=== PATIENT | female | born 1935 | race Caucasian/White ===

== ENCOUNTER 2018-10-04 11:35 | Inpatient (IN) | payer OTHER ==
--- NOTE | 2018-10-04 12:34 | EKG ---
Test Date: 2018-10-04 Test Time: 12:07:49 Tube Mill Operator: MERLENE MEASUREMENT RESULTS: Intervals: Rate: 80 LA: QRSD: 82 QT: 368 QTc: 424 [place]: P: LA: QRS: 37 T: 63 INTERPRETIVE STATEMENTS: Atrial fibrillation with premature ventricular or aberrantly conducted complexes Abnormal ECG No previous ECG available for comparison Electronically Signed On 10-04-18 12:33:25 HAND OR MACHINE PASTER by Braeden Oneil
[2018-10-04 12:44] LABS: Absolute Lymphocytes (CBC) 1.4 K/uL (0.7-4.9); Absolute Monocytes 0.8 K/uL (0.1-1.3); Absolute Neutrophil 5.6 K/uL (1.8-8.0); Basophils % 0.9 % (0-1.3); Eosinophils % 0.7 % (0-4.4); Hematocrit 46.5 % (36.0-45.0); Lymphocytes % 17.6 % (15.3-44.8); MPV 9.4 fL (7.6-11.3); Monocytes % 9.9 % (3.3-12.3); RBC Red Blood Cell Count 5.07 M/uL (3.86-4.86)
[2018-10-04 12:48] LABS: Protime INR 1.08
--- NOTE | 2018-10-04 12:48 | RAD REPORT ---
EXAM DESCRIPTION: RAD - Chest Single View - 10/04/2018 12:42 pm CLINICAL HISTORY: weakness, new onset afib Chest pain. COMPARISON: Chest Single View dated 11/28/2016; CHEST PA AND LAT 2 VIEW dated 02/15/2012 FINDINGS: Portable technique limits examination quality. The lungs are grossly clear. The heart is upper limit of normal in size. No displaced fractures. IMPRESSION: No acute intrathoracic process suspected.
[2018-10-04 12:57] LABS: ALT/SGPT 25 U/L (12-78); AST/SGOT 24 U/L (15-37); Alkaline Phosphatase 117 U/L (45-117); BUN Blood Urea Nitrogen 14 mg/dL (7-18); Bicarbonate 28 mmol/L (21-32); Bilirubin Direct 0.2 mg/dL (0-0.2); Bilirubin Total 0.7 mg/dL (0.2-1.0); Glucose Level 99 mg/dL (74-106); Magnesium 2.1 mg/dL (1.8-2.4); NT PRO-BNP 1426 pg/mL (<450); Potassium 3.6 mmol/L (3.5-5.1); Protein, Total 8.2 g/dL (6.4-8.2); Sodium Level 140 mmol/L (136-145); Troponin (Emerg Dept Use Only) < 0.02 ng/mL (0.0-0.045)
[2018-10-04] MEDS ORDERED: ENOXAPARIN 100 MG/ML SYR SQ ONE (13:32)
[2018-10-04 13:34] LABS: Thyroid Stimulating Hormone 4.94 uIU/mL (0.360-3.740)
--- NOTE | 2018-10-04 14:11 | ER ---
Nurse's Notes [facility] Name: Mariely Bass Age: 82 yrs Sex: Female : 1935 Arrival Date: 10/04/2018 Time: 11:40 Bed 8 Private MD: Eduin Araiza E Diagnosis: Unspecified atrial fibrillation-new onset Presentation: 10/04 11:46 Presenting complaint: Child states: she started feeling tired yesterday, i fell last tw2 week and i hurt my left rib, "i feel puny" per pt. Transition of care: patient was not received from another setting of care. Onset of symptoms was October 04, 2018. Risk Assessment: Do you want to hurt yourself or someone else? Patient reports no desire to harm self or others. Initial Sepsis Screen: Does the patient meet any 2 criteria? No. Patient's initial sepsis screen is negative. Does the patient have a suspected source of infection? No. Patient's initial sepsis screen is negative. Care prior to arrival: None. 11:46 Method Of Arrival: Wheelchair tw2 11:46 Acuity: RUDDY 3 tw2 Triage Assessment: 11:48 General: Appears in no apparent distress. Behavior is calm, cooperative, appropriate tw2 for age. Pain: Denies pain. Historical: - Allergies: 11:48 PENICILLINS; tw2 - Home Meds: 11:48 levothyroxine oral [Active]; tw2 - PMHx: 11:48 breast cancer; Hypothyroidism; tw2 - PSHx: 11:48 Tubal ligation; tw2 - Immunization history:: Adult Immunizations. - Social history:: Smoking status: Patient/guardian denies using tobacco. - Ebola Screening: : Patient denies travel to an Ebola-affected area in the 21 days before illness onset. Screenin:11 Abuse screen: Denies threats or abuse. Denies injuries from another. Nutritional bp screening: No deficits noted. Tuberculosis screening: No symptoms or risk factors identified. Fall Risk None identified. Assessment: 11:50 General: Appears distressed, comfortable, obese, Behavior is cooperative, appropriate bp for age, listless. Pain: Denies pain. Neuro: Level of Consciousness is awake, alert, obeys commands, Oriented to person, place, time, situation, Appropriate for age. Cardiovascular: Rhythm is atrial fibrillation. Respiratory: Airway is patent Respiratory effort is even, unlabored, Respiratory pattern is regular, symmetrical. GI: No signs and/or symptoms were reported involving the gastrointestinal system. : No signs and/or symptoms were reported regarding the genitourinary system. EENT: No deficits noted. Derm: No deficits noted. Musculoskeletal: Circulation, motion, and sensation intact. Range of motion: intact in all extremities. 12:11 Reassessment: NEW ONSET AFIB NOTED ON EKG. bp 13:27 Reassessment: ALL CURRENT ORDERS COMPLETED, DISPO PENDING. bp 14:36 Reassessment: AFIB ON MONITOR, ADMIT IN PROCESS. bp 16:00 Reassessment: ADMIT ON HOLD FOR CT BRAIN AND RESULT. bp 17:00 Reassessment: ADMIT IN PROCESS, MRI PENDING. bp Vital Signs: 11:47 BP 180 / 87; Pulse 85; Resp 19; Temp 98.1(O); Pulse Ox 98% on R/A; Weight 81.65 kg (R); tw2 Height 5 ft. 4 in. (162.56 cm); Pain 0/10; 12:07 BP 191 / 99; Pulse 80; Resp 16; Pulse Ox 98% ; bp 12:30 BP 183 / 77; Pulse 82; Resp 15; Pulse Ox 99% ; bp 13:27 BP 181 / 85; Pulse 86; Resp 19; Pulse Ox 96% ; bp 14:30 BP 184 / 89; Pulse 86; Resp 11; Pulse Ox 97% ; bp 15:00 BP 179 / 80; Pulse 86; Resp 15; Pulse Ox 96% ; bp 16:00 BP 170 / 83; Pulse 92; Resp 19; Pulse Ox 98% ; bp 17:00 BP 185 / 85; Pulse 92; Resp 20; Pulse Ox 97% ; bp 11:47 Body Mass Index 30.90 (81.65 kg, 162.56 cm) tw2 ED Course: 11:40 Patient arrived in ED. mr 11:40 Eduin Araiza MD is Private Physician. mr 11:47 Triage completed. tw2 11:48 Arm band placed on. tw2 11:59 Blane Wylie, JULIAN is Primary Nurse. bp 12:00 Edwardo Devi NP is PHCP. pm1 12:00 Niall Blanchard MD is Attending Physician. pm1 12:11 Patient has correct armband on for positive identification. Placed in gown. Bed in low bp position. Call light in reach. Side rails up X2. Adult w/ patient. 12:25 EKG done, by technical support director. reviewed by Edwardo Devi NP. Initial lab(s) drawn, by , jb1 sent to lab. Inserted saline lock: 22 gauge in right antecubital area, using aseptic technique. Blood collected. 12:37 X-ray completed. Portable x-ray completed in exam room. Patient tolerated procedure jb2 well. 12:43 XRAY Chest (1 view) In Process Unspecified. EDMS 14:09 Codey Chisholm DO is Hospitalizing Provider. pm1 16:[address] 2 16:23 CT completed. Patient tolerated procedure well. Patient moved back from CT. ky 16:50 Straight cath inserted, using sterile technique, 14 Fr. Specimen obtained. jb1 16:51 Urine Culture Sent. jb1 17:21 No provider procedures requiring assistance completed. Patient admitted, IV remains in bp place. Administered Medications: 13:20 Drug: Lovenox 1 mg/kg Route: Sub-Q; Site: right lower abdomen; bp 14:40 Follow up: Response: No adverse reaction bp Outcome: 14:11 Decision to Hospitalize by Provider. pm1 17:20 Admitted to Med/surg accompanied by tech, family with patient, via stretcher, room 221, bp with chart, Report called to CRISTINE JORDAN 17:20 Condition: stable 17:20 Instructed on the need for admit. 17:39 Patient left the ED. bp Signatures: Dispatcher [employer] EDNJ Bg Brooks jb1 Emilee Cote, Noe jb2 Edwardo Devi, JUANIS SHAKER REPAIRER pm1 Zohra Olivarez, RN RN tw2 Daron Manley Victoria vm2 Blane Wylie, JULIAN RN bp Corrections: (The following items were deleted from the chart) 16:51 16:50 Straight cath inserted, using sterile technique, 16 Fr. Specimen obtained. jb1 jb1
--- NOTE | 2018-10-04 14:11 | EDPHYS ---
Physician Documentation [facility] Name: Mariely Bass Age: 82 yrs Sex: Female : 1935 Arrival Date: 10/04/2018 Time: 11:40 Bed 8 Private MD: Eduin Araiza E ED Physician Niall Blanchard HPI: 10/04 01:00 This 82 yrs old Female presents to ER via Wheelchair with complaints of High pm1 Blood Pressure, Weakness. 01:00 The patient presents to the emergency department with weakness of the entire body, pm1 generalized weakness. Onset: The symptoms/episode began/occurred 1 week(s) ago. Context: Generalized weakness with exertion, walking. Associated signs and symptoms: Pertinent negatives: dizziness, fever, headache, shortness of breath, nausea, vomiting, chest pain. Severity of symptoms: in the emergency department the symptoms are worse. The patient has not experienced similar symptoms in the past. The patient has not recently seen a physician, the patient's primary care provider is Dr. Araiza. Patient had a fall 1 week ago with onset of generalized weakness that resulted in bruising to left rib cage area. No headache, head injury, LOC, or neck pain. Historical: - Allergies: 11:48 PENICILLINS; tw2 - Home Meds: 11:48 levothyroxine oral [Active]; tw2 - PMHx: 11:48 breast cancer; Hypothyroidism; tw2 - PSHx: 11:48 Tubal ligation; tw2 - Immunization history:: Adult Immunizations. - Social history:: Smoking status: Patient/guardian denies using tobacco. - Ebola Screening: : Patient denies travel to an Ebola-affected area in the 21 days before illness onset. ROS: 01:00 Constitutional: Negative for fever, chills, and weight loss, Eyes: Negative for injury, pm1 pain, redness, and discharge, ENT: Negative for injury, pain, and discharge, Neck: Negative for injury, pain, and swelling, Cardiovascular: Negative for chest pain, palpitations, and edema, Respiratory: Negative for shortness of breath, cough, wheezing, and pleuritic chest pain, Abdomen/GI: Negative for abdominal pain, nausea, vomiting, diarrhea, and constipation, Back: Negative for injury and pain, : Negative for injury, bleeding, discharge, and swelling, MS/Extremity: Negative for injury and deformity, Skin: Negative for injury, rash, and discoloration. 01:00 Neuro: Positive for weakness, Negative for dizziness, headache, numbness, tingling. Exam: 01:00 Constitutional: This is a well developed, well nourished patient who is awake, alert, pm1 and in no acute distress. Head/Face: Normocephalic, atraumatic. Eyes: Pupils equal round and reactive to light, extra-ocular motions intact. Lids and lashes normal. Conjunctiva and sclera are non-icteric and not injected. Cornea within normal limits. Periorbital areas with no swelling, redness, or edema. ENT: Nares patent. No nasal discharge, no septal abnormalities noted. Tympanic membranes are normal and external auditory canals are clear. Oropharynx with no redness, swelling, or masses, exudates, or evidence of obstruction, uvula midline. Mucous membranes moist. Neck: Trachea midline, no thyromegaly or masses palpated, and no cervical lymphadenopathy. Supple, full range of motion without nuchal rigidity, or vertebral point tenderness. No Meningismus. Chest/axilla: Normal chest wall appearance and motion. Nontender with no deformity. No lesions are appreciated. 01:00 Respiratory: Lungs have equal breath sounds bilaterally, clear to auscultation and percussion. No rales, rhonchi or wheezes noted. No increased work of breathing, no retractions or nasal flaring. Abdomen/GI: Soft, non-tender, with normal bowel sounds. No distension or tympany. No guarding or rebound. No evidence of tenderness throughout. Back: No spinal tenderness. No costovertebral tenderness. Full range of motion. Skin: Warm, dry with normal turgor. Normal color with no rashes, no lesions, and no evidence of cellulitis. MS/ Extremity: Pulses equal, no cyanosis. Neurovascular intact. Full, normal range of motion. 01:00 Cardiovascular: Rate: normal, Rhythm: irregular, Pulses: no pulse deficits are appreciated, Heart sounds: normal, Edema: is not appreciated. 01:00 Atrial fibrillation 01:00 Neuro: Orientation: is normal, Motor: is normal, moves all fours. Vital Signs: 11:47 BP 180 / 87; Pulse 85; Resp 19; Temp 98.1(O); Pulse Ox 98% on R/A; Weight 81.65 kg (R); tw2 Height 5 ft. 4 in. (162.56 cm); Pain 0/10; 12:07 BP 191 / 99; Pulse 80; Resp 16; Pulse Ox 98% ; bp 12:30 BP 183 / 77; Pulse 82; Resp 15; Pulse Ox 99% ; bp 13:27 BP 181 / 85; Pulse 86; Resp 19; Pulse Ox 96% ; bp 14:30 BP 184 / 89; Pulse 86; Resp 11; Pulse Ox 97% ; bp 15:00 BP 179 / 80; Pulse 86; Resp 15; Pulse Ox 96% ; bp 16:00 BP 170 / 83; Pulse 92; Resp 19; Pulse Ox 98% ; bp 17:00 BP 185 / 85; Pulse 92; Resp 20; Pulse Ox 97% ; bp 11:47 Body Mass Index 30.90 (81.65 kg, 162.56 cm) tw2 MDM: 12:05 Patient medically screened. pm1 13:37 Data reviewed: vital signs. Data interpreted: Pulse oximetry: on room air is 96 %. pm1 Interpretation: normal. Counseling: I had a detailed discussion with the patient and/or guardian regarding: the historical points, exam findings, and any diagnostic results supporting the discharge/admit diagnosis, lab results, radiology results. 14:09 Physician consultation: Codey Chisholm DO was called at 14:11, was contacted at 14:11, pm1 regarding admission, patient's condition, and will see patient in ED, shortly. 17:08 ED course: CT report discussed with Dr. Chisholm. MRI ordered. May move the patient to pm1 the floor for admission since no intracranial bleed present. 10/04 12:20 Order name: Basic Metabolic Panel; Complete Time: 13:04 pm1 10/04 12:20 Order name: CBC with Diff; Complete Time: 12:50 pm1 10/04 12:20 Order name: LFT's; Complete Time: 13:04 pm1 10/04 12:20 Order name: Magnesium; Complete Time: 13:04 pm1 10/04 12:20 Order name: NT PRO-BNP; Complete Time: 13:04 pm1 10/04 12:20 Order name: PT-INR; Complete Time: 13:24 pm1 10/04 12:20 Order name: Troponin (emerg Dept Use Only); Complete Time: 13:04 pm1 10/04 12:20 Order name: XRAY Chest (1 view); Complete Time: 12:50 pm1 10/04 12:40 Order name: TSH; Complete Time: 13:56 pm1 10/04 13:36 Order name: T4 Free; Complete Time: 13:56 EDMS 10/04 16:09 Order name: CT Head Brain wo Cont jr8 10/04 16:45 Order name: Urine Culture pm1 10/04 16:46 Order name: Urine Dipstick--Ancillary (enter results) em1 10/04 16:48 Order name: CT; Complete Time: 16:57 EDMS 10/04 12:20 Order name: EKG; Complete Time: 12:20 pm1 10/04 12:20 Order name: Cardiac monitoring; Complete Time: 12:26 pm1 10/04 12:20 Order name: EKG - Nurse/Tech; Complete Time: 12:26 pm1 10/04 12:20 Order name: IV Saline Lock; Complete Time: 12:26 pm1 10/04 12:20 Order name: Labs collected and sent; Complete Time: 12:26 pm1 10/04 12:20 Order name: O2 Per Protocol; Complete Time: 12:26 pm1 10/04 12:20 Order name: O2 Sat Monitoring; Complete Time: 12:26 pm1 10/04 12:20 Order name: Urine Dipstick-Ancillary (obtain specimen); Complete Time: 16:44 pm1 10/04 16:37 Order name: Straight Cath - Urine; Complete Time: 16:37 bp 10/04 17:04 Order name: MRI Stroke Protocol pm1 Administered Medications: 13:20 Drug: Lovenox 1 mg/kg Route: Sub-Q; Site: right lower abdomen; bp 14:40 Follow up: Response: No adverse reaction bp Disposition: 10/05 07:59 Co-signature as Attending Physician, Niall Blanchard MD I agree with the assessment and kdr plan of care. Disposition: 10/04/18 14:11 Hospitalization ordered by Codey Chisholm for Observation. Preliminary diagnosis is Unspecified atrial fibrillation - new onset. - Bed requested for Telemetry/MedSurg (observation). - Status is Observation. bp - Condition is Stable. - Problem is new. - Symptoms have improved. UTI on Admission? No Signatures: Dispatcher [employer] EDMS Niall Blanchard MD MD kdr Martinez, Eric em1 Edwardo Devi, SHEET HEATER SHEET HEATER pm1 Zohra Olivarez RN RN tw2 Blane Wylie RN RN bp Corrections: (The following items were deleted from the chart) 10/04 16:08 14:11 Hospitalization Ordered by Codey Chisholm DO for Observation. Preliminary em1 diagnosis is Unspecified atrial fibrillation - new onset. Bed requested for Telemetry/MedSurg (observation). Status is Observation. Condition is Stable. Problem is new. Symptoms have improved. UTI on Admission? No. pm1 17:39 16:08 10/04/2018 14:11 Hospitalization Ordered by Codey Chisholm DO for Observation. bp Preliminary diagnosis is Unspecified atrial fibrillation - new onset. Bed requested for Telemetry/MedSurg (observation). Status is Observation. Condition is Stable. Problem is new. Symptoms have improved. UTI on Admission? No. em1
--- NOTE | 2018-10-04 15:58 | P.HP ---
Certification for Inpatient Patient admitted to: Observation With expected LOS: <2 Midnights Patient will require the following post-hospital care: None Practitioner: I am a practitioner with admitting privileges, knowledge of patient current condition, hospital course, and medical plan of care. Services: Services provided to patient in accordance with Admission requirements found in Title 42 Section 412.3 of the Code of Federal Regulations Patient History Date of Service: 10/04/18 Primary Care Provider: Dr. Oden Reason for admission: Fatigue History of Present Illness: 82-year-old female presented to emergency room with fatigue. Patient also had a fall at home. This appeared to be mechanical. Patient came to the ER for further evaluation. Patient with underlying history of hypothyroidism. Patient denied any significant chest pain, palpitations or shortness of breath. In the ER patient was evaluated. Patient found to be in new onset atrial fibrillation but rate controlled. Hemoglobin 15.6, sodium 140, potassium 3.6. Chest x-ray unremarkable. Patient was admitted for further evaluation and treatment. When I saw the patient, she appeared stable. Daughter at bedside. Patient reports no prior history of palpitations. Patient stable at this time. Blood pressure slightly elevated. Family history of atrial fibrillation noted. Allergies Penicillins Allergy (Verified 02/15/12 17:01) Anaphylaxis No Known Allergies Allergy (Uncoded 11/28/16 15:31) Unknown Home medications list reviewed: Yes - Past Medical/Surgical History Diabetic: No -: Hypothyroidism -: History breast cancer -: Bilateral breast mastectomy Psychosocial/ Personal History: Patient is single. She lives by herself. She has 3 children. - Family History Mother -: Other (see notes) (Atrial fibrillation) Sister -: Other (see notes) (Atrial fibrillation) - Social History Smoking Status: Never smoker Alcohol use: No CD- Drugs: No Caffeine use: Yes Place of Residence: Home Review of Systems General: Weakness Eyes: Unremarkable ENT: Unremarkable Respiratory: Unremarkable Cardiovascular: Unremarkable Gastrointestinal: Unremarkable Genitourinary: Unremarkable Musculoskeletal: Unremarkable Integumentary: Unremarkable Neurological: Unremarkable Lymphatics: Unremarkable Physical Examination - Physical Exam General: Alert, In no apparent distress, Oriented x3, Cooperative HEENT: Atraumatic, Normocephalic, PERRLA, Mucous membr. moist/pink Neck: Supple, No Thyromegaly Respiratory: Clear to auscultation bilaterally, Normal air movement Cardiovascular: Abnormal pulses (Atrial fibrillation, rate controlled) Gastrointestinal: Normal bowel sounds, Soft and benign, Non-distended, No tenderness, No masses, No rebound, No guarding Musculoskeletal: No erythema, No tenderness, No warmth Integumentary: No erythema, No warmth, No cyanosis, Tenderness/swelling (Mild edema to the lower extremity) Neurological: Normal speech, Normal strength at 5/5 x4 extr, Normal tone, Normal affect - Studies Laboratory Data (last 24 hrs) 10/04/18 12:20: PT 12.7 H, INR 1.08 10/04/18 12:20: WBC 8.0, Hgb 15.6 H, Hct 46.5 H, Plt Count 213 10/04/18 12:20: Sodium 140, Potassium 3.6, BUN 14, Creatinine 0.93, Glucose 99, Magnesium 2.1, Total Bilirubin 0.7, AST 24, ALT 25, Alkaline Phosphatase 117 Assessment and Plan - Plan Impression: Fatigue secondary to new onset atrial fibrillation, rate controlled Hypertension Hypothyroidism Recent fall likely mechanical Plan: Patient will be admitted for further evaluation. Case discussed with cardiology. Cardiology to see patient and decide on anti rhythm medication or rate control medication. Will start Lovenox at 1 milligram/kilogram subcu twice daily. Patient will likely require long-term chronic anti coagulation therapy. Will address this further tomorrow. Will obtain echocardiogram. Will need to obtain home medication. Thyroid medication may need to be adjusted. Will physical therapy assess ambulation. Await further recommendations from cardiology. Fall precautions in place. Will continue to monitor and reassess. Discharge Plan: Home Plan to discharge in: 24 Hours - Advance Directives Does patient have a Living Will: No Does patient have a Durable POA for Healthcare: No - Code Status/Comfort Care Code Status Assessed: Yes (Patient full code.) Time Spent Managing Pts Care (In Minutes): 55
--- NOTE | 2018-10-04 16:47 | RAD REPORT ---
EXAM DESCRIPTION: CT - Head Brain Wo Cont - 10/04/2018 4:23 pm CLINICAL HISTORY: confusion COMPARISON: None TECHNIQUE: Computed axial tomography of the head was obtained. IV contrast was not requested. All CT scans are performed using dose optimization technique as appropriate and may include automated exposure control or mA/KV adjustment according to patient size. FINDINGS: An intracranial bleed is not seen . The ventricles are normal in caliber. No extra-axial fluid collection is noted. A low-density area is present within the right temporal lobe. Fluid within the sinuses/ mastoids is not seen. IMPRESSION: Vague low-density area within the right temporal lobe is nonspecific. Further evaluation with an enhanced MRI Brain recommended
--- NOTE | 2018-10-04 17:53 | CON ---
Reason For Consult: Atrial fibrillation. History Of Present Illness: Ms. Bass has been acting abnormally for several weeks. The family has been concerned. When I talked to her, she seems more confused and about 2 weeks ago, she fell, has a bruise on her left rib cage. It was hurting a few weeks ago, now it is causing minimal or no pain. She was not having pain. She does felt that something was not right with the way she felt, so she took her blood pressure, it was higher than usual and asked to be brought to the emergency room there . She was found to be in atrial fibrillation. This to a new diagnosis for her. We only have 1 EKG in our hospital. It is from today just a little afternoon and it shows atrial fib and PVCs. No othe r abnormalities. The patient does not have any history of heart trouble. She has a history of breas t cancer with bilateral mastectomies in the remote past. She is free of any disease. She takes a th yroid medication and apparently takes a blood pressure medicine. She is not able to tell us what med icine it is. Her daughter likewise was not sure of the exact medication regimen. She has had a dose of Lovenox already because of her atrial fibrillation. Allergies: SHE IS ALLERGIC TO PENICILLIN. Social History: She uses no tobacco, no alcohol, no illegal drugs. Physical Examination: General: On physical exam, the patient is awake. She is alert, but she is confused and she answers questions in a way that makes the daughter think she is not aware of things. She has had her breast cancer was in the 1980s, but she actually had the surgery in 2011 and radiation in 2011. VITAL SIGNS: Blood pressure 180/87, pulse 85, more recent blood pressure 181/85. She has atrial fib rillation on telemetry and on the 12-lead EKG. Lungs: Clear. Heart: Irregularly irregular. An echocardiogram today showed mild mitral regurgitation, mild tricuspid regurgitation, normal left v entricular ejection fraction. Normal LV size and function, but that is quite an old echocardiogram, that is from 2014. I think the patient should get a repeat echocardiogram. She should be fully anti coagulated, but only after we make sure she does not have a hemorrhagic stroke. I believe she has pr obably had several strokes and I would recommend a neurological consultation to see if we should perh aps wait on anticoagulation for some time. We do not want to revert her rhythm to normal right now. I think that would be very high risk for increasing her risk of stroke. Anticoagulation for several weeks would be recommended before we try to restore sinus rhythm in her. Thank you very much for your kind referral of Ms. Bass. I will follow her with you. GRIS/AYDIN Voice ID: [id number] Report ID: [id number]
[2018-10-04 17:55] VITALS: BMI 30.9
[2018-10-04] MEDS ORDERED: ONDANSETRON 4 MG/2 ML VIAL IV PRN (17:58)
[2018-10-04] MEDS ORDERED: ACETAMINOPHEN 500 MG TAB PO PRN (17:58)
[2018-10-04 18:45] LABS: CKMB Creatine Kinase MB 1.9 ng/mL (0.3-3.6); Troponin I 0.02 ng/mL (0.0-0.045)
[2018-10-04 19:22] LABS: Urine Blood NEGATIVE (NEG); Urine Glucose NEGATIVE (NEG); Urine Protein 1+ (NEG); Urine Specific Gravity 1.015 (1.005-1.030)
--- NOTE | 2018-10-04 20:06 | RAD REPORT ---
EXAM DESCRIPTION: MRI - MRA Head Wo Cont - 10/04/2018 7:43 pm CLINICAL HISTORY: Left-sided weakness/confusion COMPARISON: None. TECHNIQUE: Magnetic resonance angiogram was performed. 3D MIPS reconstruction performed FINDINGS: The right middle cerebral artery is narrowed 12 millimeters from its origin with the right internal carotid artery. The more peripheral branches are also narrowed. The anterior cerebral, left middle cerebral, posterior cerebral, distal internal carotid and basilar arteries do not demonstrate a significant stenosis. An aneurysm is not displayed. IMPRESSION: Narrowing of right middle cerebral artery
--- NOTE | 2018-10-04 20:08 | RAD REPORT ---
EXAM DESCRIPTION: MRI - MRA Neck W/Wo Cont - 10/04/2018 7:43 pm CLINICAL HISTORY: Left-sided weakness COMPARISON: None. TECHNIQUE: Magnetic resonance angiogram of the neck was performed. 18 cc MultiHance was administered intravenously. 3D MIPS reconstruction performed FINDINGS: Mild plaque is present within the common and internal carotid arteries. Moderate plaque is present within the proximal right external carotid artery. An aneurysm is not seen The vertebral arteries are codominant without visualization of an abnormality. IMPRESSION: Mild stenosis of the common and internal carotid arteries Moderate stenosis proximal right external carotid artery NASCET criteria used. Mild 0-49% stenosis Moderate 50-69% stenosis Severe 70-99% stenosis
--- NOTE | 2018-10-04 20:16 | RAD REPORT ---
EXAM DESCRIPTION: MRI - Brain W/Wo Cont - 10/04/2018 7:43 pm CLINICAL HISTORY: Confusion and left-sided weakness COMPARISON: October 04, [address] TECHNIQUE: Axial, sagittal, and coronal magnetic images of the brain were obtained. 18 cc MultiHance administered intravenously FINDINGS: Diffusion-weighted/ADC mapping demonstrate small areas of abnormal signal signal within th e right temporal lobe. Additional abnormal signal is seen within the right basal ganglia and right ca udate. All of these represent acute infarcts. The ventricles are normal in caliber. No abnormal enhancement within the brain is seen. An extra-axial fluid collection is not noted. Fluid within the sinuses/mastoids is not seen IMPRESSION: Acute infarcts involving the right basal ganglia, right caudate and right temporal lobe perhaps from emboli from the heart Fany goldman charge nurse was notified at 805 PM on October 04, 2018
--- NOTE | 2018-10-04 20:18 | RAD REPORT ---
EXAM DESCRIPTION: USCarotid Artery Bilateral10/04/2018 8:08 pm CLINICAL HISTORY: Left-sided weakness/CVA COMPARISON: None FINDINGS: The velocity of the right internal carotid artery equals 111 cm/sec. The right ICA/CCA rat io 1.3 The velocity of the left internal carotid artery equals 154 cm/sec. The left ICA/CCA ratio 1.4 Mild plaque is present within the common and internal carotid arteries. Moderate plaque is present wi thin the right external carotid artery The vertebral arteries demonstrate antegrade flow IMPRESSION: Mild stenosis common and internal carotid arteries Moderate stenosis right external carotid artery NASCET criteria used. Mild 0-49% stenosis Moderate 50-69% stenosis Severe 70-99% stenosis
[2018-10-04] MEDS ORDERED: HYDRALAZINE HCL 20 MG/ML VIAL IV PRN (20:24)
[2018-10-04] MEDS: ENOXAPARIN 80 MG/0.8 ML SQ SCH (20:40)
[2018-10-04] MEDS: ATORVASTATIN 40 MG TAB PO SCH (20:40)
[2018-10-04] MEDS: METOPROLOL TAR 25 MG TAB PO SCH (20:41)
[2018-10-05 03:24] LABS: Absolute Lymphocytes (CBC) 1.5 K/uL (0.7-4.9); Absolute Monocytes 0.9 K/uL (0.1-1.3); Absolute Neutrophil 5.7 K/uL (1.8-8.0); Basophils % 1.2 % (0-1.3); Eosinophils % 1.2 % (0-4.4); Hematocrit 43.9 % (36.0-45.0); Lymphocytes % 18.1 % (15.3-44.8); MPV 9.4 fL (7.6-11.3); Monocytes % 11.1 % (3.3-12.3); RBC Red Blood Cell Count 4.78 M/uL (3.86-4.86)
[2018-10-05 03:32] LABS: Magnesium 2.1 mg/dL (1.8-2.4); Potassium 3.6 mmol/L (3.5-5.1)
[2018-10-05 03:34] LABS: CKMB Creatine Kinase MB 1.5 ng/mL (0.3-3.6); Troponin I 0.02 ng/mL (0.0-0.045)
[2018-10-05] MEDS: METOPROLOL TAR 25 MG TAB PO SCH ×2 (05:14→18:49)
[2018-10-05] MEDS ORDERED: POTASSIUM CL SA 10 MEQ TAB PO ONE (06:26)
[2018-10-05] MEDS: ENOXAPARIN 80 MG/0.8 ML SQ SCH ×2 (09:05→21:13)
--- NOTE | 2018-10-05 12:04 | ECHO ---
HEIGHT: 5 ft 4 in WEIGHT: 180 lb 0 oz DATE OF STUDY: 10/05/[address]: Codey Chisholm DO 2-DIMENSIONAL: YES M.MODE: YES DOPPLER: YES COLOR FLOW: YES TDS: NO PORTABLE: NO DEFINITY: NO BUBBLE STUDY: NO DIAGNOSIS: NEW ONSET ATRIAL FIBRILLATION CARDIAC HISTORY: CATHERIZATION: NO SURGERY: NO PROSTHETIC VALVE: NO PACEMAKER: NO MEASUREMENTS (cm) DIASTOLIC (NORMALS) SYSTOLIC (NORMALS) IVSd 1.0 (0.6-1.2) LA Diam 3.1 (1.9-4.0) LVEF 66% LVIDd 3.3 (3.5-5.7) LVIDs 2.1 (2.0-3.5) %FS 36% LVPWd 1.0 (0.6-1.2) Ao Diam 3.0 (2.0-3.7) 2 DIMENSIONAL ASSESSMENT: RIGHT ATRIUM: NORMAL LEFT ATRIUM: NORMAL RIGHT VENTRICLE: NORMAL LEFT VENTRICLE: NORMAL TRICUSPID VALVE: NORMAL MITRAL VALVE: NORMAL PULMONIC VALVE: NORMAL AORTIC VALVE: SCLEROSIS PERICARDIAL EFFUSION: NONR AORTIC ROOT: NORMAL LEFT VENTRICULAR WALL MOTION: NORMAL DOPPLER/COLOR FLOW: TRACE TRICUSPID AND MITRAL REGURGITATION. COMMENTS: TRACE TRICUSPID AND MITRAL REGURGITATION. AORTIC SCLEROSIS. NORMAL LEFT VENTRICULAR SIZE AND FUNCTION. NORMAL LEFT ATRIAL SIZE. TECHNOLOGIST: Mat WILLOUGHBY
--- NOTE | 2018-10-05 13:05 | P.PN ---
Subjective Date of Service: 10/05/18 Primary Care Provider: Dr. Oden Chief Complaint: Fatigue Subjective: Doing well (Still with some decrease mentation. But alert oriented and appropriate.) Physical Examination - Vital Signs Temperature: 97.4 F Blood Pressure: 165/74 Pulse: 57 Respirations: 16 Pulse Ox (%): 95 - Physical Exam General: Alert, In no apparent distress, Oriented x3, Cooperative HEENT: Atraumatic Neck: Supple Respiratory: Clear to auscultation bilaterally, Normal air movement Cardiovascular: Irregular heart rate/rhythm (Atrial fibrillation, rate controlled) Gastrointestinal: Normal bowel sounds, Non-distended, No tenderness, No masses, No rebound, No guarding Musculoskeletal: No erythema, No tenderness, No warmth Integumentary: No erythema, No warmth, No cyanosis Neurological: Normal speech, Normal strength at 5/5 x4 extr, Normal tone, Normal affect - Studies Laboratory Data (last 24 hrs) 10/05/18 03:06: Sodium 143, Potassium 3.6, BUN 16, Creatinine 0.81, Glucose 104 , Magnesium 2.1, Triglycerides 95, Cholesterol 213 H, HDL Cholesterol 65 H, Cholesterol/HDL Ratio 3.28 10/05/18 03:06: WBC 8.3, Hgb 14.8, Hct 43.9, Plt Count 195 10/05/18 03:06: Troponin I 0.02 10/04/18 18:16: Troponin I 0.02 10/04/18 12:20: PT 12.7 H, INR 1.08 Medications List Reviewed: Yes Assessment & Plan Discharge Plan: Other (Inpatient rehab) Plan to discharge in: Greater than 2 days Physician Review Additional Text: Impression: New onset atrial fibrillation complicated with 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 Patient continues on Lovenox at 1 milligram/kilogram subcu twice daily. This will be transition to oral chronic anti coagulation therapy at discharge. Will continue with metoprolol for rate control. Patient with new acute stroke likely embolic. Will discuss with Neurology. Will have physical therapy, occupational therapy, speech therapy assess patient. Patient will be a good candidate for inpatient rehab. Await further recommendation. Patient lives by herself and would be at high risk for fall. Patient with recent fall. Will discuss with social security specialist. Will put in a consult for inpatient rehab. Hypertension: Continue with rate control medication-metoprolol. Will monitor and adjust appropriately. Hyperlipidemia: Continue with Lipitor. Hypothyroidism: Restart home medication. Recent fall: Physical therapy to assess. Anticipate discharge to inpatient rehab due to recent fall. Time Spent Managing Pts Care (In Minutes): 55
--- NOTE | 2018-10-05 13:05 | EKG ---
Test Date: 2018-10-05 Test Time: 08:30:09 Enamel Burner: MEDINA MEASUREMENT RESULTS: Intervals: Rate: 61 AK: QRSD: 70 QT: 450 QTc: 453 [place]: P: AK: QRS: 80 T: 48 INTERPRETIVE STATEMENTS: Atrial fibrillation Abnormal ECG Compared to ECG 10/04/2018 12:07:49 Ventricular premature complex(es) no longer present Electronically Signed On 10-05-18 13:03:51 RELIGIOUS STUDIES PROFESSOR by Abraham Cortés
--- NOTE | 2018-10-05 13:58 | RAD REPORT ---
EXAM DESCRIPTION: RAD - Barium Swallow Modified - 10/05/2018 1:52 pm CLINICAL HISTORY: Dysphagia COMPARISON: None. TECHNIQUE: The patient was given liquid, semi-solid and solid forms of barium. Lateral view fluorosc opic imaging was performed in conjunction with speech pathology service. FINDINGS: Cineloop acquisitions: 12 Fluoro time: 2 minutes 1 second Laryngeal penetration cleared wtih two consecutive swallows of thin. Mild to moderate esophageal sta sis and retropulsion with regular solids and barium tablet with regular thin. IMPRESSION: Modified barium swallow as detailed above and on speech pathology report.
--- NOTE | 2018-10-05 14:15 | PN ---
Date of Progress Note: 10/05/2018 Ms. Bass is 82, was admitted by Dr. Chisholm for atrial fibrillation, was seen by Dr. Oneil. She cutler s had new onset atrial fibrillation. There was some worry about a hemorrhagic stroke, however, an MR I and MRA as well as carotid Doppler showed no hemorrhagic stroke. There was some mild stenosis in b oth carotid arteries. There was some middle cerebral artery narrowing. I think we still should go a head and anticoagulate her. Continue her present regimen. I think she can go home and we can probab ly see her in the office in the next couple of weeks and do a direct current cardioversion. We shoul d also consider doing an outpatient Lexiscan. From my standpoint, she can go home whenever it is oka y with Dr. Chisholm. HORACE/AYDIN Voice ID: [id number] Report ID: [id number]
[2018-10-05] MEDS: ASPIRIN EC 81 MG TAB PO SCH (14:27)
[2018-10-05] MEDS: MULTIVITAMINS,THERAPEUT 1 TAB PO SCH (14:27)
[2018-10-05] MEDS ORDERED: LACTULOSE 20 GM/30 ML UCUP PO PRN ×2 (18:58→21:56)
[2018-10-05] MEDS ORDERED: METOPROLOL TAR 25 MG TAB PO SCH (19:24)
[2018-10-05] MEDS: ATORVASTATIN 40 MG TAB PO SCH (21:13)
[2018-10-05] MEDS ORDERED: DOCUSATE NA 100 MG CAP PO SCH (22:00)
[2018-10-06 04:41] LABS: Absolute Lymphocytes (CBC) 1.6 K/uL (0.7-4.9); Absolute Monocytes 0.8 K/uL (0.1-1.3); Absolute Neutrophil 6.4 K/uL (1.8-8.0); Basophils % 1.3 % (0-1.3); Eosinophils % 1.6 % (0-4.4); Hematocrit 46.4 % (36.0-45.0); Lymphocytes % 18.1 % (15.3-44.8); MPV 9.3 fL (7.6-11.3); Monocytes % 8.4 % (3.3-12.3); RBC Red Blood Cell Count 5.02 M/uL (3.86-4.86)
[2018-10-06 04:56] LABS: Magnesium 2.2 mg/dL (1.8-2.4); Potassium 3.7 mmol/L (3.5-5.1)
[2018-10-06] MEDS ORDERED: LEVOTHYROXINE SOD 0.025 MG TAB PO SCH (06:00)
[2018-10-06] MEDS: METOPROLOL TAR 25 MG TAB PO SCH ×2 (06:37→17:15)
[2018-10-06] MEDS: ASPIRIN EC 81 MG TAB PO SCH (08:29)
[2018-10-06] MEDS: MULTIVITAMINS,THERAPEUT 1 TAB PO SCH (08:30)
[2018-10-06] MEDS: ENOXAPARIN 80 MG/0.8 ML SQ SCH (08:31)
[2018-10-06] MEDS ORDERED: DOCUSATE NA 100 MG CAP PO SCH (09:00)
--- NOTE | 2018-10-06 11:22 | P.PN ---
Subjective Date of Service: 10/06/18 Primary Care Provider: Dr. Oden Chief Complaint: Fatigue Subjective: Other (Patient doing well but with some fatigue this morning.) Physical Examination - Vital Signs Temperature: 97.6 F Blood Pressure: 160/80 Pulse: 70 Respirations: 18 Pulse Ox (%): 96 - Physical Exam General: Alert, In no apparent distress, Oriented x3, Cooperative HEENT: Atraumatic Neck: Supple Respiratory: Clear to auscultation bilaterally, Normal air movement Cardiovascular: Irregular heart rate/rhythm (Atrial fibrillation, rate controlled) Gastrointestinal: Normal bowel sounds, Soft and benign, Non-distended Neurological: Normal speech, Normal strength at 5/5 x4 extr, Normal tone, Normal affect - Studies Microbiology Data (last 24 hrs): 10/04/18 16:45 Catheterized Urine [place] Count - Final <10,000 CFU/ML. 10/04/18 16:45 Catheterized Urine - Final Medications List Reviewed: Yes Assessment & Plan Discharge Plan: Other (Inpatient rehab) Plan to discharge in: 24 Hours Physician Review Additional Text: Impression: New onset atrial fibrillation complicated with acute CVA involving the right basal ganglia, right caudate and right temporal lobe with noted narrowing to the right middle cerebral artery Hypertension Hyperlipidemia Hypothyroidism Recent fall Plan: New onset atrial fibrillation complicated with acute CVA involving the right basal ganglia, right caudate and right temporal lobe with noted narrowing to the right middle cerebral artery: Patient doing well. Patient worked with physical therapy. Therapy recommends inpatient rehab to help with her fine motor skills as she is still at risk for falls. Patient continues on Lovenox at 1 milligram/kilogram subcu twice daily. This will be transition to oral chronic anti coagulation therapy at discharge. Will continue with metoprolol for rate control. Patient with new acute stroke likely embolic. Case discussed with Neurology. Will continue with physical therapy, occupational therapy, speech therapy. Anticipate inpatient rehab transfer once approved. Hypertension: Continue with rate control medication-metoprolol. Will monitor and adjust appropriately. Hyperlipidemia: Continue with Lipitor. Hypothyroidism: Continue home medication Recent fall: Physical/Occupational therapy to continue to work with patient. Await inpatient rehab approval. Time Spent Managing Pts Care (In Minutes): 55
[2018-10-06 15:14] VITALS: O2SAT 95
[2018-10-06] MEDS ORDERED: POTASSIUM CL SA 10 MEQ TAB PO ONE (17:00)
--- NOTE | 2018-10-06 17:28 | P.DS ---
Admission Date: 10/05/18 Discharge Date: 10/06/18 Primary Care Provider: Dr. Oden Disposition: TRANSFER TO INPATIENT REHAB Discharge Condition: GOOD Reason for Admission: Fatigue Consultations: Neurology-Dr. Terry Cardiology-Dr. Cortés/Dr. Oneil Procedures: MRI Brain: FINDINGS: Diffusion-weighted/ADC mapping demonstrate small areas of abnormal signal signal within the right temporal lobe. Additional abnormal signal is seen within the right basal ganglia and right caudate. All of these represent acute infarcts. The ventricles are normal in caliber. No abnormal enhancement within the brain is seen. An extra-axial fluid collection is not noted. Fluid within the sinuses/mastoids is not seen IMPRESSION: Acute infarcts involving the right basal ganglia, right caudate and right temporal lobe perhaps from emboli from the heart MRA Brain: COMPARISON: None. TECHNIQUE: Magnetic resonance angiogram was performed. 3D MIPS reconstruction performed FINDINGS: The right middle cerebral artery is narrowed 12 millimeters from its origin with the right internal carotid artery. The more peripheral branches are also narrowed. The anterior cerebral, left middle cerebral, posterior cerebral, distal internal carotid and basilar arteries do not demonstrate a significant stenosis. An aneurysm is not displayed. IMPRESSION: Narrowing of right middle cerebral artery MRA Neck: FINDINGS: Mild plaque is present within the common and internal carotid arteries. Moderate plaque is present within the proximal right external carotid artery. An aneurysm is not seen The vertebral arteries are codominant without visualization of an abnormality. IMPRESSION: Mild stenosis of the common and internal carotid arteries Moderate stenosis proximal right external carotid artery Carotid doppler: COMPARISON: None FINDINGS: The velocity of the right internal carotid artery equals 111 cm/sec. The right ICA/CCA ratio 1.3 The velocity of the left internal carotid artery equals 154 cm/sec. The left ICA /CCA ratio 1.4 Mild plaque is present within the common and internal carotid arteries. Moderate plaque is present within the right external carotid artery The vertebral arteries demonstrate antegrade flow IMPRESSION: Mild stenosis common and internal carotid arteries Moderate stenosis right external carotid artery ECHO: EF 66% LEFT VENTRICULAR WALL MOTION: NORMAL DOPPLER/COLOR FLOW: TRACE TRICUSPID AND MITRAL REGURGITATION. COMMENTS: TRACE TRICUSPID AND MITRAL REGURGITATION. AORTIC SCLEROSIS. NORMAL LEFT VENTRICULAR SIZE AND FUNCTION. NORMAL LEFT ATRIAL SIZE. Medical Problem List: New onset atrial fibrillation complicated with acute CVA involving the right basal ganglia, right caudate and right temporal lobe with noted narrowing to the right middle cerebral artery Hypertension Hyperlipidemia Hypothyroidism Recent fall Brief History of Present Illness: 82-year-old female presented to emergency room with fatigue. Patient also had a fall at home. This appeared to be mechanical. Patient came to the ER for further evaluation. Patient with underlying history of hypothyroidism. Patient denied any significant chest pain, palpitations or shortness of breath. In the ER patient was evaluated. Patient found to be in new onset atrial fibrillation but rate controlled. Hemoglobin 15.6, sodium 140, potassium 3.6. Chest x-ray unremarkable. Patient was admitted for further evaluation and treatment. When I saw the patient, she appeared stable. Daughter at bedside. Patient reports no prior history of palpitations. Patient stable at this time. Blood pressure slightly elevated. Family history of atrial fibrillation noted. Hospital Course: Patient presented with new onset atrial fibrillation complicated with acute CVA involving the right basal ganglia left, right caudate and right temporal lobe with noted narrowing to the right middle cerebral artery. Patient had reported some fatigue and fall recently. Patient evaluated by Cardiology and Neurology. Patient was started on rate control medication-metoprolol. She was also started on anti coagulation therapy. Patient was evaluated by a physical, occupational and speech therapy. Recommendation for inpatient rehab was accepted. Patient will be transferred to inpatient rehab. At discharge she will continue with Eliquis 2.5 mg 1 pill twice daily, Lipitor 40 mg daily, and metoprolol 25 mg 1 pill twice daily. Recommendation is for the patient to follow up with cardiology after rehab. Patient will need cardiac stress test in the near future. Patient will continue with therapy at inpatient rehab. Patient with underlying hypertension, hyperlipidemia, hypothyroidism. Patient will continue with above recommendations. Patient continue with her medication of levothyroxine 25 mcg daily. Patient will also continue with folic acid daily. Further adjustment in medication can be done by neurology at inpatient rehab. Vital Signs/Physical Exam: Temp Pulse Resp BP Pulse Ox 97.7 F 76 16 133/67 95 10/06/18 12:00 10/06/18 12:00 10/06/18 12:00 10/06/18 12:10/06/18 12:00 General: Alert, In no apparent distress, Oriented x3, Cooperative HEENT: Atraumatic Neck: Supple Respiratory: Clear to auscultation bilaterally, Normal air movement Cardiovascular: Irregular heart rate/rhythm (AFib rate controlled) Gastrointestinal: Normal bowel sounds, No tenderness, No masses, No rebound, No guarding Musculoskeletal: No erythema, No tenderness, No warmth Integumentary: No erythema, No warmth, No cyanosis Neurological: Normal speech, Normal strength at 5/5 x4 extr, Normal tone, Normal affect Laboratory Data at Discharge: WBC 9.1 K/uL (4.3-10.9) 10/06/18 04:21 Hgb 15.3 g/dL (12.0-15.0) H 10/06/18 04:21 Hct 46.4 % (36.0-45.0) H 10/06/18 04:21 Plt Count 194 K/uL (152-406) 10/06/18 04:21 PT 12.7 SECONDS (9.5-12.5) H 10/04/18 12:20 INR 1.08 10/04/18 12:20 Sodium 143 mmol/L (136-145) 10/06/18 04:21 Potassium 3.7 mmol/L (3.5-5.1) 10/06/18 04:21 BUN 20 mg/dL (7-18) H 10/06/18 04:21 Creatinine 0.93 mg/dL (0.55-1.3) 10/06/18 04:21 Glucose 92 mg/dL (74-106) 10/06/18 04:21 Magnesium 2.2 mg/dL (1.8-2.4) 10/06/18 04:21 Total Bilirubin 0.7 mg/dL (0.2-1.0) 10/04/18 12:20 AST 24 U/L (15-37) 10/04/18 12:20 ALT 25 U/L (12-78) 10/04/18 12:20 Alkaline Phosphatase 117 U/L (45-117) 10/04/18 12:20 Troponin I 0.02 ng/mL (0.0-0.045) 10/05/18 03:06 Triglycerides 95 mg/dL (<150) 10/05/18 03:06 Cholesterol 213 mg/dL (<200) H 10/05/18 03:06 HDL Cholesterol 65 mg/dL (40-60) H 10/05/18 03:06 Cholesterol/HDL Ratio 3.28 10/05/18 03:06 Home Medications: Levothyroxine Sodium 25 mg PO [id number] 10/04/18 Apixaban [Eliquis *] 2.5 mg PO BID #60 tablet 10/06/18 Atorvastatin Calcium [Lipitor] 40 mg PO BEDTIME #30 tab 10/06/18 Docusate [Colace Cap*] 100 mg PO DAILY #30 cap 10/06/18 Folic Acid 1 mg PO DAILY #30 tablet 10/06/18 Metoprolol Tartrate [Lopressor*] 25 mg PO BID 6AM 6PM #60 tab 10/06/18 New Medications: Apixaban [Eliquis *] 2.5 mg PO BID #60 tablet Atorvastatin Calcium [Lipitor] 40 mg PO BEDTIME #30 tab Docusate [Colace Cap*] 100 mg PO DAILY #30 cap Folic Acid 1 mg PO DAILY #30 tablet Metoprolol Tartrate [Lopressor*] 25 mg PO BID 6AM 6PM #60 tab Patient Discharge Instructions: 1. Patient to be transfered to inpatient rehab. 2. Patient presented with new onset atrial fibrillation complicated with acute CVA involving the right basal ganglia left, right caudate and right temporal lobe with noted narrowing to the right middle cerebral artery. Patient had reported some fatigue and fall recently. Patient evaluated by Cardiology and Neurology. Patient was started on rate control medication- metoprolol. She was also started on anti coagulation therapy. Patient was evaluated by a physical, occupational and speech therapy. Recommendation for inpatient rehab was accepted. Patient will be transferred to inpatient rehab. At discharge she will continue with Eliquis 2.5 mg 1 pill twice daily, Lipitor 40 mg daily, and metoprolol 25 mg 1 pill twice daily. Recommendation is for the patient to follow up with cardiology after rehab. Patient will need cardiac stress test in the near future. Patient will continue with therapy at inpatient rehab. 3. Patient with underlying hypertension, hyperlipidemia, hypothyroidism. Patient will continue with above recommendations. Patient continue with her medication of levothyroxine 25 mcg daily. Patient will also continue with folic acid daily. Further adjustment in medication can be done by neurology at inpatient rehab. Diet: AHA Activity: Fall precautions Time spent managing pt's care (in minutes): 55
[2018-10-06 18:02] LABS: Urine Appearance CLOUDY; Urine Bilirubin NEGATIVE (NEG); Urine Blood TRACE (NEG); Urine Color YELLOW; Urine Glucose NEGATIVE (NEG); Urine Protein NEGATIVE (NEG)
[2018-10-06 18:14] LABS: Urine Microscopic Reflex ORDER UMIC
[2018-10-06 18:18] LABS: Urine Bacteria >50 /HPF (<20); Urine Culture Reflex Order REFLEXED; Urine RBC <5 /HPF (NONE SEEN)
[2018-10-06] MEDS ORDERED: APIXABAN 2.5 MG TABLET PO SCH (21:00)
[2018-10-06 21:04] VITALS: BP 171/75; TEMP 98.2
--- NOTE | 2018-10-07 02:44 | CON ---
History Of Present Illness: An 82-year-old right-handed patient, who is admitted to [facility] on October 04, 2018 with fatigue. She also fell when she got out of bed, detected some le ft-sided weakness, but was not quite clear on the degree of that. She was brought back to the hospit al, and found to be in atrial fibrillation. She had a head CT scan done. The study identified no he morrhage. However, there was a vague low-density area identified in the right temporal lobe that was nonspecific. Subsequent brain MRI stroke protocol identified acute infarcts involving the right bas al ganglia, right caudate, and right temporal lobes, more likely from a cardioembolic source, most li vini the atrial fibrillation. She was put on treatment dosage of Lovenox mg/kg, and she had the rest of her stroke workup including an echocardiogram showing ejection fraction 66% with trace tricuspid and mitral regurgitation, aortic sclerosis, but no stenosis mentioned, and normal left ventricular si ze and function, and normal left atrial size. A carotid artery ultrasound showed moderate stenosis i n the common and internal carotid arteries, and moderate stenosis in the right external carotid arter y. She had a modified barium swallow study, which showed laryngeal penetration, which cleared with 2 consecutive swallows of thin liquid. There was [id number] esophageal stasis on retropulsion w ith regular solids, barium tablets, and thin liquid. However, she was able to clear those with repea maggy attempts. With ambulation with the physical therapist, she did tolerate her gait, which improved in yuridia, stride length improved, and steadiness. However, she still required contact guard norma miranda when she ambulated with no assistive device for about 500 feet, but she again had issues with h er balance and coordination. She was determined to be a good candidate for inpatient rehabilitation given the acuteness of her stroke, and need to improve, so that she can be independent at home. Past Medical History: As indicated, including hypothyroidism, history of breast cancer. Past Surgical History: Bilateral mastectomy. Allergies: PENICILLIN. Family History: There is atrial fibrillation in mother and sister. Social History: No alcohol, tobacco use, but she does use caffeinated beverages. Review of Systems: As indicated, she notes the weakness, incoordination, tendency to fall to the left, some mild difficu lty with her articulation, and mild swallowing difficulties. Physical Examination: Vital Signs: Blood pressure 178/76, pulse 75, respiratory rate 16, temperature 97.9, oxygen saturati on 96%. The patient is resting comfortably in bed. Her son is at bedside. She is in no acute distr ess. She is normocephalic, atraumatic. Sclerae anicteric. Oropharynx is moist and pink. Neck: Supple. Chest: Clear. Heart: Regular. Extremities: Show no significant cyanosis, clubbing, or edema. Neurological: She is alert and oriented to situation, place, and person. She has mild difficulty wi th labial, lingual, and guttural sounds. Otherwise, her cranial nerve examination showed no clear de ficits except potential subtle decrease of the left nasolabial fold. Motor Examination: She has a s ubtle weakness noted in the left upper and lower extremity around 5-/5. Otherwise, on the right side , she is 5/5 in upper and lower extremities. Sensory Exam: Intact in the upper and lower extremitie s except for slight decrease on the left compared to right. Her reflexes are symmetric. Her gait sh owed a mild tendency to drift off to the left side. Laboratory Studies: White blood cell count 9.1, hemoglobin 15.3, hematocrit 46.4. INR 1.08. Chemis tries; sodium 143, potassium 3.7, chloride 109, carbon dioxide 20, BUN 20, creatinine 0.93. Her HDL cholesterol is 65. Her total cholesterol is 213, TSH 4.94. Assessment: Ms. Bass is an 82-year-old patient with new onset atrial fibrillation and stroke, like ly cardioembolic in source, multiple on the right side including the caudate temporal lobe and basal ganglia. She has some incoordination, some gait instability, tendency to fall to the left, and will benefit from acute inpatient rehabilitation. She should have full anticoagulation, and also aggressi ve management of cholesterol. She has slightly elevated total cholesterol of 213, LDL cholesterol 12 9, HDL cholesterol is 65. She was told of the importance of changing diet, addressing hydration, and her other risk factors for stroke. Once she is complete with inpatient rehabilitation, follow up in Dr. Terry's clinic 1 month later. FLAKITA/AYDIN Voice ID: [id number] Report ID: [id number]
== END 2018-10-06 21:25 | DRG 308 ==
LOC: ER 11:35 → ERHOLD 15:05 → 2ND 17:21 → OBSVTOIN 10-05 10:29
PROVIDERS: ADMIT Family Medicine; ATTEND Family Medicine
DX: I48.91 Unspecified atrial fibrillation (principal); I63.9 Cerebral infarction, unspecified; E03.9 Hypothyroidism, unspecified; Z91.81 History of falling; Z88.0 Allergy status to penicillin; Z85.3 Personal history of malignant neoplasm of breast; Z90.13 Acquired absence of bilateral breasts and nipples; I10 Essential (primary) hypertension; I65.23 Occlusion and stenosis of bilateral carotid arteries; E78.5 Hyperlipidemia, unspecified; R27.8 Other lack of coordination; R26.0 Ataxic gait
CPT/HCPCS: 36415; 51702; 70450; 70544; 70549; 70553; 71045; 74230; 80048; 80061; 80076; 81003; 81015; 82550; 82553; 83735; 83880; 84439; 84443; 84484; 85025; 85610; 87077; 87086; 87088; 87186; 92611; 93005; 93306; 93880; 96372; 97112; 97116; 97163; 97165; 99285; A9577; G0378; J1650

== ENCOUNTER 2018-10-06 12:48 | Inpatient (IN) | payer OTHER ==
--- NOTE | 2018-10-06 17:02 | R.PREADM ---
SCREENING DATE AND TIME 10/06/2018 15:45 (PATTERN CHAIN MAKER SUPERVISOR) ANTICIPATED REHAB ADMISSION DATE 10/08/2018 REFERRING FACILITY [facility] REFERRAL DATE AND TIME 10/06/2018 15:45 (PATTERN CHAIN MAKER SUPERVISOR) REFERRAL ROOM# 221 ACUTE ADMIT DATE 10/05/2018 Previous Rehabilitation(s): No. ACUTE PHYSICAL INTEGRATION PRACTITIONER/DC ROTARY DRILLER HELPER Elba Mejias REFERRING PHYSICIAN Codey Chisholm REHAB FACILITY [facility] CLINICAL LIAISON Ankush Crabtree PHYSICIAN REVIEWER Dr. Jose Terry M.D. MR# [id number] NAME MARIELY HUI ADDRESS [address] [facility] PHONE [facility] [id number] DATE OF 1935 AGE 82 SSN# [id number] GENDER female MARITAL STATUS RACE white ADMIT FROM 02 - [facility] PRE-HOSPITAL LIVING SETTING 01 - Home (private home/apt. board/care, assisted living, senior living, transitional living) HOME TYPE AND DETAILS Type of home: single family house # of levels in the residence: 1 # of steps within the residence: 0 # of steps to enter the residence: 1 PRE-HOSPITAL LIVING WITH Alone FAMILY SUPPORT Yes PRIMARY FAMILY CONTACT NAME Salome Hui PRIMARY FAMILY CONTACT PHONE PRIMARY FAMILY CONTACT RELATIONSHIP Daughter PHONE PRIMARY FAMILY CONTACT ON ADM.? no IS PRIMARY FAMILY CONTACT AUTH. REP.? no 1ST EMERGENCY CONTACT Salome Hui 1ST CONTACT PHONE 1ST CONTACT RELATIONSHIP Daughter PHONE 1ST CONTACT ON ADM. no IS 1ST CONTACT AUTH. REP.? no PHONE 2ND CONTACT ON ADM.? no PATIENT EMPLOYMENT STATUS Retired (for age) PATIENT EMPLOYER No Employer PAYOR INFORMATION: 1ST PAYOR NAME MEDICARE 1ST PAYOR PHONE [phone] 1ST PAYOR INJURY/ILLNESS DUE TO ACCIDENT? No ANOTHER GREEN PARTY RESPONSIBLE? No PRIMARY REHAB/ACUTE DIAGNOSIS: Right Basal Ganglia Acute Infarct ONSET DATE 10/05/2018 REHAB IMPAIRMENT CATEGORY (ALFREDO): 01 Stroke (STR) MEETS 60% rule AFFECTED EXTREMITIES: LLE, and LUE PRIMARY DIAGNOSIS-RELATED SURGERIES: N/A COMORBID REHAB/ACUTE DIAGNOSES: - N/A Hypothyroidism Atrial Fibrillation Breast Cancer INTERVENTIONS: - Atrial Fibrillation Anticoagulation Medications VS RISK FOR COMPLICATIONS: - Atrial Fibrillation CVA Heart failure Limb embolus SUMMARY OF ACUTE HOSPITALIZATION: Pt. is a 82 yo Right-handed white female. On 10/05/2018 Pt. presented to [facility] with sudden onset of left-side weakne ss. On 10/05/2018 she was admitted to [facility] with diagnosis Right Basal Ganglia Acute Infarct. Her impairment category is Stroke 01 - Left Body (Right Brain) (01.1). Pre-morbidly, Pt. was independent/mod-I in Self-Care, Sphincter Control, Transfers Control, Locomotio n, Communication, and Social Cognition; and she had good Sphincter Control. Currently, she has deficits of Locomotion, Communication, Social Cognition, Endurance, Balance, Safet y Awareness, Transfers Control, and Self-Care. Pt. is now referred to [facility] for acute in-patient rehabilitation in order to maximize patient's functional independence in activities of daily living, strength, ROM, and mobi lity. Patient has realistic goal of being discharged at assistance level 6-Dharmesh to reside at Home with Fam roberto/Relatives. Mariely Hui is an 82 year old female that lives in a single clarissa home with 1 step to enter. Patient is independent with ADL who does laundry, cooking and still driving. On 10/05/2018, she fell at home and was admitted to [facility] and treated. She is now medically stable but in need of 24-hour nursing, doctor supervision and oversite while receiving acti ve and ongoing intensive PT, OT expected to participate in 3hours of therapy a day/15 hours per week and receive care with an intensive interdisciplinary approach. PAST MEDICAL HISTORY Atrial Fibrillation Breast Cancer Hypothyroidism PAST SURGICAL HISTORY: Bilateral Breast Mastectomy MEDICATION ALLERGIES: Penicillin ENVIRONMENTAL ALLERGIES: None Known - Substance Allergies None Known - Other Allergies None Known CODE STATUS: Full code WEIGHT/HEIGHT/BMI: WEIGHT 180 lbs HEIGHT 5' 4" BMI 30.9 DIET: - Diet Type Regular - Diet - Solid Texture Regular - Diet - Liquid Texture Regular - Tube Feed N/A REVIEW OF SYSTEMS: - Gen Alert and awake Lying in bed No apparent distress Oriented to: person, time, and place - Vital Signs Temperature: 97.7 F SBP/DBP: 133/67 Pulse: 76 Resp: 16 Vital signs stable, afebrile - CVS RRR VITAL SIGNS Temperature: 97.7 F SBP/DBP: 133/67 Pulse: 76 Resp: 16 Vital signs stable, afebrile CURRENT SPHINCTER CONTROL: Pre-hospital bladder status: continent # of bladder accidents in the last 7 days prior to screenin Pre-hospital bowel status: continent # of bowel accidents in the last 7 days prior to screenin Last Bowel Movement Date: DETAILED CURRENT FUNCTIONAL STATUS: - Bladder accident frequency: Ind - No accidents in the past 7 days - Bowel accident frequency: Ind - No accidents in the past 7 days - Walking score based on distance walked: 3(>=150ft) - Wheelchair score based on distance traveled: 0(N/A) FUNCTIONAL STATUS: - Self-Care A. Eating Ind Ind B. Grooming Ind Ind C. Bathing Ind sup D. Dressing - Upper Ind Terrance E. Dressing - Lower Ind modA F. Toileting Ind modA - Sphincter Control G: Bladder control Ind Ind H: Bowel control Ind Ind - Transfers Control I. Bed/Chair/Wheelchair Ind Dharmesh J. Toilet Ind Terrance K. Tub/Shower Ind ADNO - Locomotion L. Walk/Wheelchair (C) Ind CGA L. Walk/Wheelchair (W) Ind CGA M. Stairs Ind ADNO - Communication N. Comprehension (B) Ind sup O. Expression (B) Ind sup - Social Cognition P. Social Interaction Ind sup Q. Problem Solving Ind sup R. Memory Ind sup - Endurance Fair - Balance Fair - Safety Awareness Fair CURRENT FUNC. DEFICITS: Locomotion, Communication, Social Cognition, Endurance, Balance, Safety Awareness, Transfers Control, and Self-Care THERAPY NOTES FROM ACUTE CARE: Attached. SPECIAL NEEDS: - Safety Concerns Skin breakdown precautions needed due to skin breakdown risk PATIENT NEEDS ACTIVE AND ONGOING THERAPEUTIC INTERVENTION OF MULTIPLE THERAPY DISCIPLINES, INCLUDING: - Occupational Therapy Evaluate and Treat. Visual Perceptual Training. Cognitive Retraining. - Speech Therapy Cognitive Training. Memory Strategies. Speech Intelligibility Training. Expressive Language Skills. R eceptive Language Skills. - Physical Therapy Evaluate and Treat. PATIENT NEEDS CLOSE MEDICAL SUPERVISION BY A REHABILITATION PHYSICIAN FOR: Bowel and Bladder Management Coordination of Treatment Team Medical and Co-Morbidity Management DVT Management Pain Management PATIENT REQUIRES 24X7 REHAB NURSING FOR MEDICAL AND FUNCTIONAL MGT. OF THE FOLLOWING DEFICITS: ADL's Ambulation Bowel and Bladder Management Cognition Communication Disease Management Medication Management Patient/Family Education Providing Safe Environment Transfers PATIENT REQUIRES INTENSIVE, COORDINATED INTERDISCIPLINARY APPROACH TO REHAB: Arranging Home Equipment/Services Discharge Planning Family Intervention/Training Title I Director/Case Management PATIENT REHAB POTENTIAL: Expected level of measurable improvement will be of a practical value to patient's functional capacit y or adaptations to impairments Has a viable Discharge Plan Medically appropriate; condition is sufficiently stable to participate in intensive rehab program Patient is able and expected to receive 3 hours of individualized therapy daily on at least 5 of ever y 7 days Patient's prognosis for significant practical improvement within a reasonable period of time appears Good DISCHARGE PLAN: - Estimated Length of Stay (days) 17. - Consensus on plan Discharge plan has been discussed with primary caregiver. Patient/Family is in agreement with the julianne n. Primary caregiver is in agreement with the plan. - Patient/Family Goals Return home with assistance. - Planned Living Setting Upon Discharge Home, to live with Family/Relatives. RECOMMENDED CARE LEVEL: IRF RECOMMENDATION DETAILS: Recommended Admission to Comprehensive Rehabilitation Program to Increase Functional [place] SCREENER'S COMPLETENESS CONFIRMATION: - Screening Confirmation The patient data collection on this preadmission screening form is finished PHYSICIANS REVIEW AND ADMISSION DETERMINATION Admit - Based on my review of the Pre-Admission Screening results, in my medical judgment and experie nce, I concur with the findings and recommend admission to [facility], as this patient requires an IRF level of care. SIGNATURE PANEL: Clinical Liaison - [electronically] signed by Ankush Crabtree on 10/06/2018 at 16:36 (PATTERN CHAIN MAKER SUPERVISOR) Physician Reviewer - [electronically] signed by Dr. Jose Terry M.D. on 10/06/2018 at 17:01 (PATTERN CHAIN MAKER SUPERVISOR )
[2018-10-06] MEDS ORDERED: DOCUSATE NA 100 MG CAP PO PRN (22:39)
[2018-10-06] MEDS ORDERED: LACTULOSE 20 GM/30 ML UCUP PO PRN (22:44)
[2018-10-06] MEDS ORDERED: ACETAMINOPHEN 500 MG TAB PO PRN (22:45)
[2018-10-07 00:31] LABS: Urine Appearance CLOUDY; Urine Bilirubin NEGATIVE (NEG); Urine Blood 3+ (NEG); Urine Color YELLOW; Urine Glucose NEGATIVE (NEG); Urine Protein NEGATIVE (NEG)
[2018-10-07 01:36] LABS: Urine Bacteria >50 /HPF (<20); Urine Culture Reflex Order NOT NEEDED; Urine RBC <5 /HPF (NONE SEEN)
[2018-10-07] MEDS: METOPROLOL TAR 25 MG TAB PO SCH ×2 (05:20→17:35)
[2018-10-07 06:55] LABS: Absolute Lymphocytes (CBC) 1.4 K/uL (0.7-4.9); Absolute Monocytes 0.9 K/uL (0.1-1.3); Absolute Neutrophil 8.1 K/uL (1.8-8.0); Basophils % 0.9 % (0-1.3); Eosinophils % 0.8 % (0-4.4); Hematocrit 45.3 % (36.0-45.0); Lymphocytes % 13.1 % (15.3-44.8); MPV 9.4 fL (7.6-11.3); Monocytes % 8.2 % (3.3-12.3); RBC Red Blood Cell Count 4.92 M/uL (3.86-4.86)
[2018-10-07 07:06] LABS: Albumin 3.2 g/dL (3.4-5.0); Potassium 3.9 mmol/L (3.5-5.1); Prealbumin 13.9 mg/dL (20-40)
[2018-10-07] MEDS ORDERED: PNEUMOCOCCAL VACCINE 0.5 ML IMVAC ONE (08:00)
[2018-10-07] MEDS: ASPIRIN EC 81 MG TAB PO SCH (08:27)
[2018-10-07] MEDS: LEVOTHYROXINE SOD 0.025 MG TAB PO SCH (08:27)
[2018-10-07] MEDS: FOLIC ACID 1 MG TABLET PO SCH (08:27)
[2018-10-07] MEDS: MULTIVITAMINS,THERAPEUT 1 TAB PO SCH (08:27)
[2018-10-07] MEDS: cloNIDine HCl 0.1 MG TAB PO SCH ×2 (08:27→20:07)
[2018-10-07] MEDS: APIXABAN 2.5 MG TABLET PO SCH ×2 (08:28→20:07)
--- NOTE | 2018-10-07 09:36 | FAST ---
ENCOUNTER DATE AND TIME: 10/07/2018 08:00 (COMPLAINT OPERATOR) NAME NEL HUI DATE OF : 1935 DATE OF ADMISSION: 10/06/2018 21:26 (COMPLAINT OPERATOR) PHONE: AGE: 82 SSN# [id number] GENDER: Female ENCOUNTER PHYSICIAN: Dr. Jose Terry M.D. ADMISSION DIAGNOSIS: - Stroke 01 - Left Body (Right Brain) (01.1) Right Basal Ganglia Acute Infarct. EATING: Activity did not occur on this shift EATING - SCORE: 0-UNK GROOMING: Activity did not occur on this shift GROOMING - SCORE: 0-UNK BATHING: Activity did not occur on this shift BATHING - SCORE: 0-UNK DRESSING - UPPER BODY: Activity did not occur on this shift Patient is not dressing in public clothing ARTICLES SCORE Total number of steps: 0 DRESSING - UPPER BODY - SCORE: 0-UNK DRESSING - LOWER BODY: Activity did not occur on this shift Patient is not dressing in public clothing ARTICLES SCORE Total number of steps: 0 DRESSING - LOWER BODY - SCORE: 0-UNK TOILETING: Activity did not occur on this shift TOILETING - SCORE: 0-UNK BLADDER MANAGEMENT: Activity did not occur on this shift BLADDER MANAGEMENT - SCORE: 7-IND BOWEL MANAGEMENT: Activity did not occur on this shift BOWEL MANAGEMENT - SCORE: 7-IND TRANSFERS: BED, CHAIR, WHEELCHAIR: TRANSFERS: BED, CHAIR, WHEELCHAIR - STEP 1: Does the patient require assistance of a person or device, or need extra time with bed, chair, or whe elchair transfers? Yes. TRANSFERS: BED, CHAIR, WHEELCHAIR - STEP 2: Does the patient require the assistance of a helper? No. Patient only requires an assistive device fo r bed, chair, wheelchair transfers such as a sliding board, grab bar, or brace, OR s/he takes more th an reasonable time, OR there is a safety concern when s/he performs the transfers TRANSFERS: BED, CHAIR, WHEELCHAIR - SCORE: 6-JADE TRANSFERS: TOILET: TRANSFERS: TOILET - STEP 1: Does the patient require the assistance of a person or device, or need extra time with toilet transfe rs? Yes. TRANSFERS: TOILET - STEP 2: Does the patient require the assistance of a helper? No. Patient only requires an assistive device liu ch as a grab bar or special seat, OR s/he takes more than reasonable time to perform toilet transfers , OR there is a safety concern when s/he performs toilet transfers. TRANSFERS: TOILET - SCORE: 6-JADE TRANSFERS: SHOWER: Activity did not occur on this shift TRANSFERS: SHOWER - SCORE: 0-UNK TRANSFERS: TUB: Activity did not occur on this shift TRANSFERS: TUB - SCORE: 0-UNK LOCOMOTION: WALK: LOCOMOTION: WALK - STEP 1: Does the patient need help from a person or device, or need extra time to walk 150 feet? Yes. LOCOMOTION: WALK - STEP 2: How much assistance does the patient require to walk a minimum of 150 feet? Only incidental help such as contact guarding or steadying LOCOMOTION: WALK - SCORE: 4-MIN LOCOMOTION: WHEELCHAIR: Activity did not occur on this shift LOCOMOTION: WHEELCHAIR - SCORE: 0-UNK LOCOMOTION: STAIRS: LOCOMOTION: STAIRS - STEP 1: Does the patient need help to go up and down 12 to 14 stairs? Yes. LOCOMOTION: STAIRS - STEP 2: How much assistance does the patient need from the helper to go a minimum of 12 to 14 stairs? Only in cidental help such as contact guarding or steadying LOCOMOTION: STAIRS - SCORE: 4-MIN COMPREHENSION: COMPREHENSION - SCORE: 0-UNK EXPRESSION EXPRESSION - SCORE: 0-UNK SOCIAL INTERACTION: SOCIAL INTERACTION - SCORE: 0-UNK PROBLEM SOLVING: PROBLEM SOLVING - SCORE: 0-UNK MEMORY: MEMORY - SCORE: 0-UNK SIGNATURE PANEL: The following modified sections: Transfers: Bed, Chair, Wheelchair - Score, Transfers: Toilet - Score , Locomotion: Walk - Score, Locomotion: Wheelchair - Score, Locomotion: Stairs - Score were [[email or web address] [email or web address]] signed by Santos Tam on Sat Oct 07 2018 09:35:45 GMT-0600 (Central Standard Time)
--- NOTE | 2018-10-07 11:20 | FAST ---
SHIFT START DATE/TIME: 10/07/2018 07:00 (SOLAR SALES REPRESENTATIVE AND ASSESSOR) SHIFT END DATE/TIME: 10/07/2018 19:00 (SOLAR SALES REPRESENTATIVE AND ASSESSOR) NAME NEL HUI DATE OF : 1935 DATE OF ADMISSION: 10/06/2018 21:26 (SOLAR SALES REPRESENTATIVE AND ASSESSOR) PHONE: AGE: 82 SSN# [id number] GENDER: Female ENCOUNTER PHYSICIAN: Dr. Jose Terry M.D. ADMISSION DIAGNOSIS: - Stroke 01 - Left Body (Right Brain) (01.1) Right Basal Ganglia Acute Infarct. EATING: EATING - STEP 1: Does the patient require the assistance of a person or device, or need extra time when eating? Yes. EATING - STEP 2: Does the patient require the assistance of a helper? No, patient only requires an assistive device, O R s/he takes more than reasonable time to eat, OR there is a safety concern, OR s/he requires modifie d food consistency EATING - SCORE: 6-JADE GROOMING: Comb/brush hair Oral care Patient applied make-up Wash, rinse, and dry face Wash, rinse, and dry hands GROOMING - STEP 1: Does the patient require the assistance of a person or device, or need extra time when grooming? Yes. GROOMING - STEP 2: Does the patient require the assistance of a helper? No. The patient only requires an assistive devic e, OR takes more than reasonable time to groom, OR there is a concern for safety as the patient groom s GROOMING - SCORE: 6-JADE BATHING: Activity did not occur on this shift BATHING - SCORE: 0-UNK DRESSING - UPPER BODY: Bra (three steps) Sweater (four steps) T-shirt/pullover shirt (four steps) ARTICLES SCORE Total number of steps: 11 DRESSING - UPPER BODY - STEP 1: Does the patient require help from a person or device, or need extra time when dressing above the jose st? Yes. DRESSING - UPPER BODY - STEP 2: Does the patient require the assistance of a helper? Yes. DRESSING - UPPER BODY - STEP 3: Does the helper touch the patient while dressing? No. DRESSING - UPPER BODY - SCORE: 5-SUP DRESSING - LOWER BODY: ARTICLES SCORE Total number of steps: 12 DRESSING - LOWER BODY - STEP 1: Does the patient require help from a person or device, or need extra time when dressing below the jose st? Yes. DRESSING - LOWER BODY - STEP 2: Does the patient require the assistance of a helper? Yes. DRESSING - LOWER BODY - STEP 3: Does the helper touch the patient while dressing? No. DRESSING - LOWER BODY - SCORE: 5-SUP TOILETING: TOILETING - STEP 1: Does the patient require the assistance of a person or device, or need extra time with toileting? Yes . TOILETING - STEP 2: Does the patient require the assistance of a helper? Yes. TOILETING - STEP 3: How much assistance does the patient require from the helper? Only supervision TOILETING - SCORE: 5-SUP BLADDER MANAGEMENT: BLADDER MANAGEMENT - STEP 1: Does the patient control the bladder completely and intentionally without equipment or devices or med ications, and is always continent? No. BLADDER MANAGEMENT - STEP 2: Does the patient require the assistance of a helper? No, patient requires and independently uses an a ssistive device, such as a urinal, bedpan, bedside commode, catheter, absorbent pad, or collecting de vice BLADDER MANAGEMENT - SCORE: 6-JADE BOWEL MANAGEMENT: Activity did not occur on this shift BOWEL MANAGEMENT - SCORE: 7-IND TRANSFERS: BED, CHAIR, WHEELCHAIR: TRANSFERS: BED, CHAIR, WHEELCHAIR - STEP 1: Does the patient require assistance of a person or device, or need extra time with bed, chair, or whe elchair transfers? Yes. TRANSFERS: BED, CHAIR, WHEELCHAIR - STEP 2: Does the patient require the assistance of a helper? Yes. TRANSFERS: BED, CHAIR, WHEELCHAIR - STEP 3: How much assistance does the patient require from the helper? Steadying/guiding assistance TRANSFERS: BED, CHAIR, WHEELCHAIR - SCORE: 4-MIN TRANSFERS: TOILET: TRANSFERS: TOILET - STEP 1: Does the patient require the assistance of a person or device, or need extra time with toilet transfe rs? Yes. TRANSFERS: TOILET - STEP 2: Does the patient require the assistance of a helper? Yes. TRANSFERS: TOILET - STEP 3: How much assistance does the patient require from the helper? Patient performs half or more of the tr ansferring tasks TRANSFERS: TOILET - STEP 4: Does the patient need only incidental help such as contact guard or steadying during toilet transfer? Yes. TRANSFERS: TOILET - SCORE: 4-MIN TRANSFERS: SHOWER: Activity did not occur on this shift TRANSFERS: SHOWER - SCORE: 0-UNK TRANSFERS: TUB: Activity did not occur on this shift TRANSFERS: TUB - SCORE: 0-UNK LOCOMOTION: WALK: Activity did not occur on this shift LOCOMOTION: WALK - SCORE: 0-UNK LOCOMOTION: WHEELCHAIR: Activity did not occur on this shift LOCOMOTION: WHEELCHAIR - SCORE: 0-UNK COMPREHENSION: COMPREHENSION: TYPE: Both COMPREHENSION - STEP 1: Does the patient require help from a person or device, or need extra time to understand complex and a bstract ideas (such as current events, finances, discharge planning, medical issues, relationships, e tc)? Yes. COMPREHENSION - STEP 2: Does the patient require help to understand questions or statements about basic needs or ideas (such as hunger, thirst, sleep, safety, daily schedule, room location, or discomfort) half or more of the t cassandra? No. COMPREHENSION - STEP 3: How often does the patient need help to understand directions and conversation about basic needs? Les s than 10% of the time COMPREHENSION - SCORE: 5-SUP EXPRESSION EXPRESSION: TYPE: Both EXPRESSION - STEP 1: Does the patient require help from a person or device, or need extra time expressing complex and abst ract ideas (such as current events, finances, discharge planning, medical issues, relationships, etc) ? Yes. EXPRESSION - STEP 2: Does the patient require help to express basic necessities or ideas (such as hunger, thirst, sleep, s afety, daily schedule, room location, or discomfort) half or more of the time? No. EXPRESSION - STEP 3: How often does the patient need help to express directions and conversation about basic needs? Less t mcelroy 10% of the time EXPRESSION - SCORE: 5-SUP SOCIAL INTERACTION: SOCIAL INTERACTION - STEP 1: Does the patient require a helper to interact with others in social and therapeutic situations? Yes. SOCIAL INTERACTION - STEP 2: Does the patient interact appropriately half or more of the time? Yes. SOCIAL INTERACTION - STEP 3: How often does the patient need help to interact appropriately? Less than 10% of the time SOCIAL INTERACTION - SCORE: 5-SUP PROBLEM SOLVING: PROBLEM SOLVING - STEP 1: Does the patient need help from a person or device, or need extra time to solve complex problems such as managing a checking account or confronting interpersonal problems? Yes. PROBLEM SOLVING - STEP 2: Does the patient solve basic routine problems half or more of the time? Yes. PROBLEM SOLVING - STEP 3: How often does the patient need help to solve basic routine problems? Less than 10% of the time PROBLEM SOLVING - SCORE: 5-SUP MEMORY: MEMORY - STEP 1: Does the patient need help from a person or device, or need extra time to remember frequently encount ered people, daily routines, and executing requests? Yes. MEMORY - STEP 2: How often does the patient need help to remember frequently encountered people, daily routines, and e xecuting requests? Less than 10% of the time MEMORY - SCORE: 5-SUP SIGNATURE PANEL: The following modified sections: Eating - Score, Grooming - Score, Bathing - Score, Dressing - Upper Body - Score, Dressing - Lower Body - Score, Toileting - Score, Bladder Management - Score, Bowel Man agement - Score, Transfers: Bed, Chair, Wheelchair - Score, Transfers: Toilet - Score, Transfers: Mary wer - Score, Transfers: Tub - Score, Locomotion: Walk - Score, Locomotion: Wheelchair - Score, Compre hension - Score, Expression - Score, Social Interaction - Score, Problem Solving - Score, Memory - Sc ore were [electronically] signed by Shaheen Wills on Sat Oct 07 2018 11:19:25 GMT-0600 (Central Standard Time)
--- NOTE | 2018-10-07 17:23 | FAST ---
ENCOUNTER DATE AND TIME: 10/07/2018 08:00 (ADULT DAYCARE COORDINATOR) NAME NEL HUI DATE OF : 1935 DATE OF ADMISSION: 10/06/2018 21:26 (ADULT DAYCARE COORDINATOR) PHONE: AGE: 82 SSN# [id number] GENDER: Female ENCOUNTER PHYSICIAN: Dr. Jose Terry M.D. ADMISSION DIAGNOSIS: - Stroke 01 - Left Body (Right Brain) (01.1) Right Basal Ganglia Acute Infarct. EATING: Activity did not occur on this shift EATING - SCORE: 0-UNK GROOMING: Comb/brush hair Wash, rinse, and dry face Wash, rinse, and dry hands GROOMING - STEP 1: Does the patient require the assistance of a person or device, or need extra time when grooming? Yes. GROOMING - STEP 2: Does the patient require the assistance of a helper? Yes. GROOMING - STEP 3: How much assistance does the patient require from the helper? Only prior equipment preparation/set up from the helper GROOMING - SCORE: 5-SUP BATHING: Abdomen Buttocks Chest Left arm Left lower leg and foot Left upper leg Perineal area Right arm Right lower leg and foot Right upper leg BATHING - STEP 1: Does the patient require the assistance of a person or device, or need extra time when bathing? Yes. BATHING - STEP 2: Does the patient require the assistance of a helper? Yes. BATHING - STEP 3: How much assistance does the patient require from the helper? Only incidental help such as placement of a wash cloth in his/her hand a few times as s/he bathes OR help to bathe just one or two areas of the body BATHING - SCORE: 4-MIN DRESSING - UPPER BODY: Sweater (four steps) T-shirt/pullover shirt (four steps) ARTICLES SCORE Total number of steps: 8 DRESSING - UPPER BODY - STEP 1: Does the patient require help from a person or device, or need extra time when dressing above the jose st? Yes. DRESSING - UPPER BODY - STEP 2: Does the patient require the assistance of a helper? Yes. DRESSING - UPPER BODY - STEP 3: Does the helper touch the patient while dressing? No. DRESSING - UPPER BODY - SCORE: 5-SUP DRESSING - LOWER BODY: Elastic waist pants (three steps) Sock - Left foot (one step) Sock - Right foot (one step) Tied or buckled shoe - Left foot (two steps) Tied or buckled shoe - Right foot (two steps) Underwear (three steps) ARTICLES SCORE Total number of steps: 12 DRESSING - LOWER BODY - STEP 1: Does the patient require help from a person or device, or need extra time when dressing below the jose st? Yes. DRESSING - LOWER BODY - STEP 2: Does the patient require the assistance of a helper? Yes. DRESSING - LOWER BODY - STEP 3: Does the helper touch the patient while dressing? Yes. DRESSING - LOWER BODY - STEP 4: How many of the total steps does the patient complete on his/her own? 10 DRESSING - LOWER BODY - SCORE: 4-MIN DRESSING - LOWER BODY - COMMENTS: CGA to pull cothing over hips TOILETING: Activity did not occur on this shift TOILETING - SCORE: 0-UNK BLADDER MANAGEMENT: Activity did not occur on this shift BLADDER MANAGEMENT - SCORE: 7-IND BOWEL MANAGEMENT: Activity did not occur on this shift BOWEL MANAGEMENT - SCORE: 7-IND TRANSFERS: BED, CHAIR, WHEELCHAIR: Activity did not occur on this shift TRANSFERS: BED, CHAIR, WHEELCHAIR - SCORE: 0-UNK TRANSFERS: TOILET: TRANSFERS: TOILET - STEP 1: Does the patient require the assistance of a person or device, or need extra time with toilet transfe rs? Yes. TRANSFERS: TOILET - STEP 2: Does the patient require the assistance of a helper? Yes. TRANSFERS: TOILET - STEP 3: How much assistance does the patient require from the helper? Patient performs half or more of the tr ansferring tasks TRANSFERS: TOILET - STEP 4: Does the patient need only incidental help such as contact guard or steadying during toilet transfer? Yes. TRANSFERS: TOILET - SCORE: 4-MIN TRANSFERS: SHOWER: TRANSFERS: SHOWER - STEP 1: Does the patient require the assistance of a person or device, or need extra time with shower transfe rs? Yes. TRANSFERS: SHOWER - STEP 2: Does the patient require the assistance of a helper? Yes. TRANSFERS: SHOWER - STEP 3: How much assistance does the patient require from the helper? Only incidental help such as contact gu arding or steadying during shower transfers, or help to lift one leg into the shower TRANSFERS: SHOWER - SCORE: 4-MIN TRANSFERS: TUB: Activity did not occur on this shift TRANSFERS: TUB - SCORE: 0-UNK LOCOMOTION: WALK: Activity did not occur on this shift LOCOMOTION: WALK - SCORE: 0-UNK LOCOMOTION: WHEELCHAIR: Activity did not occur on this shift LOCOMOTION: WHEELCHAIR - SCORE: 0-UNK LOCOMOTION: STAIRS: Activity did not occur on this shift LOCOMOTION: STAIRS - SCORE: 0-UNK COMPREHENSION: COMPREHENSION: TYPE: Visual COMPREHENSION - STEP 1: Does the patient require help from a person or device, or need extra time to understand complex and a bstract ideas (such as current events, finances, discharge planning, medical issues, relationships, e tc)? No. COMPREHENSION - STEP 2: Does the patient need extra time, require an assistive device (such as glasses for visual comprehensi on or a hearing aid for auditory comprehension) or does s/he have mild difficulty understanding compl ex and abstract information? Yes. COMPREHENSION - SCORE: 6-JADE EXPRESSION EXPRESSION: TYPE: Vocal EXPRESSION - STEP 1: Does the patient require help from a person or device, or need extra time expressing complex and abst ract ideas (such as current events, finances, discharge planning, medical issues, relationships, etc) ? No. EXPRESSION - STEP 2: Does the patient need extra time, require an assistive device (such as augmentive communication syste m or a communication board), OR does s/he have mild difficulty expressing complex and abstract ideas (including mild dysarthria or mild word-find problems)? No. EXPRESSION - SCORE: 7-IND SOCIAL INTERACTION: SOCIAL INTERACTION - STEP 1: Does the patient require a helper to interact with others in social and therapeutic situations? No. SOCIAL INTERACTION - STEP 2: Does the patient need extra time in social situations, OR does s/he interact with staff, other patien ts, and family members ONLY in structured environments, OR does s/he require medication for social in teraction? No. SOCIAL INTERACTION - SCORE: 7-IND PROBLEM SOLVING: PROBLEM SOLVING - STEP 1: Does the patient need help from a person or device, or need extra time to solve complex problems such as managing a checking account or confronting interpersonal problems? No. PROBLEM SOLVING - STEP 2: Does the patient require extra time to make decisions or solve problems, OR does s/he have slight dif ficulty reading, initiating, or self-correcting in unfamiliar situations? Yes, patient needs extra ti me. PROBLEM SOLVING - SCORE: 6-JADE MEMORY: MEMORY - STEP 1: Does the patient need help from a person or device, or need extra time to remember frequently encount ered people, daily routines, and executing requests? Yes. MEMORY - STEP 2: How often does the patient need help to remember frequently encountered people, daily routines, and e xecuting requests? Less than 10% of the time MEMORY - SCORE: 5-SUP SIGNATURE PANEL: The following modified sections: Eating - Score, Grooming - Score, Bathing - Score, Dressing - Upper Body - Score, Dressing - Lower Body - Score, Dressing - Lower Body - Comments:, Toileting - Score, Tr ansfers: Bed, Chair, Wheelchair - Score, Transfers: Toilet - Score, Transfers: Shower - Score, Transf ers: Tub - Score, Comprehension - Score, Expression - Score, Social Interaction - Score, Problem Solv ing - Score, Memory - Score were [electronically] signed by Jaquelin Mata OT on Sat Oct 07 2018 17: 22:31 GMT-0600 (Central Standard Time)
[2018-10-07] MEDS: ATORVASTATIN 40 MG TAB PO SCH (20:07)
--- NOTE | 2018-10-08 01:06 | FAST ---
SHIFT START DATE/TIME: 10/07/2018 19:00 (CALENDER OPERATOR) SHIFT END DATE/TIME: 10/08/2018 08:00 (CDT) NAME NEL HUI DATE OF : 1935 DATE OF ADMISSION: 10/06/2018 21:26 (CALENDER OPERATOR) PHONE: AGE: 82 SSN# [id number] GENDER: Female ENCOUNTER PHYSICIAN: Dr. Jose Terry M.D. ADMISSION DIAGNOSIS: - Stroke 01 - Left Body (Right Brain) (01.1) Right Basal Ganglia Acute Infarct. EATING: Activity did not occur on this shift EATING - SCORE: 0-UNK GROOMING: Activity did not occur on this shift GROOMING - SCORE: 0-UNK BATHING: Activity did not occur on this shift BATHING - SCORE: 0-UNK DRESSING - UPPER BODY: Patient is not dressing in public clothing ARTICLES SCORE Total number of steps: 0 DRESSING - UPPER BODY - SCORE: 0-UNK DRESSING - LOWER BODY: Patient is not dressing in public clothing ARTICLES SCORE Total number of steps: 0 DRESSING - LOWER BODY - SCORE: 0-UNK TOILETING: TOILETING - STEP 1: Does the patient require the assistance of a person or device, or need extra time with toileting? Yes . TOILETING - STEP 2: Does the patient require the assistance of a helper? Yes. TOILETING - STEP 3: How much assistance does the patient require from the helper? Hands-on assistance from the helper TOILETING - STEP 4: Of the 3 tasks: 1) Adjusting clothing prior to use, 2) Cleansing of perineal area, 3) Adjusting clot andreas after use; How many tasks does the patient perform WITHOUT assistance of the helper? Three tasks with steadying assistance from the helper TOILETING - SCORE: 4-MIN BLADDER MANAGEMENT: BLADDER MANAGEMENT - STEP 1: Does the patient control the bladder completely and intentionally without equipment or devices or med ications, and is always continent? Yes. BLADDER MANAGEMENT - SCORE: 7-IND BOWEL MANAGEMENT: Activity did not occur on this shift BOWEL MANAGEMENT - SCORE: 7-IND TRANSFERS: BED, CHAIR, WHEELCHAIR: TRANSFERS: BED, CHAIR, WHEELCHAIR - STEP 1: Does the patient require assistance of a person or device, or need extra time with bed, chair, or whe elchair transfers? Yes. TRANSFERS: BED, CHAIR, WHEELCHAIR - STEP 2: Does the patient require the assistance of a helper? Yes. TRANSFERS: BED, CHAIR, WHEELCHAIR - STEP 3: How much assistance does the patient require from the helper? Steadying/guiding assistance TRANSFERS: BED, CHAIR, WHEELCHAIR - SCORE: 4-MIN TRANSFERS: TOILET: TRANSFERS: TOILET - STEP 1: Does the patient require the assistance of a person or device, or need extra time with toilet transfe rs? Yes. TRANSFERS: TOILET - STEP 2: Does the patient require the assistance of a helper? Yes. TRANSFERS: TOILET - STEP 3: How much assistance does the patient require from the helper? Patient performs half or more of the tr ansferring tasks TRANSFERS: TOILET - STEP 4: Does the patient need only incidental help such as contact guard or steadying during toilet transfer? Yes. TRANSFERS: TOILET - SCORE: 4-MIN TRANSFERS: SHOWER: Activity did not occur on this shift TRANSFERS: SHOWER - SCORE: 0-UNK TRANSFERS: TUB: Activity did not occur on this shift TRANSFERS: TUB - SCORE: 0-UNK LOCOMOTION: WALK: Activity did not occur on this shift LOCOMOTION: WALK - SCORE: 0-UNK LOCOMOTION: WHEELCHAIR: Activity did not occur on this shift LOCOMOTION: WHEELCHAIR - SCORE: 0-UNK COMPREHENSION: COMPREHENSION: TYPE: Both COMPREHENSION - STEP 1: Does the patient require help from a person or device, or need extra time to understand complex and a bstract ideas (such as current events, finances, discharge planning, medical issues, relationships, e tc)? No. COMPREHENSION - STEP 2: Does the patient need extra time, require an assistive device (such as glasses for visual comprehensi on or a hearing aid for auditory comprehension) or does s/he have mild difficulty understanding compl ex and abstract information? Yes. COMPREHENSION - SCORE: 6-JADE EXPRESSION EXPRESSION: TYPE: Both EXPRESSION - STEP 1: Does the patient require help from a person or device, or need extra time expressing complex and abst ract ideas (such as current events, finances, discharge planning, medical issues, relationships, etc) ? No. EXPRESSION - STEP 2: Does the patient need extra time, require an assistive device (such as augmentive communication syste m or a communication board), OR does s/he have mild difficulty expressing complex and abstract ideas (including mild dysarthria or mild word-find problems)? No. EXPRESSION - SCORE: 7-IND SOCIAL INTERACTION: SOCIAL INTERACTION - STEP 1: Does the patient require a helper to interact with others in social and therapeutic situations? No. SOCIAL INTERACTION - STEP 2: Does the patient need extra time in social situations, OR does s/he interact with staff, other patien ts, and family members ONLY in structured environments, OR does s/he require medication for social in teraction? No. SOCIAL INTERACTION - SCORE: 7-IND PROBLEM SOLVING: Patient requires bed/chair alarms due to attempts to get up unassisted when helper is needed. PROBLEM SOLVING - STEP 1: How often do the bed/chair alarms go off? Occasionally - the alarms go off about 25% or less PROBLEM SOLVING - SCORE: 4-MIN MEMORY: MEMORY - STEP 1: How often do the bed/chair alarms go off? Occasionally - the alarms go off about 25% of the time or l ess MEMORY - SCORE: 4-MIN SIGNATURE PANEL: The following modified sections: Eating - Score, Grooming - Score, Bathing - Score, Dressing - Upper Body - Score, Dressing - Lower Body - Score, Toileting - Score, Bladder Management - Score, Bowel Man agement - Score, Transfers: Bed, Chair, Wheelchair - Score, Transfers: Toilet - Score, Transfers: Mary wer - Score, Transfers: Tub - Score, Locomotion: Walk - Score, Locomotion: Wheelchair - Score, Compre hension - Score, Expression - Score, Social Interaction - Score, Problem Solving - Score, Memory - Sc ore were [electronically] signed by Yelena Sánchez CNA on TueOct 08 2018 01:05:07 T-0600 ([facility])
[2018-10-08] MEDS: METOPROLOL TAR 25 MG TAB PO SCH ×2 (05:08→16:53)
[2018-10-08] MEDS: LEVOTHYROXINE SOD 0.025 MG TAB PO SCH (07:03)
[2018-10-08] MEDS: FOLIC ACID 1 MG TABLET PO SCH (08:20)
[2018-10-08] MEDS: cloNIDine HCl 0.1 MG TAB PO SCH ×2 (08:20→20:18)
[2018-10-08] MEDS: MULTIVITAMINS,THERAPEUT 1 TAB PO SCH (08:20)
[2018-10-08] MEDS: APIXABAN 2.5 MG TABLET PO SCH ×2 (08:20→20:18)
[2018-10-08] MEDS: ASPIRIN EC 81 MG TAB PO SCH (08:20)
--- NOTE | 2018-10-08 12:41 | FAST ---
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 Jose Terry M.D. ADMISSION DIAGNOSIS: - Stroke 01 - Left Body (Right Brain) (01.1) Right Basal Ganglia Acute Infarct. EATING: EATING - STEP 1: Does the patient require the assistance of a person or device, or need extra time when eating? Yes. EATING - STEP 2: Does the patient require the assistance of a helper? No, patient only requires an assistive device, O R s/he takes more than reasonable time to eat, OR there is a safety concern, OR s/he requires modifie d food consistency EATING - SCORE: 6-JADE GROOMING: Comb/brush hair Oral care Patient applied make-up GROOMING - STEP 1: Does the patient require the assistance of a person or device, or need extra time when grooming? Yes. GROOMING - STEP 2: Does the patient require the assistance of a helper? Yes. GROOMING - STEP 3: How much assistance does the patient require from the helper? Cuing, coaxing, instructions, or encour agement for completion of grooming GROOMING - SCORE: 5-SUP BATHING: Activity did not occur on this shift BATHING - SCORE: 0-UNK DRESSING - UPPER BODY: Bra (three steps) Button down/zippered sweater (four steps) T-shirt/pullover shirt (four steps) ARTICLES SCORE Total number of steps: 11 DRESSING - UPPER BODY - STEP 1: Does the patient require help from a person or device, or need extra time when dressing above the jose st? Yes. DRESSING - UPPER BODY - STEP 2: Does the patient require the assistance of a helper? Yes. DRESSING - UPPER BODY - STEP 3: Does the helper touch the patient while dressing? No. DRESSING - UPPER BODY - SCORE: 5-SUP DRESSING - LOWER BODY: ARTICLES SCORE Total number of steps: 9 DRESSING - LOWER BODY - STEP 1: Does the patient require help from a person or device, or need extra time when dressing below the jose st? Yes. DRESSING - LOWER BODY - STEP 2: Does the patient require the assistance of a helper? Yes. DRESSING - LOWER BODY - STEP 3: Does the helper touch the patient while dressing? No. DRESSING - LOWER BODY - SCORE: 5-SUP TOILETING: TOILETING - STEP 1: Does the patient require the assistance of a person or device, or need extra time with toileting? Yes . TOILETING - STEP 2: Does the patient require the assistance of a helper? Yes. TOILETING - STEP 3: How much assistance does the patient require from the helper? Only supervision TOILETING - SCORE: 5-SUP BLADDER MANAGEMENT: BLADDER MANAGEMENT - STEP 1: Does the patient control the bladder completely and intentionally without equipment or devices or med ications, and is always continent? No. BLADDER MANAGEMENT - STEP 2: Does the patient require the assistance of a helper? No, patient requires and independently uses an a ssistive device, such as a urinal, bedpan, bedside commode, catheter, absorbent pad, or collecting de vice BLADDER MANAGEMENT - SCORE: 6-JADE BOWEL MANAGEMENT: Activity did not occur on this shift BOWEL MANAGEMENT - SCORE: 7-IND TRANSFERS: BED, CHAIR, WHEELCHAIR: TRANSFERS: BED, CHAIR, WHEELCHAIR - STEP 1: Does the patient require assistance of a person or device, or need extra time with bed, chair, or whe elchair transfers? Yes. TRANSFERS: BED, CHAIR, WHEELCHAIR - STEP 2: Does the patient require the assistance of a helper? Yes. TRANSFERS: BED, CHAIR, WHEELCHAIR - STEP 3: How much assistance does the patient require from the helper? Only supervision TRANSFERS: BED, CHAIR, WHEELCHAIR - SCORE: 5-SUP TRANSFERS: TOILET: TRANSFERS: TOILET - STEP 1: Does the patient require the assistance of a person or device, or need extra time with toilet transfe rs? Yes. TRANSFERS: TOILET - STEP 2: Does the patient require the assistance of a helper? Yes. TRANSFERS: TOILET - STEP 3: How much assistance does the patient require from the helper? Patient performs half or more of the tr ansferring tasks TRANSFERS: TOILET - STEP 4: Does the patient need only incidental help such as contact guard or steadying during toilet transfer? Yes. TRANSFERS: TOILET - SCORE: 4-MIN TRANSFERS: SHOWER: Activity did not occur on this shift TRANSFERS: SHOWER - SCORE: 0-UNK TRANSFERS: TUB: Activity did not occur on this shift TRANSFERS: TUB - SCORE: 0-UNK LOCOMOTION: WALK: Activity did not occur on this shift LOCOMOTION: WALK - SCORE: 0-UNK LOCOMOTION: WHEELCHAIR: Activity did not occur on this shift LOCOMOTION: WHEELCHAIR - SCORE: 0-UNK COMPREHENSION: COMPREHENSION: TYPE: Both COMPREHENSION - STEP 1: Does the patient require help from a person or device, or need extra time to understand complex and a bstract ideas (such as current events, finances, discharge planning, medical issues, relationships, e tc)? Yes. COMPREHENSION - STEP 2: Does the patient require help to understand questions or statements about basic needs or ideas (such as hunger, thirst, sleep, safety, daily schedule, room location, or discomfort) half or more of the t cassandra? No. COMPREHENSION - STEP 3: How often does the patient need help to understand directions and conversation about basic needs? 10% - 24% of the time COMPREHENSION - SCORE: 4-MIN EXPRESSION EXPRESSION: TYPE: Both EXPRESSION - STEP 1: Does the patient require help from a person or device, or need extra time expressing complex and abst ract ideas (such as current events, finances, discharge planning, medical issues, relationships, etc) ? Yes. EXPRESSION - STEP 2: Does the patient require help to express basic necessities or ideas (such as hunger, thirst, sleep, s afety, daily schedule, room location, or discomfort) half or more of the time? No. EXPRESSION - STEP 3: How often does the patient need help to express directions and conversation about basic needs? 10-24% of the time EXPRESSION - SCORE: 4-MIN SOCIAL INTERACTION: SOCIAL INTERACTION - STEP 1: Does the patient require a helper to interact with others in social and therapeutic situations? Yes. SOCIAL INTERACTION - STEP 2: Does the patient interact appropriately half or more of the time? Yes. SOCIAL INTERACTION - STEP 3: How often does the patient need help to interact appropriately? Less than 10% of the time SOCIAL INTERACTION - SCORE: 5-SUP PROBLEM SOLVING: PROBLEM SOLVING - STEP 1: Does the patient need help from a person or device, or need extra time to solve complex problems such as managing a checking account or confronting interpersonal problems? Yes. PROBLEM SOLVING - STEP 2: Does the patient solve basic routine problems half or more of the time? Yes. PROBLEM SOLVING - STEP 3: How often does the patient need help to solve basic routine problems? 10%-24% of the time PROBLEM SOLVING - SCORE: 4-MIN MEMORY: MEMORY - STEP 1: Does the patient need help from a person or device, or need extra time to remember frequently encount ered people, daily routines, and executing requests? Yes. MEMORY - STEP 2: How often does the patient need help to remember frequently encountered people, daily routines, and e xecuting requests? 10% - 24% of the time MEMORY - SCORE: 4-MIN SIGNATURE PANEL: The following modified sections: Eating - Score, Grooming - Score, Bathing - Score, Dressing - Upper Body - Score, Dressing - Lower Body - Score, Toileting - Score, Bladder Management - Score, Bowel Man agement - Score, Transfers: Bed, Chair, Wheelchair - Score, Transfers: Toilet - Score, Transfers: Mary wer - Score, Transfers: Tub - Score, Locomotion: Walk - Score, Locomotion: Wheelchair - Score, Compre hension - Score, Expression - Score, Social Interaction - Score, Problem Solving - Score, Memory - Sc ore were [electronically] signed by Shaheen Wills on TueOct 08 2018 12:41:04 GMT-0500 (Central Daylight Time)
[2018-10-08] MEDS ORDERED: PNEUMOCOCCAL VACCINE 0.5 ML IMVAC ONE (15:00)
[2018-10-08] MEDS: ATORVASTATIN 40 MG TAB PO SCH (20:18)
[2018-10-09] MEDS: METOPROLOL TAR 25 MG TAB PO SCH ×2 (05:05→17:01)
[2018-10-09] MEDS: LEVOTHYROXINE SOD 0.025 MG TAB PO SCH (07:02)
[2018-10-09] MEDS: MULTIVITAMINS,THERAPEUT 1 TAB PO SCH (08:23)
[2018-10-09] MEDS: ASPIRIN EC 81 MG TAB PO SCH (08:23)
[2018-10-09] MEDS: FOLIC ACID 1 MG TABLET PO SCH (08:23)
[2018-10-09] MEDS: cloNIDine HCl 0.1 MG TAB PO SCH ×2 (08:23→20:10)
[2018-10-09] MEDS: APIXABAN 2.5 MG TABLET PO SCH (08:23)
--- NOTE | 2018-10-09 13:20 | R.HP ---
FACILITY: [facility] ENCOUNTER DATE AND TIME: 10/09/2018 13:10 (CDT) MR#: [id number] NAME MARIELY HUI ADDRESS: [address] [place] [address]: [place] [address]IP [id number] PHONE: DATE OF : 1935 AGE: 82 SSN# [id number] GENDER: Female DEXTERITY Right-handed MARITAL STATUS RACE White PRE-HOSPITAL LIVING SETTING 01 - Home (private home/apt. board/care, assisted living, senior care, transitional living) PRE-HOSPITAL LIVING WITH Alone ENCOUNTER PHYSICIAN: Dr. Jose Terry M.D. 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 is a 82 yo Right-handed white female. On 10/05/2018 Pt. presented to [facility] with sudden onset of left-side weakne ss. On 10/05/2018 she was admitted to [facility] with diagnosis Right Basal Ganglia Acute Infarct. Her impairment category is Stroke 01 - Left Body (Right Brain) (01.1). Pre-morbidly, Pt. was independent/mod-I in Self-Care, Sphincter Control, Transfers Control, Locomotio n, Communication, and Social Cognition; and she had good Sphincter Control. Currently, she has deficits of Locomotion, Communication, Social Cognition, Endurance, Balance, Safet y Awareness, Transfers Control, and Self-Care. Pt. is now referred to [facility] for acute in-patient rehabilitation in order to maximize patient's functional independence in activities of daily living, strength, ROM, and mobi lity. Patient has realistic goal of being discharged at assistance level 6-Dharmesh to reside at Home with Fam roberto/Relatives. Mariely Hui is an 82 year old female that lives in a single clar[place] home with 1 step to enter. Patient is independent with ADL who does laundry, cooking and still driving. On 10/05/2018, she fell at home and was admitted to [facility] and treated. She is now medically stable but in need of 24-hour nursing, doctor supervision and oversite while receiving acti ve and ongoing intensive PT, OT expected to participate in 3hours of therapy a day/15 hours per week and receive care with an intensive interdisciplinary approach. MEDICATION ALLERGIES: Penicillin ENVIRONMENTAL ALLERGIES: None Known - Substance Allergies None Known - Other Allergies None Known PAST MEDICAL HISTORY: Atrial Fibrillation Breast Cancer Hypothyroidism PAST SURGICAL HISTORY: Bilateral Breast Mastectomy FAMILY HISTORY: Family history is not contributory. SOCIAL HISTORY: - Home Living Alone REVIEW OF SYSTEMS: - Gen No Chills Fatigue No Fever - Eyes No Double Vision No itchiness - ENMT No Difficulty Swallowing - CVS No Chest Discomfort No Chest Pain Fatigue No Weight Gain - Resp No Cough No Shortness of Breath - GI Continent No Abdominal Pain No Constipation No Diarrhea - Continent No Kidney Pain No Painful Urination No Urinary Urgency - MSK No Joint Pain Muscle Cramps Stiffness - Skin No Itching No Rash No Suspicious Lesions - Neuro Coordination Difficulty No Difficulty with Concentration No Memory Loss No Seizures Weakness - Psych No Anxiety No Depression No HIV Exposure No Persistent Infections No Seasonal Allergies - Endo No Cold/Heat Intolerance No Excessive Hunger No Excessive Thirst No Excessive Urination PHYSICAL EXAM - Gen Alert and awake Lying in bed No apparent distress Oriented to: person, time, and place - Skin No breakdown No abnormalities - Eyes No abnormalities - ENMT No abnormalities - Neck No abnormalities - CVS RRR - Chest Clear - Resp Clear to auscultation - Abd +bowel sounds - GI Soft Deferred - No abnormalities - Ext No significant edema - MSK 4+/5 weakness in left and right lower extremity - Neuro 4/5 strength left upper and lower extremities. - Psych No abnormalities VITAL SIGNS Temperature: 97.7 F SBP/DBP: 133/67 Pulse: 76 Resp: 16 NURSING: - Shower allowing shower - Bladder care per protocol - Skin care per protocol PRECAUTIONS: - Weight Bearing Precaution WBAT left LE ACTIVITIES OOB only with supervision FUNCTIONAL STATUS: - Self-Care A. Eating Ind Ind B. Grooming Ind Ind C. Bathing Ind sup D. Dressing - Upper Ind Terrance E. Dressing - Lower Ind modA F. Toileting Ind modA - Sphincter Control G: Bladder control Ind Ind H: Bowel control Ind Ind - Transfers Control I. Bed/Chair/Wheelchair Ind Dharmesh J. Toilet Ind Terrance K. Tub/Shower Ind ADNO - Locomotion L. Walk/Wheelchair (C) Ind CGA L. Walk/Wheelchair (W) Ind CGA M. Stairs Ind ADNO - Communication N. Comprehension (B) Ind sup O. Expression (B) Ind sup - Social Cognition P. Social Interaction Ind sup Q. Problem Solving Ind sup R. Memory Ind sup - Endurance Fair - Balance Fair - Safety Awareness Fair CURRENT FUNC. DEFICITS: Locomotion, Communication, Social Cognition, Endurance, Balance, Safety Awareness, Transfers Control, and Self-Care ASSESSMENT: Pt. is a 82 yo Right-handed white female.On 10/05/2018 Pt. presented to [facility] with sudden onset of left-side weakness.On 10/05/2018 she was admitted to [facility] with diagnosis Right Basal Ganglia Acute Infarct.Her impairment category is Stroke 01 - Le ft Body (Right Brain) (01.1).Pre-morbidly, Pt. was independent/mod-I in Self-Care, Sphincter Control, Transfers Control, Locomotion, Communication, and Social Cognition; and she had good Sphincter Contr ol.Currently, she has deficits of Locomotion, Communication, Social Cognition, Endurance, Balance, Sa fety Awareness, Transfers Control, and Self-Care.Pt. is now referred to [facility] for acute in-patient rehabilitation in order to maximize patient's functional independence in ac tivities of daily living, strength, ROM, and mobility.- Rehab Goal Patient has realistic goal of being discharged at assistance level 6-Dharmesh to reside at Home with Fam roberto/Relatives. Mariely Hui is an 82 year old female that lives in a single [place] home with 1 step to enter. Patient is independent with ADL who does laundry, cooking and still driving. On 10/05/2018, she fell at home and was admitted to [facility] and treated. She is now medically stable but in need of 24-hour nursing, doctor supervision and oversite while receiving acti ve and ongoing intensive PT, OT expected to participate in 3hours of therapy a day/15 hours per week and receive care with an intensive interdisciplinary approach.REHAB PLAN: for Dementia, TBI, Stroke, or others - Physical Therapy Gait dysfunction - to improve, our physical therapists will perform initial evaluation of pt's status upon admission and devise an individualized program for Gait Training, and Wheel Chair mobility Inability to transfer - to improve, our physical therapists will perform initial evaluation of pt's s tatus upon admission and devise an individualized program for Bed mobility Need for home safety evaluation - to improve, our physical therapists will perform initial evaluation of pt's status upon admission and devise an individualized program for Home Evaluation Need in caregiver upon discharge - to improve, our physical therapists will perform initial evaluatio n of pt's status upon admission and devise an individualized program for Caregiver Training New precaution - to improve, our physical therapists will perform initial evaluation of pt's status u brittany admission and devise an individualized program for Patient precaution education Edema - to improve, our physical therapists will perform initial evaluation of pt's status upon admi ssion and devise an individualized program for Elevation Training, and Lymphedema Therapy Poor balance - to improve, our physical therapists will perform initial evaluation of pt's status upo n admission and devise an individualized program for Balance Training Poor endurance - to improve, our physical therapists will perform initial evaluation of pt's status u brittany admission and devise an individualized program for Endurance Training Weakness - to improve, our physical therapists will perform initial evaluation of pt's status upon ad mission and devise an individualized program for Aquatic Therapy, Neuromuscular Reeducation, and Stre ngthening Achieving independence - to improve, our physical therapists will perform initial evaluation of pt's status upon admission and devise an individualized program for Community Reintegration Activities - Occupational Therapy ADL deficits - to improve, our occupation therapists will perform initial evaluation of pt's status u brittany admission and devise an individualized program for Bathing, Bed mobility, Community Reintegration , Cooking, Dressing, Eating, Fine Motor Skills, Grooming, Homemaking, Kitchen Mobility, Laundry, Su ent Education, Safety Awareness, Splinting - Positioning, Transfers(Toilet, Tub, Shower), and Wheel C hair Management Cognitive deficits - to improve, our occupation therapists will perform initial evaluation of pt's st atus upon admission and devise an individualized program for Cognition - orientation Need for health care liaison - to improve, our occupation therapists will perform initial evaluation of pt's s tatus upon admission and devise an individualized program for Caregiver Training Weakness - to improve, our occupation therapists will perform initial evaluation of pt's status upon admission and devise an individualized program for Aquatic Therapy, Balance, Endurance, UE ROM, and U E strengthening MEDICAL PLAN: - Diet Type Start Regular - Diet - Liquid Texture Start Regular - Tube Feed Start N/A - Bladder care per protocol - Weight Bearing Precaution WBAT left LE - Skin care per protocol - Diet - Solid Texture Regular - Shower shower DISCHARGE PLAN: - Estimated Length of Stay (days) 17. - Consensus on plan Discharge plan has been discussed with primary caregiver. Patient/Family is in agreement with the julianne n. Primary caregiver is in agreement with the plan. - Patient/Family Goals Return home with assistance. - Planned Living Setting Upon Discharge Home, to live with Family/Relatives. SIGNATURE PANEL: (CDT)
--- NOTE | 2018-10-09 13:22 | PAPE ---
PATIENT: [facility] MR# [id number] REFERRING DOCTOR jim Chisholm EVALUATION DATE AND TIME 10/09/2018 13:20 (CDT) NAME NEL HUI DATE OF 1935 AGE 82 PHONE SSN# [id number] GENDER female EVALUATING PHYSICIAN Dr. Jose Terry M.D. ADMISSION DIAGNOSIS: Right Basal Ganglia Acute Infarct ONSET DATE 10/05/2018 SECONDARY/COMORBID DIAGNOSES TIERED: - N/A Hypothyroidism Atrial Fibrillation Breast Cancer POST-ADMISSION FUNCTIONAL/MEDICAL STATUS: - Bladder Same accident frequency: Ind - No accidents in the past 7 days - Bowel Same accident frequency: Ind - No accidents in the past 7 days - Walking Same score based on distance walked: 3(>=150ft) - Wheelchair Same score based on distance traveled: 0(N/A) STATUS CHANGE EVALUATION: No change in Functional or Medical Status is identified compared with Pre-Admission screening. PATIENT NEEDS CLOSE MEDICAL SUPERVISION BY A REHABILITATION PHYSICIAN FOR: Bowel and Bladder Management Coordination of Treatment Team Medical and Co-Morbidity Management DVT Management Pain Management PATIENT REQUIRES 24X7 REHAB NURSING FOR MEDICAL AND FUNCTIONAL MGT. OF THE FOLLOWING DEFICITS: ADL's Ambulation Bowel and Bladder Management Cognition Communication Disease Management Medication Management Patient/Family Education Providing Safe Environment Transfers PATIENT REQUIRES INTENSIVE, COORDINATED INTERDISCIPLINARY APPROACH TO REHAB: Arranging Home Equipment/Services Discharge Planning Family Intervention/Training Clinical Education Academic Coordinator/Case Management LIST OF IDENTIFIED AND POTENTIAL PROBLEMS: Alteration in leisure activities Bladder, Incontinence Bowel, Incontinence Infection, Actual or Potential Mobility Impaired Pain, Alteration in Comfort Self Care Deficit Skin Integrity, Actual or Potential Urinary Tract Infection (UTI), Actual or Potential RISK FOR COMPLICATIONS - Atrial Fibrillation CVA. Heart failure. Limb embolus. INTERVENTIONS - Atrial Fibrillation Anticoagulation. Medications. VS. PATIENT COULD BE AT RISK FOR COMPLICATIONS FROM ADVERSE MEDICAL CONDITIONS DUE TO HIS/HER COMORBIDITI ES AND THE RIGORS OF THE INTENSIVE REHABILLITATION PROGRAM. METHODS OR INTERVENTIONS TO AVOID COMPLIC ATIONS INCLUDE: - Deep Vein Thrombosis (DVT) Prophylaxis therapy for prevention . Sequential Compression Device (SCD). TE D Hose. - Bleeding Stroke patients assessed for lethargy or change in status. - Infection Clinical staff to assess and manage the signs and symptoms of infection including fever, redness, war mth, etc. - Urinary Tract Infection - Aspiration Clinical staff will assess and manage coughing, drooling, congestion. - Falls Patient will be evaluated for Fall Precautions and will be placed on Fall Precautions as indicated pe r protocol. - Skin Breakdown Nursing will assess skin daily using assessment tool and will place on Skin Breakdown Precautions as indicated per protocol. - Pain Clinical staff may employ non-medication methods such as massage, distraction, decrease stimulus, etc . as needed. Clinical staff will assess patient's pain level every shift per protocol to assess and e nsure pain management effectiveness. Medications will be given and the pain level re-assessed. PRELIMINARY PLAN OF CARE: - Physical Therapy Patient needs Physical Therapy for a daily minimum of 1.5 hours at least 5 out of 7 days, to improve: Mobility, Strengthening, Transfers, Stretching, ROM, Endurance, Ability to manage stairs, Gait, and Balance. - Speech Therapy Patient needs Speech Therapy for a daily minimum of 0.5 hours at least 5 out of 7 days, to improve: S wallowing, Cognition, Language Skills, and Compensatory Strategies. - Rehabilitation Nursing Patient requires 24x7 Rehabilitation Nursing for: Pain Issues, Identifying and preventing risk factor s, Monitoring and reporting current medical conditions, Assisting with ambulation and transfer, Carie ting with all ADL-s, Teaching patients about disease process and medications, Family teaching, Provid ing safe environment, Bowel and Bladder Issues, Skin Integrity, and Medication Management. Patient needs Clinical Education Academic Coordinator and/or Case Management for: Discharge Planning, Arranging Home Equipmen t or Services, and Family Interventions. - Dietary and Nutrition Services Patient needs Dietary and Nutrition Services for: Adequate Nutrition, Nutritional Supplements, and Nu tritional Education. - Occupational Therapy Patient needs Occupational Therapy for a daily minimum of 1.5 hours at least 5 out of 7 days, to impr ove Activities of Daily Living, including: Eating, Grooming, Bathing, Dressing, Toileting, Toilet Tra nsfers, Community Reintegration, Higher functional activities, Adaptive Equipment, Splinting, Househo ld Tasks, and Other activities as determined. POTENTIAL FUNCTIONAL GOALS FOR PATIENT TO ACHIEVE BY DISCHARGE: - Safety Precaution Patient will remain free from falls or injury at time of discharge. - Bed Mobility Patient will perform bed mobility at 4-Terrance level of assistance. - Transfers Patient will complete transfers from bed to chair at 4-Terrance level of assistance. - Mobility Patient will ambulate 150 ft with 4-Terrance level of assistance with RW. PATIENT REHAB POTENTIAL Expected level of measurable improvement will be of a practical value to patient's functional capacit y or adaptations to impairments Has a viable Discharge Plan Medically appropriate; condition is sufficiently stable to participate in intensive rehab program Patient is able and expected to receive 3 hours of individualized therapy daily on at least 5 of ever y 7 days Patient's prognosis for significant practical improvement within a reasonable period of time appears Good DISCHARGE PLAN: - Estimated Length of Stay (days) 17. - Consensus on plan Discharge plan has been discussed with primary caregiver. Patient/Family is in agreement with the julianne n. Primary caregiver is in agreement with the plan. - Patient/Family Goals Return home with assistance. - Planned Living Setting Upon Discharge Home, to live with Family/Relatives. CONCLUSION ON REHABILITATION NECESSITY: I have evaluated patient's pre-admission functional status and, comparing it to the patient's post-ad mission functional status now, I conclude that the pre-admission assessment was accurate. Patient's c ondition on admission supports the medical necessity of admission to IRF. It is safe to proceed with patient's therapy program. SIGNATURE PANEL: (CDT)
[2018-10-09] MEDS ORDERED: MELATONIN 3 MG TABLET PO PRN (13:54)
--- NOTE | 2018-10-09 14:23 | FAST ---
ENCOUNTER DATE AND TIME: 10/09/2018 08:00 (CDT) NAME NEL HUI DATE OF : 1935 DATE OF ADMISSION: 10/06/2018 21:26 ([facility] [employer]) PHONE: AGE: 82 SSN# [id number] GENDER: Female ENCOUNTER PHYSICIAN: Dr. Jose Terry M.D. ADMISSION DIAGNOSIS: - Stroke 01 - Left Body (Right Brain) (01.1) Right Basal Ganglia Acute Infarct. EATING: Activity did not occur on this shift EATING - SCORE: 0-UNK GROOMING: Activity did not occur on this shift GROOMING - SCORE: 0-UNK BATHING: Activity did not occur on this shift BATHING - SCORE: 0-UNK DRESSING - UPPER BODY: Activity did not occur on this shift Patient is not dressing in public clothing ARTICLES SCORE Total number of steps: 0 DRESSING - UPPER BODY - SCORE: 0-UNK DRESSING - LOWER BODY: Activity did not occur on this shift Patient is not dressing in public clothing ARTICLES SCORE Total number of steps: 0 DRESSING - LOWER BODY - SCORE: 0-UNK TOILETING: Activity did not occur on this shift TOILETING - SCORE: 0-UNK BLADDER MANAGEMENT: Activity did not occur on this shift BLADDER MANAGEMENT - SCORE: 7-IND BOWEL MANAGEMENT: Activity did not occur on this shift BOWEL MANAGEMENT - SCORE: 7-IND TRANSFERS: BED, CHAIR, WHEELCHAIR: TRANSFERS: BED, CHAIR, WHEELCHAIR - STEP 1: Does the patient require assistance of a person or device, or need extra time with bed, chair, or whe elchair transfers? Yes. TRANSFERS: BED, CHAIR, WHEELCHAIR - STEP 2: Does the patient require the assistance of a helper? No. Patient only requires an assistive device fo r bed, chair, wheelchair transfers such as a sliding board, grab bar, or brace, OR s/he takes more th an reasonable time, OR there is a safety concern when s/he performs the transfers TRANSFERS: BED, CHAIR, WHEELCHAIR - SCORE: 6-JADE TRANSFERS: TOILET: TRANSFERS: TOILET - STEP 1: Does the patient require the assistance of a person or device, or need extra time with toilet transfe rs? Yes. TRANSFERS: TOILET - STEP 2: Does the patient require the assistance of a helper? No. Patient only requires an assistive device liu ch as a grab bar or special seat, OR s/he takes more than reasonable time to perform toilet transfers , OR there is a safety concern when s/he performs toilet transfers. TRANSFERS: TOILET - SCORE: 6-JADE TRANSFERS: SHOWER: Activity did not occur on this shift TRANSFERS: SHOWER - SCORE: 0-UNK TRANSFERS: TUB: Activity did not occur on this shift TRANSFERS: TUB - SCORE: 0-UNK LOCOMOTION: WALK: LOCOMOTION: WALK - STEP 1: Does the patient need help from a person or device, or need extra time to walk 150 feet? Yes. LOCOMOTION: WALK - STEP 2: How much assistance does the patient require to walk a minimum of 150 feet? Only supervision, cuing, or coaxing LOCOMOTION: WALK - SCORE: 5-SUP LOCOMOTION: WHEELCHAIR: Activity did not occur on this shift LOCOMOTION: WHEELCHAIR - SCORE: 0-UNK LOCOMOTION: STAIRS: Activity did not occur on this shift LOCOMOTION: STAIRS - SCORE: 0-UNK COMPREHENSION: COMPREHENSION - SCORE: 0-UNK EXPRESSION EXPRESSION - SCORE: 0-UNK SOCIAL INTERACTION: SOCIAL INTERACTION - SCORE: 0-UNK PROBLEM SOLVING: PROBLEM SOLVING - SCORE: 0-UNK MEMORY: MEMORY - SCORE: 0-UNK SIGNATURE PANEL: The following modified sections: Transfers: Bed, Chair, Wheelchair - Score, Transfers: Toilet - Score , Locomotion: Walk - Score, Locomotion: Wheelchair - Score, Locomotion: Stairs - Score were [garo [email or web address]] signed by Winsome Marin PTA on TueOct 09 2018 14:23:04 [facility]-0500 (Central Daylight Time)
--- NOTE | 2018-10-09 14:25 | FAST ---
SHIFT START DATE/TIME: 10/09/2018 07:00 (CDT) SHIFT END DATE/TIME: 10/09/2018 19:00 (CDT) NAME NEL HUI DATE OF : 1935 DATE OF ADMISSION: 10/06/2018 21:26 ([facility]) PHONE: AGE: 82 SSN# [id number] GENDER: Female ENCOUNTER PHYSICIAN: Dr. Jose Terry M.D. ADMISSION DIAGNOSIS: - Stroke 01 - Left Body (Right Brain) (01.1) Right Basal Ganglia Acute Infarct. EATING: EATING - STEP 1: Does the patient require the assistance of a person or device, or need extra time when eating? Yes. EATING - STEP 2: Does the patient require the assistance of a helper? No, patient only requires an assistive device, O R s/he takes more than reasonable time to eat, OR there is a safety concern, OR s/he requires modifie d food consistency EATING - SCORE: 6-JADE GROOMING: Comb/brush hair Oral care Wash, rinse, and dry face Wash, rinse, and dry hands GROOMING - STEP 1: Does the patient require the assistance of a person or device, or need extra time when grooming? Yes. GROOMING - STEP 2: Does the patient require the assistance of a helper? Yes. GROOMING - STEP 3: How much assistance does the patient require from the helper? Cuing, coaxing, instructions, or encour agement for completion of grooming GROOMING - SCORE: 5-SUP BATHING: Activity did not occur on this shift BATHING - SCORE: 0-UNK DRESSING - UPPER BODY: Bra (three steps) Button down shirt or blouse - NOT tucked in (four steps) T-shirt/pullover shirt (four steps) ARTICLES SCORE Total number of steps: 11 DRESSING - UPPER BODY - STEP 1: Does the patient require help from a person or device, or need extra time when dressing above the jose st? Yes. DRESSING - UPPER BODY - STEP 2: Does the patient require the assistance of a helper? Yes. DRESSING - UPPER BODY - STEP 3: Does the helper touch the patient while dressing? No. DRESSING - UPPER BODY - SCORE: 5-SUP DRESSING - LOWER BODY: Slip-on shoe - Left foot (one step) Slip-on shoe - Right foot (one step) Zippered pants (four steps) ARTICLES SCORE Total number of steps: 6 DRESSING - LOWER BODY - STEP 1: Does the patient require help from a person or device, or need extra time when dressing below the jose st? Yes. DRESSING - LOWER BODY - STEP 2: Does the patient require the assistance of a helper? Yes. DRESSING - LOWER BODY - STEP 3: Does the helper touch the patient while dressing? No. DRESSING - LOWER BODY - SCORE: 5-SUP TOILETING: TOILETING - STEP 1: Does the patient require the assistance of a person or device, or need extra time with toileting? Yes . TOILETING - STEP 2: Does the patient require the assistance of a helper? Yes. TOILETING - STEP 3: How much assistance does the patient require from the helper? Only supervision TOILETING - SCORE: 5-SUP BLADDER MANAGEMENT: BLADDER MANAGEMENT - STEP 1: Does the patient control the bladder completely and intentionally without equipment or devices or med ications, and is always continent? No. BLADDER MANAGEMENT - STEP 2: Does the patient require the assistance of a helper? No, patient only requires extra time BLADDER MANAGEMENT - SCORE: 6-JADE BLADDER MANAGEMENT - FREQUENCY OF ACCIDENTS: BLADDER MANAGEMENT(FA) - STEP 1: How many accidents has the patient had during the current shift? 0 BOWEL MANAGEMENT: BOWEL MANAGEMENT - STEP 1: Does the patient control bowels completely and intentionally without equipment devices or medications AND is always continent? No. BOWEL MANAGEMENT - STEP 2: Does the patient require the assistance of a helper? No, patient requires medication for control such as stool softeners, suppositories, laxatives, enemas, or OTC medications BOWEL MANAGEMENT - SCORE: 6-JADE BOWEL MANAGEMENT - FREQUENCY OF ACCIDENTS: BOWEL MANAGEMENT(FA) - STEP 1: How many accidents has the patient had during the current shift? 0 TRANSFERS: BED, CHAIR, WHEELCHAIR: TRANSFERS: BED, CHAIR, WHEELCHAIR - STEP 1: Does the patient require assistance of a person or device, or need extra time with bed, chair, or whe elchair transfers? Yes. TRANSFERS: BED, CHAIR, WHEELCHAIR - STEP 2: Does the patient require the assistance of a helper? Yes. TRANSFERS: BED, CHAIR, WHEELCHAIR - STEP 3: How much assistance does the patient require from the helper? Only supervision TRANSFERS: BED, CHAIR, WHEELCHAIR - SCORE: 5-SUP TRANSFERS: TOILET: TRANSFERS: TOILET - STEP 1: Does the patient require the assistance of a person or device, or need extra time with toilet transfe rs? Yes. TRANSFERS: TOILET - STEP 2: Does the patient require the assistance of a helper? Yes. TRANSFERS: TOILET - STEP 3: How much assistance does the patient require from the helper? Patient performs half or more of the tr ansferring tasks TRANSFERS: TOILET - STEP 4: Does the patient need only incidental help such as contact guard or steadying during toilet transfer? Yes. TRANSFERS: TOILET - SCORE: 4-MIN TRANSFERS: SHOWER: Activity did not occur on this shift TRANSFERS: SHOWER - SCORE: 0-UNK TRANSFERS: TUB: Activity did not occur on this shift TRANSFERS: TUB - SCORE: 0-UNK LOCOMOTION: WALK: Activity did not occur on this shift LOCOMOTION: WALK - SCORE: 0-UNK LOCOMOTION: WHEELCHAIR: Activity did not occur on this shift LOCOMOTION: WHEELCHAIR - SCORE: 0-UNK COMPREHENSION: COMPREHENSION: TYPE: Both COMPREHENSION - STEP 1: Does the patient require help from a person or device, or need extra time to understand complex and a bstract ideas (such as current events, finances, discharge planning, medical issues, relationships, e tc)? Yes. COMPREHENSION - STEP 2: Does the patient require help to understand questions or statements about basic needs or ideas (such as hunger, thirst, sleep, safety, daily schedule, room location, or discomfort) half or more of the t cassandra? No. COMPREHENSION - STEP 3: How often does the patient need help to understand directions and conversation about basic needs? 10% - 24% of the time COMPREHENSION - SCORE: 4-MIN EXPRESSION EXPRESSION: TYPE: Both EXPRESSION - STEP 1: Does the patient require help from a person or device, or need extra time expressing complex and abst ract ideas (such as current events, finances, discharge planning, medical issues, relationships, etc) ? Yes. EXPRESSION - STEP 2: Does the patient require help to express basic necessities or ideas (such as hunger, thirst, sleep, s afety, daily schedule, room location, or discomfort) half or more of the time? No. EXPRESSION - STEP 3: How often does the patient need help to express directions and conversation about basic needs? 10-24% of the time EXPRESSION - SCORE: 4-MIN SOCIAL INTERACTION: SOCIAL INTERACTION - STEP 1: Does the patient require a helper to interact with others in social and therapeutic situations? No. SOCIAL INTERACTION - STEP 2: Does the patient need extra time in social situations, OR does s/he interact with staff, other patien ts, and family members ONLY in structured environments, OR does s/he require medication for social in teraction? Yes, patient needs extra time SOCIAL INTERACTION - SCORE: 6-JADE PROBLEM SOLVING: PROBLEM SOLVING - STEP 1: Does the patient need help from a person or device, or need extra time to solve complex problems such as managing a checking account or confronting interpersonal problems? Yes. PROBLEM SOLVING - STEP 2: Does the patient solve basic routine problems half or more of the time? Yes. PROBLEM SOLVING - STEP 3: How often does the patient need help to solve basic routine problems? 10%-24% of the time PROBLEM SOLVING - SCORE: 4-MIN MEMORY: MEMORY - STEP 1: Does the patient need help from a person or device, or need extra time to remember frequently encount ered people, daily routines, and executing requests? Yes. MEMORY - STEP 2: How often does the patient need help to remember frequently encountered people, daily routines, and e xecuting requests? 10% - 24% of the time MEMORY - SCORE: 4-MIN SIGNATURE PANEL: The following modified sections: Eating - Score, Grooming - Score, Bathing - Score, Dressing - Upper Body - Score, Dressing - Lower Body - Score, Toileting - Score, Bladder Management - Score, Bowel Man agement - Score, Transfers: Bed, Chair, Wheelchair - Score, Transfers: Toilet - Score, Transfers: Mary wer - Score, Transfers: Tub - Score, Locomotion: Walk - Score, Locomotion: Wheelchair - Score, Compre hension - Score, Expression - Score, Social Interaction - Score, Problem Solving - Score, Memory - Sc ore were [electronically] signed by Tisha Smith C.N.A. on TueOct 09 2018 14:24:52 T-0500 (Cent[place] Daylight Time)
[2018-10-09] MEDS: CRANBERRY FRUIT EXTRACT 200 MG CAP PO SCH (20:09)
[2018-10-09] MEDS: CIPROFLOXACIN HCL 500 MG TAB PO SCH (20:10)
[2018-10-09] MEDS: ATORVASTATIN 40 MG TAB PO SCH (20:10)
[2018-10-09] MEDS: APIXABAN 5 MG TABLET PO SCH (20:10)
--- NOTE | 2018-10-10 02:19 | FAST ---
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 Jose Terry M.D. ADMISSION DIAGNOSIS: - Stroke 01 - Left Body (Right Brain) (01.1) Right Basal Ganglia Acute Infarct. EATING: Activity did not occur on this shift EATING - SCORE: 0-UNK GROOMING: Activity did not occur on this shift GROOMING - SCORE: 0-UNK BATHING: Activity did not occur on this shift BATHING - SCORE: 0-UNK DRESSING - UPPER BODY: Patient is not dressing in public clothing ARTICLES SCORE Total number of steps: 0 DRESSING - UPPER BODY - SCORE: 0-UNK DRESSING - LOWER BODY: Patient is not dressing in public clothing ARTICLES SCORE Total number of steps: 0 DRESSING - LOWER BODY - SCORE: 0-UNK TOILETING: TOILETING - STEP 1: Does the patient require the assistance of a person or device, or need extra time with toileting? Yes . TOILETING - STEP 2: Does the patient require the assistance of a helper? Yes. TOILETING - STEP 3: How much assistance does the patient require from the helper? Only supervision TOILETING - SCORE: 5-SUP BLADDER MANAGEMENT: BLADDER MANAGEMENT - STEP 1: Does the patient control the bladder completely and intentionally without equipment or devices or med ications, and is always continent? No. BLADDER MANAGEMENT - STEP 2: Does the patient require the assistance of a helper? Yes. BLADDER MANAGEMENT - STEP 3: How much assistance does the patient require from the helper? Only supervision, stand-by, cuing, or c oaxing BLADDER MANAGEMENT - SCORE: 5-SUP BOWEL MANAGEMENT: Activity did not occur on this shift BOWEL MANAGEMENT - SCORE: 7-IND TRANSFERS: BED, CHAIR, WHEELCHAIR: TRANSFERS: BED, CHAIR, WHEELCHAIR - STEP 1: Does the patient require assistance of a person or device, or need extra time with bed, chair, or whe elchair transfers? Yes. TRANSFERS: BED, CHAIR, WHEELCHAIR - STEP 2: Does the patient require the assistance of a helper? Yes. TRANSFERS: BED, CHAIR, WHEELCHAIR - STEP 3: How much assistance does the patient require from the helper? Steadying/guiding assistance TRANSFERS: BED, CHAIR, WHEELCHAIR - SCORE: 4-MIN TRANSFERS: TOILET: TRANSFERS: TOILET - STEP 1: Does the patient require the assistance of a person or device, or need extra time with toilet transfe rs? Yes. TRANSFERS: TOILET - STEP 2: Does the patient require the assistance of a helper? Yes. TRANSFERS: TOILET - STEP 3: How much assistance does the patient require from the helper? Only supervision, cuing, coaxing, OR he lp to set out transfer equipment or to lock brakes and/or lift foot rests TRANSFERS: TOILET - SCORE: 5-SUP TRANSFERS: SHOWER: Activity did not occur on this shift TRANSFERS: SHOWER - SCORE: 0-UNK TRANSFERS: TUB: Activity did not occur on this shift TRANSFERS: TUB - SCORE: 0-UNK LOCOMOTION: WALK: Activity did not occur on this shift LOCOMOTION: WALK - SCORE: 0-UNK LOCOMOTION: WHEELCHAIR: Activity did not occur on this shift LOCOMOTION: WHEELCHAIR - SCORE: 0-UNK COMPREHENSION: COMPREHENSION: TYPE: Both COMPREHENSION - STEP 1: Does the patient require help from a person or device, or need extra time to understand complex and a bstract ideas (such as current events, finances, discharge planning, medical issues, relationships, e tc)? Yes. COMPREHENSION - STEP 2: Does the patient require help to understand questions or statements about basic needs or ideas (such as hunger, thirst, sleep, safety, daily schedule, room location, or discomfort) half or more of the t cassandra? No. COMPREHENSION - STEP 3: How often does the patient need help to understand directions and conversation about basic needs? Les s than 10% of the time COMPREHENSION - SCORE: 5-SUP EXPRESSION EXPRESSION: TYPE: Both EXPRESSION - STEP 1: Does the patient require help from a person or device, or need extra time expressing complex and abst ract ideas (such as current events, finances, discharge planning, medical issues, relationships, etc) ? No. EXPRESSION - STEP 2: Does the patient need extra time, require an assistive device (such as augmentive communication syste m or a communication board), OR does s/he have mild difficulty expressing complex and abstract ideas (including mild dysarthria or mild word-find problems)? Yes. EXPRESSION - SCORE: 6-JADE SOCIAL INTERACTION: SOCIAL INTERACTION - STEP 1: Does the patient require a helper to interact with others in social and therapeutic situations? No. SOCIAL INTERACTION - STEP 2: Does the patient need extra time in social situations, OR does s/he interact with staff, other patien ts, and family members ONLY in structured environments, OR does s/he require medication for social in teraction? Yes, patient needs extra time SOCIAL INTERACTION - SCORE: 6-JADE PROBLEM SOLVING: PROBLEM SOLVING - STEP 1: Does the patient need help from a person or device, or need extra time to solve complex problems such as managing a checking account or confronting interpersonal problems? Yes. PROBLEM SOLVING - STEP 2: Does the patient solve basic routine problems half or more of the time? Yes. PROBLEM SOLVING - STEP 3: How often does the patient need help to solve basic routine problems? Less than 10% of the time PROBLEM SOLVING - SCORE: 5-SUP MEMORY: MEMORY - STEP 1: Does the patient need help from a person or device, or need extra time to remember frequently encount ered people, daily routines, and executing requests? Yes. MEMORY - STEP 2: How often does the patient need help to remember frequently encountered people, daily routines, and e xecuting requests? Less than 10% of the time MEMORY - SCORE: 5-SUP
[2018-10-10] MEDS: METOPROLOL TAR 25 MG TAB PO SCH ×2 (05:21→17:10)
[2018-10-10] MEDS: LEVOTHYROXINE SOD 0.025 MG TAB PO SCH (06:35)
[2018-10-10] MEDS ORDERED: CYANOCOBALAMIN 1,000 MCG TAB PO SCH (08:00)
[2018-10-10] MEDS: CRANBERRY FRUIT EXTRACT 200 MG CAP PO SCH ×2 (08:29→19:43)
[2018-10-10] MEDS: APIXABAN 5 MG TABLET PO SCH ×2 (08:29→19:44)
[2018-10-10] MEDS: ASPIRIN EC 81 MG TAB PO SCH (08:29)
[2018-10-10] MEDS: MULTIVITAMINS,THERAPEUT 1 TAB PO SCH (08:29)
[2018-10-10] MEDS: cloNIDine HCl 0.1 MG TAB PO SCH ×2 (08:29→19:44)
[2018-10-10] MEDS: FOLIC ACID 1 MG TABLET PO SCH (08:29)
[2018-10-10] MEDS: CIPROFLOXACIN HCL 500 MG TAB PO SCH (08:29)
[2018-10-10] MEDS: DULOXETINE 20 MG CAP PO SCH (08:29)
--- NOTE | 2018-10-10 14:07 | FAST ---
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 Jose Terry M.D. ADMISSION DIAGNOSIS: - Stroke 01 - Left Body (Right Brain) (01.1) Right Basal Ganglia Acute Infarct. EATING: EATING - STEP 1: Does the patient require the assistance of a person or device, or need extra time when eating? Yes. EATING - STEP 2: Does the patient require the assistance of a helper? No, patient only requires an assistive device, O R s/he takes more than reasonable time to eat, OR there is a safety concern, OR s/he requires modifie d food consistency EATING - SCORE: 6-JADE GROOMING: Comb/brush hair Wash, rinse, and dry face Wash, rinse, and dry hands GROOMING - STEP 1: Does the patient require the assistance of a person or device, or need extra time when grooming? Yes. GROOMING - STEP 2: Does the patient require the assistance of a helper? Yes. GROOMING - STEP 3: How much assistance does the patient require from the helper? Cuing, coaxing, instructions, or encour agement for completion of grooming GROOMING - SCORE: 5-SUP BATHING: Activity did not occur on this shift BATHING - SCORE: 0-UNK DRESSING - UPPER BODY: Bra (three steps) T-shirt/pullover shirt (four steps) ARTICLES SCORE Total number of steps: 7 DRESSING - UPPER BODY - STEP 1: Does the patient require help from a person or device, or need extra time when dressing above the jose st? Yes. DRESSING - UPPER BODY - STEP 2: Does the patient require the assistance of a helper? Yes. DRESSING - UPPER BODY - STEP 3: Does the helper touch the patient while dressing? No. DRESSING - UPPER BODY - SCORE: 5-SUP DRESSING - LOWER BODY: Elastic waist pants (three steps) Slip-on shoe - Left foot (one step) Slip-on shoe - Right foot (one step) ARTICLES SCORE Total number of steps: 5 DRESSING - LOWER BODY - STEP 1: Does the patient require help from a person or device, or need extra time when dressing below the jose st? Yes. DRESSING - LOWER BODY - STEP 2: Does the patient require the assistance of a helper? Yes. DRESSING - LOWER BODY - STEP 3: Does the helper touch the patient while dressing? No. DRESSING - LOWER BODY - SCORE: 5-SUP TOILETING: TOILETING - STEP 1: Does the patient require the assistance of a person or device, or need extra time with toileting? Yes . TOILETING - STEP 2: Does the patient require the assistance of a helper? Yes. TOILETING - STEP 3: How much assistance does the patient require from the helper? Only supervision TOILETING - SCORE: 5-SUP BLADDER MANAGEMENT: BLADDER MANAGEMENT - STEP 1: Does the patient control the bladder completely and intentionally without equipment or devices or med ications, and is always continent? No. BLADDER MANAGEMENT - STEP 2: Does the patient require the assistance of a helper? No, patient only requires extra time BLADDER MANAGEMENT - SCORE: 6-JADE BLADDER MANAGEMENT - FREQUENCY OF ACCIDENTS: BLADDER MANAGEMENT(FA) - STEP 1: How many accidents has the patient had during the current shift? 0 BOWEL MANAGEMENT: BOWEL MANAGEMENT - STEP 1: Does the patient control bowels completely and intentionally without equipment devices or medications AND is always continent? No. BOWEL MANAGEMENT - STEP 2: Does the patient require the assistance of a helper? No, patient requires extra time BOWEL MANAGEMENT - SCORE: 6-JADE BOWEL MANAGEMENT - FREQUENCY OF ACCIDENTS: BOWEL MANAGEMENT(FA) - STEP 1: How many accidents has the patient had during the current shift? 0 TRANSFERS: BED, CHAIR, WHEELCHAIR: TRANSFERS: BED, CHAIR, WHEELCHAIR - STEP 1: Does the patient require assistance of a person or device, or need extra time with bed, chair, or whe elchair transfers? Yes. TRANSFERS: BED, CHAIR, WHEELCHAIR - STEP 2: Does the patient require the assistance of a helper? No. Patient only requires an assistive device fo r bed, chair, wheelchair transfers such as a sliding board, grab bar, or brace, OR s/he takes more th an reasonable time, OR there is a safety concern when s/he performs the transfers TRANSFERS: BED, CHAIR, WHEELCHAIR - SCORE: 6-JADE TRANSFERS: TOILET: TRANSFERS: TOILET - STEP 1: Does the patient require the assistance of a person or device, or need extra time with toilet transfe rs? Yes. TRANSFERS: TOILET - STEP 2: Does the patient require the assistance of a helper? No. Patient only requires an assistive device liu ch as a grab bar or special seat, OR s/he takes more than reasonable time to perform toilet transfers , OR there is a safety concern when s/he performs toilet transfers. TRANSFERS: TOILET - SCORE: 6-JADE TRANSFERS: SHOWER: Activity did not occur on this shift TRANSFERS: SHOWER - SCORE: 0-UNK TRANSFERS: TUB: Activity did not occur on this shift TRANSFERS: TUB - SCORE: 0-UNK LOCOMOTION: WALK: Activity did not occur on this shift LOCOMOTION: WALK - SCORE: 0-UNK LOCOMOTION: WHEELCHAIR: Activity did not occur on this shift LOCOMOTION: WHEELCHAIR - SCORE: 0-UNK COMPREHENSION: COMPREHENSION: TYPE: Both COMPREHENSION - STEP 1: Does the patient require help from a person or device, or need extra time to understand complex and a bstract ideas (such as current events, finances, discharge planning, medical issues, relationships, e tc)? Yes. COMPREHENSION - STEP 2: Does the patient require help to understand questions or statements about basic needs or ideas (such as hunger, thirst, sleep, safety, daily schedule, room location, or discomfort) half or more of the t cassandra? No. COMPREHENSION - STEP 3: How often does the patient need help to understand directions and conversation about basic needs? Les s than 10% of the time COMPREHENSION - SCORE: 5-SUP EXPRESSION EXPRESSION: TYPE: Both EXPRESSION - STEP 1: Does the patient require help from a person or device, or need extra time expressing complex and abst ract ideas (such as current events, finances, discharge planning, medical issues, relationships, etc) ? Yes. EXPRESSION - STEP 2: Does the patient require help to express basic necessities or ideas (such as hunger, thirst, sleep, s afety, daily schedule, room location, or discomfort) half or more of the time? No. EXPRESSION - STEP 3: How often does the patient need help to express directions and conversation about basic needs? 10-24% of the time EXPRESSION - SCORE: 4-MIN SOCIAL INTERACTION: SOCIAL INTERACTION - STEP 1: Does the patient require a helper to interact with others in social and therapeutic situations? Yes. SOCIAL INTERACTION - STEP 2: Does the patient interact appropriately half or more of the time? Yes. SOCIAL INTERACTION - STEP 3: How often does the patient need help to interact appropriately? Less than 10% of the time SOCIAL INTERACTION - SCORE: 5-SUP PROBLEM SOLVING: PROBLEM SOLVING - STEP 1: Does the patient need help from a person or device, or need extra time to solve complex problems such as managing a checking account or confronting interpersonal problems? Yes. PROBLEM SOLVING - STEP 2: Does the patient solve basic routine problems half or more of the time? Yes. PROBLEM SOLVING - STEP 3: How often does the patient need help to solve basic routine problems? 10%-24% of the time PROBLEM SOLVING - SCORE: 4-MIN MEMORY: MEMORY - STEP 1: Does the patient need help from a person or device, or need extra time to remember frequently encount ered people, daily routines, and executing requests? Yes. MEMORY - STEP 2: How often does the patient need help to remember frequently encountered people, daily routines, and e xecuting requests? 10% - 24% of the time MEMORY - SCORE: 4-MIN SIGNATURE PANEL: The following modified sections: Eating - Score, Grooming - Score, Bathing - Score, Dressing - Upper Body - Score, Dressing - Lower Body - Score, Toileting - Score, Bladder Management - Score, Bowel Man agement - Score, Transfers: Bed, Chair, Wheelchair - Score, Transfers: Toilet - Score, Transfers: Mary wer - Score, Transfers: Tub - Score, Locomotion: Walk - Score, Locomotion: Wheelchair - Score, Compre hension - Score, Expression - Score, Social Interaction - Score, Problem Solving - Score, Memory - Sc ore were [electronically] signed by Tisha Smith C.N.A. on TueOct 10 2018 14:05:32 GMT-0500 ([place] Day[place])
--- NOTE | 2018-10-10 14:53 | FAST ---
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 Jose Terry M.D. ADMISSION DIAGNOSIS: - Stroke 01 - Left Body (Right Brain) (01.1) Right Basal Ganglia Acute Infarct. EATING: Activity did not occur on this shift EATING - SCORE: 0-UNK GROOMING: Activity did not occur on this shift GROOMING - SCORE: 0-UNK BATHING: Activity did not occur on this shift BATHING - SCORE: 0-UNK DRESSING - UPPER BODY: Activity did not occur on this shift Patient is not dressing in public clothing ARTICLES SCORE Total number of steps: 0 DRESSING - UPPER BODY - SCORE: 0-UNK DRESSING - LOWER BODY: Activity did not occur on this shift Patient is not dressing in public clothing ARTICLES SCORE Total number of steps: 0 DRESSING - LOWER BODY - SCORE: 0-UNK TOILETING: Activity did not occur on this shift TOILETING - SCORE: 0-UNK BLADDER MANAGEMENT: Activity did not occur on this shift BLADDER MANAGEMENT - SCORE: 7-IND BOWEL MANAGEMENT: Activity did not occur on this shift BOWEL MANAGEMENT - SCORE: 7-IND TRANSFERS: BED, CHAIR, WHEELCHAIR: TRANSFERS: BED, CHAIR, WHEELCHAIR - STEP 1: Does the patient require assistance of a person or device, or need extra time with bed, chair, or whe elchair transfers? Yes. TRANSFERS: BED, CHAIR, WHEELCHAIR - STEP 2: Does the patient require the assistance of a helper? No. Patient only requires an assistive device fo r bed, chair, wheelchair transfers such as a sliding board, grab bar, or brace, OR s/he takes more th an reasonable time, OR there is a safety concern when s/he performs the transfers TRANSFERS: BED, CHAIR, WHEELCHAIR - SCORE: 6-JADE TRANSFERS: TOILET: TRANSFERS: TOILET - STEP 1: Does the patient require the assistance of a person or device, or need extra time with toilet transfe rs? Yes. TRANSFERS: TOILET - STEP 2: Does the patient require the assistance of a helper? No. Patient only requires an assistive device liu ch as a grab bar or special seat, OR s/he takes more than reasonable time to perform toilet transfers , OR there is a safety concern when s/he performs toilet transfers. TRANSFERS: TOILET - SCORE: 6-JADE TRANSFERS: SHOWER: Activity did not occur on this shift TRANSFERS: SHOWER - SCORE: 0-UNK TRANSFERS: TUB: Activity did not occur on this shift TRANSFERS: TUB - SCORE: 0-UNK LOCOMOTION: WALK: LOCOMOTION: WALK - STEP 1: Does the patient need help from a person or device, or need extra time to walk 150 feet? Yes. LOCOMOTION: WALK - STEP 2: How much assistance does the patient require to walk a minimum of 150 feet? Only supervision, cuing, or coaxing LOCOMOTION: WALK - SCORE: 5-SUP LOCOMOTION: WHEELCHAIR: Activity did not occur on this shift LOCOMOTION: WHEELCHAIR - SCORE: 0-UNK LOCOMOTION: STAIRS: LOCOMOTION: STAIRS - STEP 1: Does the patient need help to go up and down 12 to 14 stairs? Yes. LOCOMOTION: STAIRS - STEP 2: How much assistance does the patient need from the helper to go a minimum of 12 to 14 stairs? Only in cidental help such as contact guarding or steadying LOCOMOTION: STAIRS - SCORE: 4-MIN COMPREHENSION: COMPREHENSION - SCORE: 0-UNK EXPRESSION EXPRESSION - SCORE: 0-UNK SOCIAL INTERACTION: SOCIAL INTERACTION - SCORE: 0-UNK PROBLEM SOLVING: PROBLEM SOLVING - SCORE: 0-UNK MEMORY: MEMORY - SCORE: 0-UNK SIGNATURE PANEL: The following modified sections: Transfers: Bed, Chair, Wheelchair - Score, Transfers: Toilet - Score , Locomotion: Walk - Score, Locomotion: Wheelchair - Score, Locomotion: Stairs - Score were [garo anaya] signed by Winsome Marin PTA on TueOct 10 2018 14:52:44 GMT-0500 (Central Daylight Time)
[2018-10-10] MEDS: NITROFURAN MACRO 100 MG CAP PO SCH (17:10)
[2018-10-10] MEDS: ATORVASTATIN 40 MG TAB PO SCH (20:13)
--- NOTE | 2018-10-11 01:19 | FAST ---
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 Jose Terry M.D. ADMISSION DIAGNOSIS: - Stroke 01 - Left Body (Right Brain) (01.1) Right Basal Ganglia Acute Infarct. EATING: Activity did not occur on this shift EATING - SCORE: 0-UNK GROOMING: Activity did not occur on this shift GROOMING - SCORE: 0-UNK BATHING: Activity did not occur on this shift BATHING - SCORE: 0-UNK DRESSING - UPPER BODY: Patient is not dressing in public clothing ARTICLES SCORE Total number of steps: 0 DRESSING - UPPER BODY - SCORE: 0-UNK DRESSING - LOWER BODY: Patient is not dressing in public clothing ARTICLES SCORE Total number of steps: 0 DRESSING - LOWER BODY - SCORE: 0-UNK TOILETING: TOILETING - STEP 1: Does the patient require the assistance of a person or device, or need extra time with toileting? Yes . TOILETING - STEP 2: Does the patient require the assistance of a helper? Yes. TOILETING - STEP 3: How much assistance does the patient require from the helper? Only supervision TOILETING - SCORE: 5-SUP BLADDER MANAGEMENT: BLADDER MANAGEMENT - STEP 1: Does the patient control the bladder completely and intentionally without equipment or devices or med ications, and is always continent? Yes. BLADDER MANAGEMENT - SCORE: 7-IND BOWEL MANAGEMENT: Activity did not occur on this shift BOWEL MANAGEMENT - SCORE: 7-IND TRANSFERS: BED, CHAIR, WHEELCHAIR: TRANSFERS: BED, CHAIR, WHEELCHAIR - STEP 1: Does the patient require assistance of a person or device, or need extra time with bed, chair, or whe elchair transfers? Yes. TRANSFERS: BED, CHAIR, WHEELCHAIR - STEP 2: Does the patient require the assistance of a helper? Yes. TRANSFERS: BED, CHAIR, WHEELCHAIR - STEP 3: How much assistance does the patient require from the helper? Only supervision TRANSFERS: BED, CHAIR, WHEELCHAIR - SCORE: 5-SUP TRANSFERS: TOILET: TRANSFERS: TOILET - STEP 1: Does the patient require the assistance of a person or device, or need extra time with toilet transfe rs? Yes. TRANSFERS: TOILET - STEP 2: Does the patient require the assistance of a helper? Yes. TRANSFERS: TOILET - STEP 3: How much assistance does the patient require from the helper? Only supervision, cuing, coaxing, OR he lp to set out transfer equipment or to lock brakes and/or lift foot rests TRANSFERS: TOILET - SCORE: 5-SUP TRANSFERS: SHOWER: Activity did not occur on this shift TRANSFERS: SHOWER - SCORE: 0-UNK TRANSFERS: TUB: Activity did not occur on this shift TRANSFERS: TUB - SCORE: 0-UNK LOCOMOTION: WALK: Activity did not occur on this shift LOCOMOTION: WALK - SCORE: 0-UNK LOCOMOTION: WHEELCHAIR: Activity did not occur on this shift LOCOMOTION: WHEELCHAIR - SCORE: 0-UNK COMPREHENSION: COMPREHENSION: TYPE: Both COMPREHENSION - STEP 1: Does the patient require help from a person or device, or need extra time to understand complex and a bstract ideas (such as current events, finances, discharge planning, medical issues, relationships, e tc)? No. COMPREHENSION - STEP 2: Does the patient need extra time, require an assistive device (such as glasses for visual comprehensi on or a hearing aid for auditory comprehension) or does s/he have mild difficulty understanding compl ex and abstract information? Yes. COMPREHENSION - SCORE: 6-JADE EXPRESSION EXPRESSION: TYPE: Both EXPRESSION - STEP 1: Does the patient require help from a person or device, or need extra time expressing complex and abst ract ideas (such as current events, finances, discharge planning, medical issues, relationships, etc) ? No. EXPRESSION - STEP 2: Does the patient need extra time, require an assistive device (such as augmentive communication syste m or a communication board), OR does s/he have mild difficulty expressing complex and abstract ideas (including mild dysarthria or mild word-find problems)? No. EXPRESSION - SCORE: 7-IND SOCIAL INTERACTION: SOCIAL INTERACTION - STEP 1: Does the patient require a helper to interact with others in social and therapeutic situations? No. SOCIAL INTERACTION - STEP 2: Does the patient need extra time in social situations, OR does s/he interact with staff, other patien ts, and family members ONLY in structured environments, OR does s/he require medication for social in teraction? No. SOCIAL INTERACTION - SCORE: 7-IND PROBLEM SOLVING: Patient requires bed/chair alarms due to attempts to get up unassisted when helper is needed. PROBLEM SOLVING - STEP 1: How often do the bed/chair alarms go off? Occasionally - the alarms go off about 25% or less PROBLEM SOLVING - SCORE: 4-MIN MEMORY: MEMORY - STEP 1: How often do the bed/chair alarms go off? Occasionally - the alarms go off about 25% of the time or l ess MEMORY - SCORE: 4-MIN SIGNATURE PANEL: The following modified sections: Eating - Score, Grooming - Score, Bathing - Score, Dressing - Upper Body - Score, Dressing - Lower Body - Score, Toileting - Score, Bladder Management - Score, Bowel Man agement - Score, Transfers: Bed, Chair, Wheelchair - Score, Transfers: Toilet - Score, Transfers: Mary wer - Score, Transfers: Tub - Score, Locomotion: Walk - Score, Locomotion: Wheelchair - Score, Compre hension - Score, Expression - Score, Social Interaction - Score, Problem Solving - Score, Memory - Sc ore were [electronically] signed by Yelena Sánchez CNA on TueOct 11 2018 01:17:56 T-0500 ([place] Da ylight Time)
[2018-10-11] MEDS: METOPROLOL TAR 25 MG TAB PO SCH ×2 (05:18→17:15)
[2018-10-11] MEDS: LEVOTHYROXINE SOD 0.025 MG TAB PO SCH (06:56)
[2018-10-11] MEDS: DULOXETINE 20 MG CAP PO SCH (08:36)
[2018-10-11] MEDS: NITROFURAN MACRO 100 MG CAP PO SCH ×2 (08:36→17:15)
[2018-10-11] MEDS: FOLIC ACID 1 MG TABLET PO SCH (08:36)
[2018-10-11] MEDS: CRANBERRY FRUIT EXTRACT 200 MG CAP PO SCH ×2 (08:36→19:16)
[2018-10-11] MEDS: ASPIRIN EC 81 MG TAB PO SCH (08:36)
[2018-10-11] MEDS: APIXABAN 5 MG TABLET PO SCH ×2 (08:37→19:16)
[2018-10-11] MEDS: cloNIDine HCl 0.1 MG TAB PO SCH ×2 (08:37→19:16)
[2018-10-11] MEDS: VITAMIN B12 3000 MCG SL SCH (08:37)
[2018-10-11] MEDS: MULTIVITAMINS,THERAPEUT 1 TAB PO SCH (09:15)
--- NOTE | 2018-10-11 13:35 | FAST ---
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 Jose Terry M.D. ADMISSION DIAGNOSIS: - Stroke 01 - Left Body (Right Brain) (01.1) Right Basal Ganglia Acute Infarct. EATING: Activity did not occur on this shift EATING - SCORE: 0-UNK GROOMING: Activity did not occur on this shift GROOMING - SCORE: 0-UNK BATHING: Activity did not occur on this shift BATHING - SCORE: 0-UNK DRESSING - UPPER BODY: Activity did not occur on this shift Patient is not dressing in public clothing ARTICLES SCORE Total number of steps: 0 DRESSING - UPPER BODY - SCORE: 0-UNK DRESSING - LOWER BODY: Activity did not occur on this shift Patient is not dressing in public clothing ARTICLES SCORE Total number of steps: 0 DRESSING - LOWER BODY - SCORE: 0-UNK TOILETING: Activity did not occur on this shift TOILETING - SCORE: 0-UNK BLADDER MANAGEMENT: Activity did not occur on this shift BLADDER MANAGEMENT - SCORE: 7-IND BOWEL MANAGEMENT: Activity did not occur on this shift BOWEL MANAGEMENT - SCORE: 7-IND TRANSFERS: BED, CHAIR, WHEELCHAIR: TRANSFERS: BED, CHAIR, WHEELCHAIR - STEP 1: Does the patient require assistance of a person or device, or need extra time with bed, chair, or whe elchair transfers? Yes. TRANSFERS: BED, CHAIR, WHEELCHAIR - STEP 2: Does the patient require the assistance of a helper? No. Patient only requires an assistive device fo r bed, chair, wheelchair transfers such as a sliding board, grab bar, or brace, OR s/he takes more th an reasonable time, OR there is a safety concern when s/he performs the transfers TRANSFERS: BED, CHAIR, WHEELCHAIR - SCORE: 6-JADE TRANSFERS: TOILET: TRANSFERS: TOILET - STEP 1: Does the patient require the assistance of a person or device, or need extra time with toilet transfe rs? No. TRANSFERS: TOILET - SCORE: 7-IND TRANSFERS: SHOWER: Activity did not occur on this shift TRANSFERS: SHOWER - SCORE: 0-UNK TRANSFERS: TUB: Activity did not occur on this shift TRANSFERS: TUB - SCORE: 0-UNK LOCOMOTION: WALK: LOCOMOTION: WALK - STEP 1: Does the patient need help from a person or device, or need extra time to walk 150 feet? Yes. LOCOMOTION: WALK - STEP 2: How much assistance does the patient require to walk a minimum of 150 feet? Only supervision, cuing, or coaxing LOCOMOTION: WALK - SCORE: 5-SUP LOCOMOTION: WHEELCHAIR: Activity did not occur on this shift LOCOMOTION: WHEELCHAIR - SCORE: 0-UNK LOCOMOTION: STAIRS: Activity did not occur on this shift LOCOMOTION: STAIRS - SCORE: 0-UNK COMPREHENSION: COMPREHENSION - SCORE: 0-UNK EXPRESSION EXPRESSION - SCORE: 0-UNK SOCIAL INTERACTION: SOCIAL INTERACTION - SCORE: 0-UNK PROBLEM SOLVING: PROBLEM SOLVING - SCORE: 0-UNK MEMORY: MEMORY - SCORE: 0-UNK SIGNATURE PANEL: The following modified sections: Transfers: Bed, Chair, Wheelchair - Score, Transfers: Toilet - Score , Locomotion: Walk - Score, Locomotion: Wheelchair - Score, Locomotion: Stairs - Score were [electron jaclyn] signed by Winsome Marin PTA on TueOct 11 2018 13:34:54 GMT-0500 (Central Daylight Time)
--- NOTE | 2018-10-11 14:07 | FAST ---
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 Jose Terry M.D. ADMISSION DIAGNOSIS: - Stroke 01 - Left Body (Right Brain) (01.1) Right Basal Ganglia Acute Infarct. EATING: EATING - STEP 1: Does the patient require the assistance of a person or device, or need extra time when eating? Yes. EATING - STEP 2: Does the patient require the assistance of a helper? No, patient only requires an assistive device, O R s/he takes more than reasonable time to eat, OR there is a safety concern, OR s/he requires modifie d food consistency EATING - SCORE: 6-JADE GROOMING: Comb/brush hair Oral care GROOMING - STEP 1: Does the patient require the assistance of a person or device, or need extra time when grooming? No. GROOMING - SCORE: 7-IND BATHING: Activity did not occur on this shift BATHING - SCORE: 0-UNK DRESSING - UPPER BODY: Activity did not occur on this shift ARTICLES SCORE Total number of steps: 0 DRESSING - UPPER BODY - SCORE: 0-UNK DRESSING - LOWER BODY: Activity did not occur on this shift ARTICLES SCORE Total number of steps: 0 DRESSING - LOWER BODY - SCORE: 0-UNK TOILETING: TOILETING - STEP 1: Does the patient require the assistance of a person or device, or need extra time with toileting? Yes . TOILETING - STEP 2: Does the patient require the assistance of a helper? No. TOILETING - SCORE: 6-JADE BLADDER MANAGEMENT: BLADDER MANAGEMENT - STEP 1: Does the patient control the bladder completely and intentionally without equipment or devices or med ications, and is always continent? No. BLADDER MANAGEMENT - STEP 2: Does the patient require the assistance of a helper? No, patient requires and independently uses an a ssistive device, such as a urinal, bedpan, bedside commode, catheter, absorbent pad, or collecting de vice BLADDER MANAGEMENT - SCORE: 6-JADE BOWEL MANAGEMENT: BOWEL MANAGEMENT - STEP 1: Does the patient control bowels completely and intentionally without equipment devices or medications AND is always continent? No. BOWEL MANAGEMENT - STEP 2: Does the patient require the assistance of a helper? No, patient requires and manages independently a n assistive device such as a bedpan, bedside commode, absorbent pad, incontinent device, or collectin g device BOWEL MANAGEMENT - SCORE: 6-JADE TRANSFERS: BED, CHAIR, WHEELCHAIR: TRANSFERS: BED, CHAIR, WHEELCHAIR - STEP 1: Does the patient require assistance of a person or device, or need extra time with bed, chair, or whe elchair transfers? Yes. TRANSFERS: BED, CHAIR, WHEELCHAIR - STEP 2: Does the patient require the assistance of a helper? No. Patient only requires an assistive device fo r bed, chair, wheelchair transfers such as a sliding board, grab bar, or brace, OR s/he takes more th an reasonable time, OR there is a safety concern when s/he performs the transfers TRANSFERS: BED, CHAIR, WHEELCHAIR - SCORE: 6-JADE TRANSFERS: TOILET: TRANSFERS: TOILET - STEP 1: Does the patient require the assistance of a person or device, or need extra time with toilet transfe rs? Yes. TRANSFERS: TOILET - STEP 2: Does the patient require the assistance of a helper? No. Patient only requires an assistive device liu ch as a grab bar or special seat, OR s/he takes more than reasonable time to perform toilet transfers , OR there is a safety concern when s/he performs toilet transfers. TRANSFERS: TOILET - SCORE: 6-JADE TRANSFERS: SHOWER: Activity did not occur on this shift TRANSFERS: SHOWER - SCORE: 0-UNK TRANSFERS: TUB: Activity did not occur on this shift TRANSFERS: TUB - SCORE: 0-UNK LOCOMOTION: WALK: Activity did not occur on this shift LOCOMOTION: WALK - SCORE: 0-UNK LOCOMOTION: WHEELCHAIR: Activity did not occur on this shift LOCOMOTION: WHEELCHAIR - SCORE: 0-UNK COMPREHENSION: COMPREHENSION: TYPE: Both COMPREHENSION - STEP 1: Does the patient require help from a person or device, or need extra time to understand complex and a bstract ideas (such as current events, finances, discharge planning, medical issues, relationships, e tc)? No. COMPREHENSION - STEP 2: Does the patient need extra time, require an assistive device (such as glasses for visual comprehensi on or a hearing aid for auditory comprehension) or does s/he have mild difficulty understanding compl ex and abstract information? Yes. COMPREHENSION - SCORE: 6-JADE EXPRESSION EXPRESSION: TYPE: Both EXPRESSION - STEP 1: Does the patient require help from a person or device, or need extra time expressing complex and abst ract ideas (such as current events, finances, discharge planning, medical issues, relationships, etc) ? Yes. EXPRESSION - STEP 2: Does the patient require help to express basic necessities or ideas (such as hunger, thirst, sleep, s afety, daily schedule, room location, or discomfort) half or more of the time? No. EXPRESSION - STEP 3: How often does the patient need help to express directions and conversation about basic needs? Less t mcelroy 10% of the time EXPRESSION - SCORE: 5-SUP SOCIAL INTERACTION: SOCIAL INTERACTION - STEP 1: Does the patient require a helper to interact with others in social and therapeutic situations? No. SOCIAL INTERACTION - STEP 2: Does the patient need extra time in social situations, OR does s/he interact with staff, other patien ts, and family members ONLY in structured environments, OR does s/he require medication for social in teraction? Yes, patient needs extra time SOCIAL INTERACTION - SCORE: 6-JADE PROBLEM SOLVING: PROBLEM SOLVING - STEP 1: Does the patient need help from a person or device, or need extra time to solve complex problems such as managing a checking account or confronting interpersonal problems? No. PROBLEM SOLVING - STEP 2: Does the patient require extra time to make decisions or solve problems, OR does s/he have slight dif ficulty reading, initiating, or self-correcting in unfamiliar situations? Yes, patient needs extra ti me. PROBLEM SOLVING - SCORE: 6-JADE MEMORY: MEMORY - STEP 1: Does the patient need help from a person or device, or need extra time to remember frequently encount ered people, daily routines, and executing requests? No. MEMORY - STEP 2: Does the patient have slight difficulty recognizing frequently encountered people, daily routines, or executing requests without the need for repetition or using self-initiated or environmental cues to remember? Yes. MEMORY - SCORE: 6-JADE SIGNATURE PANEL: The following modified sections: Eating - Score, Grooming - Score, Bathing - Score, Dressing - Upper Body - Score, Dressing - Lower Body - Score, Toileting - Score, Bladder Management - Score, Bowel Man agement - Score, Transfers: Bed, Chair, Wheelchair - Score, Transfers: Toilet - Score, Transfers: Mary wer - Score, Transfers: Tub - Score, Locomotion: Walk - Score, Locomotion: Wheelchair - Score, Compre hension - Score, Expression - Score, Social Interaction - Score, Problem Solving - Score, Memory - Sc ore were [electronically] signed by Shaheen Wills on TueOct 11 2018 14:06:46 GMT-0500 (Central Daylight Time)
--- NOTE | 2018-10-11 18:05 | R.PN ---
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 SUBJECTIVE: Pt denied any Shortness of Breath. Pt denied any depression. Ambulated 1100' with modified independence without assistive device. Now on macrobid 100 mg twice ilana ly for 5 days from 319 for E.Coli UTI. VITAL SIGNS Temperature: 97.7 F SBP/DBP: 149/67 Pulse: 72 Resp: 14 MEDICATION ALLERGIES: Penicillin ENVIRONMENTAL ALLERGIES: None Known - Substance Allergies None Known - Other Allergies None Known NURSING: - Shower allowing shower - Bladder care per protocol - Skin care per protocol PRECAUTIONS: - Weight Bearing Precaution WBAT left LE ACTIVITIES OOB only with supervision THERAPIES: - Occupational Therapy Evaluate and Treat. Visual Perceptual Training. Cognitive Retraining. - Speech Therapy Cognitive Training. Memory Strategies. Speech Intelligibility Training. Expressive Language Skills. R eceptive Language Skills. - Physical Therapy Evaluate and Treat. PHYSICAL EXAM - Gen Alert and awake Lying in bed No apparent distress Oriented to: person, time, and place - Skin No breakdown No abnormalities - Eyes No abnormalities - ENMT No abnormalities - Neck No abnormalities - CVS RRR - Chest Clear - Resp Clear to auscultation - Abd +bowel sounds - GI Soft Deferred - No abnormalities - Ext No significant edema - MSK 4+/5 weakness in left and right lower extremity - Neuro 4/5 strength left upper and lower extremities. - Psych No abnormalities ASSESSMENT: Pt. is a 82 yo Right-handed white female.On 10/05/2018 Pt. presented to [facility] with sudden onset of left-side weakness.On 10/05/2018 she was admitted to [facility] with diagnosis Right Basal Ganglia Acute Infarct.Her impairment category is Stroke 01 - Le ft Body (Right Brain) (01.1).Pre-morbidly, Pt. was independent/mod-I in Self-Care, Sphincter Control, Transfers Control, Locomotion, Communication, and Social Cognition; and she had good Sphincter Contr ol.Currently, she has deficits of Locomotion, Communication, Social Cognition, Endurance, Balance, Sa fety Awareness, Transfers Control, and Self-Care.Pt. is now referred to [facility] for acute in-patient rehabilitation in order to maximize patient's functional independence in ac tivities of daily living, strength, ROM, and mobility.- Rehab Goal Patient has realistic goal of being discharged at assistance level 6-Dharmesh to reside at Home with Fam roberto/Relatives. MDM/PLAN: - Physical Therapy Gait dysfunction - to improve, our physical therapists will perform initial evaluation of pt's statu s upon admission and devise an individualized program for Gait Training, and Wheel Chair mobility Inability to transfer - to improve, our physical therapists will perform initial evaluation of pt's status upon admission and devise an individualized program for Bed mobility Need for home safety evaluation - to improve, our physical therapists will perform initial evaluatio n of pt's status upon admission and devise an individualized program for Home Evaluation Need in caregiver upon discharge - to improve, our physical therapists will perform initial evaluati on of pt's status upon admission and devise an individualized program for Caregiver Training New precaution - to improve, our physical therapists will perform initial evaluation of pt's status upon admission and devise an individualized program for Patient precaution education Edema - to improve, our physical therapists will perform initial evaluation of pt's status upon admis samanta and devise an individualized program for Elevation Training, and Lymphedema Therapy Poor balance - to improve, our physical therapists will perform initial evaluation of pt's status up on admission and devise an individualized program for Balance Training Poor endurance - to improve, our physical therapists will perform initial evaluation of pt's status upon admission and devise an individualized program for Endurance Training Weakness - to improve, our physical therapists will perform initial evaluation of pt's status upon a dmission and devise an individualized program for Aquatic Therapy, Neuromuscular Reeducation, and Str engthening Achieving independence - to improve, our physical therapists will perform initial evaluation of pt's status upon admission and devise an individualized program for Community Reintegration Activities - Occupational Therapy ADL deficits - to improve, our occupation therapists will perform initial evaluation of pt's status upon admission and devise an individualized program for Bathing, Bed mobility, Community Reintegratio n, Cooking, Dressing, Eating, Fine Motor Skills, Grooming, Homemaking, Kitchen Mobility, Laundry, Pat ient Education, Safety Awareness, Splinting - Positioning, Transfers(Toilet, Tub, Shower), and Wheel Chair Management Cognitive deficits - to improve, our occupation therapists will perform initial evaluation of pt's s tatus upon admission and devise an individualized program for Cognition - orientation Need for health care aide - to improve, our occupation therapists will perform initial evaluation of pt's status upon admission and devise an individualized program for Caregiver Training Weakness - to improve, our occupation therapists will perform initial evaluation of pt's status upon admission and devise an individualized program for Aquatic Therapy, Balance, Endurance, UE ROM, and UE strengthening - Diet Type Continue Regular - Diet - Liquid Texture Continue Regular - Tube Feed Continue N/A - Bladder care per protocol - Weight Bearing Precaution WBAT left LE - Skin care per protocol - Diet - Solid Texture Continue Regular - Shower allowing shower for Dementia, TBI, Stroke, or others FUNCTIONAL STATUS: UPDATED AT WEEKLY TEAM CONFERENCE - Bladder Same accident frequency: 7-Ind - No accidents in the past 7 days - Bowel Same accident frequency: 7-Ind - No accidents in the past 7 days - Walking Same score based on distance walked: 3(>=150ft) - Wheelchair Same score based on distance traveled: 0(N/A) FUNCTIONAL STATUS: - Self-Care A. Eating Ind B. Grooming Ind C. Bathing sup D. Dressing - Upper [place] E. Dressing - Lower modA F. Toileting modA - Sphincter Control G: Bladder control Ind H: Bowel control Ind - Transfers Control I. Bed/Chair/Wheelchair Dharmesh J. Toilet Terrance K. Tub/Shower ADNO - Locomotion L. Walk/Wheelchair (C) CGA L. Walk/Wheelchair (W) CGA M. Stairs ADNO - Communication N. Comprehension (B) sup O. Expression (B) sup - Social Cognition P. Social Interaction sup Q. Problem Solving sup R. Memory sup - Endurance Fair - Balance Fair - Safety Awareness Fair CURRENT FUNC. DEFICITS: Locomotion, Communication, Social Cognition, Endurance, Balance, Safety Awareness, Transfers Control, and Self-Care SIGNATURE PANEL: (CDT)
[2018-10-11] MEDS: ATORVASTATIN 40 MG TAB PO SCH (20:09)
--- NOTE | 2018-10-12 01:51 | FAST ---
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 Jose Terry M.D. ADMISSION DIAGNOSIS: - Stroke 01 - Left Body (Right Brain) (01.1) Right Basal Ganglia Acute Infarct. EATING: Activity did not occur on this shift EATING - SCORE: 0-UNK GROOMING: Activity did not occur on this shift GROOMING - SCORE: 0-UNK BATHING: Activity did not occur on this shift BATHING - SCORE: 0-UNK DRESSING - UPPER BODY: Patient is not dressing in public clothing ARTICLES SCORE Total number of steps: 0 DRESSING - UPPER BODY - SCORE: 0-UNK DRESSING - LOWER BODY: Patient is not dressing in public clothing ARTICLES SCORE Total number of steps: 0 DRESSING - LOWER BODY - SCORE: 0-UNK TOILETING: TOILETING - STEP 1: Does the patient require the assistance of a person or device, or need extra time with toileting? Yes . TOILETING - STEP 2: Does the patient require the assistance of a helper? Yes. TOILETING - STEP 3: How much assistance does the patient require from the helper? Only supervision TOILETING - SCORE: 5-SUP BLADDER MANAGEMENT: BLADDER MANAGEMENT - STEP 1: Does the patient control the bladder completely and intentionally without equipment or devices or med ications, and is always continent? Yes. BLADDER MANAGEMENT - SCORE: 7-IND BOWEL MANAGEMENT: Activity did not occur on this shift BOWEL MANAGEMENT - SCORE: 7-IND TRANSFERS: BED, CHAIR, WHEELCHAIR: TRANSFERS: BED, CHAIR, WHEELCHAIR - STEP 1: Does the patient require assistance of a person or device, or need extra time with bed, chair, or whe elchair transfers? Yes. TRANSFERS: BED, CHAIR, WHEELCHAIR - STEP 2: Does the patient require the assistance of a helper? Yes. TRANSFERS: BED, CHAIR, WHEELCHAIR - STEP 3: How much assistance does the patient require from the helper? Only supervision TRANSFERS: BED, CHAIR, WHEELCHAIR - SCORE: 5-SUP TRANSFERS: TOILET: TRANSFERS: TOILET - STEP 1: Does the patient require the assistance of a person or device, or need extra time with toilet transfe rs? Yes. TRANSFERS: TOILET - STEP 2: Does the patient require the assistance of a helper? Yes. TRANSFERS: TOILET - STEP 3: How much assistance does the patient require from the helper? Only supervision, cuing, coaxing, OR he lp to set out transfer equipment or to lock brakes and/or lift foot rests TRANSFERS: TOILET - SCORE: 5-SUP TRANSFERS: SHOWER: Activity did not occur on this shift TRANSFERS: SHOWER - SCORE: 0-UNK TRANSFERS: TUB: Activity did not occur on this shift TRANSFERS: TUB - SCORE: 0-UNK LOCOMOTION: WALK: Activity did not occur on this shift LOCOMOTION: WALK - SCORE: 0-UNK LOCOMOTION: WHEELCHAIR: Activity did not occur on this shift LOCOMOTION: WHEELCHAIR - SCORE: 0-UNK COMPREHENSION: COMPREHENSION: TYPE: Both COMPREHENSION - STEP 1: Does the patient require help from a person or device, or need extra time to understand complex and a bstract ideas (such as current events, finances, discharge planning, medical issues, relationships, e tc)? No. COMPREHENSION - STEP 2: Does the patient need extra time, require an assistive device (such as glasses for visual comprehensi on or a hearing aid for auditory comprehension) or does s/he have mild difficulty understanding compl ex and abstract information? Yes. COMPREHENSION - SCORE: 6-JADE EXPRESSION EXPRESSION: TYPE: Both EXPRESSION - STEP 1: Does the patient require help from a person or device, or need extra time expressing complex and abst ract ideas (such as current events, finances, discharge planning, medical issues, relationships, etc) ? No. EXPRESSION - STEP 2: Does the patient need extra time, require an assistive device (such as augmentive communication syste m or a communication board), OR does s/he have mild difficulty expressing complex and abstract ideas (including mild dysarthria or mild word-find problems)? No. EXPRESSION - SCORE: 7-IND SOCIAL INTERACTION: SOCIAL INTERACTION - STEP 1: Does the patient require a helper to interact with others in social and therapeutic situations? No. SOCIAL INTERACTION - STEP 2: Does the patient need extra time in social situations, OR does s/he interact with staff, other patien ts, and family members ONLY in structured environments, OR does s/he require medication for social in teraction? No. SOCIAL INTERACTION - SCORE: 7-IND PROBLEM SOLVING: PROBLEM SOLVING - STEP 1: Does the patient need help from a person or device, or need extra time to solve complex problems such as managing a checking account or confronting interpersonal problems? No. PROBLEM SOLVING - STEP 2: Does the patient require extra time to make decisions or solve problems, OR does s/he have slight dif ficulty reading, initiating, or self-correcting in unfamiliar situations? No. PROBLEM SOLVING - SCORE: 7-IND MEMORY: MEMORY - STEP 1: Does the patient need help from a person or device, or need extra time to remember frequently encount ered people, daily routines, and executing requests? No. MEMORY - STEP 2: Does the patient have slight difficulty recognizing frequently encountered people, daily routines, or executing requests without the need for repetition or using self-initiated or environmental cues to remember? No. MEMORY - SCORE: 7-IND SIGNATURE PANEL: The following modified sections: Eating - Score, Grooming - Score, Bathing - Score, Dressing - Upper Body - Score, Dressing - Lower Body - Score, Toileting - Score, Bladder Management - Score, Bowel Man agement - Score, Transfers: Bed, Chair, Wheelchair - Score, Transfers: Toilet - Score, Transfers: Mary wer - Score, Transfers: Tub - Score, Locomotion: Walk - Score, Locomotion: Wheelchair - Score, Compre hension - Score, Expression - Score, Social Interaction - Score, Problem Solving - Score, Memory - Sc ore were [electronically] signed by Yelena Sánchez CNA on TueOct 12 2018 01:50:29 T-0500 ([place] Da ylight Time)
[2018-10-12] MEDS: METOPROLOL TAR 25 MG TAB PO SCH ×2 (05:05→17:06)
[2018-10-12 06:39] LABS: Absolute Lymphocytes (CBC) 1.2 K/uL (0.7-4.9); Absolute Monocytes 0.6 K/uL (0.1-1.3); Absolute Neutrophil 4.8 K/uL (1.8-8.0); Basophils % 0.7 % (0-1.3); Eosinophils % 1.7 % (0-4.4); Hematocrit 42.1 % (36.0-45.0); Lymphocytes % 17.5 % (15.3-44.8); MPV 10.3 fL (7.6-11.3); Monocytes % 8.9 % (3.3-12.3); RBC Red Blood Cell Count 4.57 M/uL (3.86-4.86)
[2018-10-12] MEDS: LEVOTHYROXINE SOD 0.025 MG TAB PO SCH (06:51)
[2018-10-12 06:57] LABS: Albumin 3.1 g/dL (3.4-5.0); Potassium 4.1 mmol/L (3.5-5.1); Prealbumin 14.2 mg/dL (20-40)
[2018-10-12] MEDS: MULTIVITAMINS,THERAPEUT 1 TAB PO SCH (08:38)
[2018-10-12] MEDS: CRANBERRY FRUIT EXTRACT 200 MG CAP PO SCH ×2 (08:39→19:40)
[2018-10-12] MEDS: DULOXETINE 20 MG CAP PO SCH (08:39)
[2018-10-12] MEDS: cloNIDine HCl 0.1 MG TAB PO SCH ×2 (08:39→19:41)
[2018-10-12] MEDS: NITROFURAN MACRO 100 MG CAP PO SCH ×2 (08:39→17:06)
[2018-10-12] MEDS: APIXABAN 5 MG TABLET PO SCH ×2 (08:40→19:41)
[2018-10-12] MEDS: ASPIRIN EC 81 MG TAB PO SCH (08:40)
[2018-10-12] MEDS: FOLIC ACID 1 MG TABLET PO SCH (08:40)
[2018-10-12] MEDS: VITAMIN B12 3000 MCG SL SCH (08:40)
--- NOTE | 2018-10-12 11:19 | FAST ---
SHIFT START DATE/TIME: 10/12/2018 07:00 (CDT) SHIFT END DATE/TIME: 10/12/2018 19:00 (CDT) NAME NEL HUI DATE OF : 1935 DATE OF ADMISSION: 10/06/2018 21:26 (WEB MARKETING COORDINATOR) PHONE: AGE: 82 SSN# [id number] GENDER: Female ENCOUNTER PHYSICIAN: Dr. Jose Terry M.D. ADMISSION DIAGNOSIS: - Stroke 01 - Left Body (Right Brain) (01.1) Right Basal Ganglia Acute Infarct. EATING: EATING - STEP 1: Does the patient require the assistance of a person or device, or need extra time when eating? No. EATING - SCORE: 7-IND GROOMING: Comb/brush hair Oral care Patient applied make-up GROOMING - STEP 1: Does the patient require the assistance of a person or device, or need extra time when grooming? No. GROOMING - SCORE: 7-IND BATHING: Activity did not occur on this shift BATHING - SCORE: 0-UNK DRESSING - UPPER BODY: Bra (three steps) Sweater (four steps) T-shirt/pullover shirt (four steps) ARTICLES SCORE Total number of steps: 11 DRESSING - UPPER BODY - STEP 1: Does the patient require help from a person or device, or need extra time when dressing above the jose st? Yes. DRESSING - UPPER BODY - STEP 2: Does the patient require the assistance of a helper? No. Patient only requires an assistive device, s uch as a button hook, velcro, or olive picker. OR s/he takes more than reasonable time as s/he dresses the upper body. OR there is a concern for safety when s/he dresses the upper body DRESSING - UPPER BODY - SCORE: 6-JADE DRESSING - LOWER BODY: ARTICLES SCORE Total number of steps: 12 DRESSING - LOWER BODY - STEP 1: Does the patient require help from a person or device, or need extra time when dressing below the jose st? Yes. DRESSING - LOWER BODY - STEP 2: Does the patient require the assistance of a helper? No. Patient requires an assistive device such as a olive picker. OR s/he takes more than reasonable time as s/he dresses the lower body, OR there is a con cern for safety when s/he dresses the lower body DRESSING - LOWER BODY - SCORE: 6-JADE TOILETING: TOILETING - STEP 1: Does the patient require the assistance of a person or device, or need extra time with toileting? Yes . TOILETING - STEP 2: Does the patient require the assistance of a helper? Yes. TOILETING - STEP 3: How much assistance does the patient require from the helper? Only supervision TOILETING - SCORE: 5-SUP BLADDER MANAGEMENT: BLADDER MANAGEMENT - STEP 1: Does the patient control the bladder completely and intentionally without equipment or devices or med ications, and is always continent? Yes. BLADDER MANAGEMENT - SCORE: 7-IND BOWEL MANAGEMENT: Activity did not occur on this shift BOWEL MANAGEMENT - SCORE: 7-IND TRANSFERS: BED, CHAIR, WHEELCHAIR: TRANSFERS: BED, CHAIR, WHEELCHAIR - STEP 1: Does the patient require assistance of a person or device, or need extra time with bed, chair, or whe elchair transfers? Yes. TRANSFERS: BED, CHAIR, WHEELCHAIR - STEP 2: Does the patient require the assistance of a helper? No. Patient only requires an assistive device fo r bed, chair, wheelchair transfers such as a sliding board, grab bar, or brace, OR s/he takes more th an reasonable time, OR there is a safety concern when s/he performs the transfers TRANSFERS: BED, CHAIR, WHEELCHAIR - SCORE: 6-JADE TRANSFERS: TOILET: TRANSFERS: TOILET - STEP 1: Does the patient require the assistance of a person or device, or need extra time with toilet transfe rs? Yes. TRANSFERS: TOILET - STEP 2: Does the patient require the assistance of a helper? No. Patient only requires an assistive device liu ch as a grab bar or special seat, OR s/he takes more than reasonable time to perform toilet transfers , OR there is a safety concern when s/he performs toilet transfers. TRANSFERS: TOILET - SCORE: 6-JADE TRANSFERS: SHOWER: Activity did not occur on this shift TRANSFERS: SHOWER - SCORE: 0-UNK TRANSFERS: TUB: Activity did not occur on this shift TRANSFERS: TUB - SCORE: 0-UNK LOCOMOTION: WALK: Activity did not occur on this shift LOCOMOTION: WALK - SCORE: 0-UNK LOCOMOTION: WHEELCHAIR: Activity did not occur on this shift LOCOMOTION: WHEELCHAIR - SCORE: 0-UNK COMPREHENSION: COMPREHENSION: TYPE: Both COMPREHENSION - STEP 1: Does the patient require help from a person or device, or need extra time to understand complex and a bstract ideas (such as current events, finances, discharge planning, medical issues, relationships, e tc)? No. COMPREHENSION - STEP 2: Does the patient need extra time, require an assistive device (such as glasses for visual comprehensi on or a hearing aid for auditory comprehension) or does s/he have mild difficulty understanding compl ex and abstract information? Yes. COMPREHENSION - SCORE: 6-JADE EXPRESSION EXPRESSION: TYPE: Both EXPRESSION - STEP 1: Does the patient require help from a person or device, or need extra time expressing complex and abst ract ideas (such as current events, finances, discharge planning, medical issues, relationships, etc) ? No. EXPRESSION - STEP 2: Does the patient need extra time, require an assistive device (such as augmentive communication syste m or a communication board), OR does s/he have mild difficulty expressing complex and abstract ideas (including mild dysarthria or mild word-find problems)? Yes. EXPRESSION - SCORE: 6-JADE SOCIAL INTERACTION: SOCIAL INTERACTION - STEP 1: Does the patient require a helper to interact with others in social and therapeutic situations? No. SOCIAL INTERACTION - STEP 2: Does the patient need extra time in social situations, OR does s/he interact with staff, other patien ts, and family members ONLY in structured environments, OR does s/he require medication for social in teraction? Yes, patient needs extra time SOCIAL INTERACTION - SCORE: 6-JADE PROBLEM SOLVING: PROBLEM SOLVING - STEP 1: Does the patient need help from a person or device, or need extra time to solve complex problems such as managing a checking account or confronting interpersonal problems? No. PROBLEM SOLVING - STEP 2: Does the patient require extra time to make decisions or solve problems, OR does s/he have slight dif ficulty reading, initiating, or self-correcting in unfamiliar situations? Yes, patient needs extra ti me. PROBLEM SOLVING - SCORE: 6-JADE MEMORY: MEMORY - STEP 1: Does the patient need help from a person or device, or need extra time to remember frequently encount ered people, daily routines, and executing requests? No. MEMORY - STEP 2: Does the patient have slight difficulty recognizing frequently encountered people, daily routines, or executing requests without the need for repetition or using self-initiated or environmental cues to remember? Yes. MEMORY - SCORE: 6-JADE SIGNATURE PANEL: The following modified sections: Eating - Score, Grooming - Score, Bathing - Score, Dressing - Upper Body - Score, Dressing - Lower Body - Score, Toileting - Score, Bladder Management - Score, Bowel Man agement - Score, Transfers: Bed, Chair, Wheelchair - Score, Transfers: Toilet - Score, Transfers: Mary wer - Score, Transfers: Tub - Score, Locomotion: Walk - Score, Locomotion: Wheelchair - Score, Compre hension - Score, Expression - Score, Social Interaction - Score, Problem Solving - Score, Memory - Sc ore were [electronically] signed by Shaheen Wills on TueOct 12 2018 11:18:15 GMT-0500 (Central Daylight Time)
--- NOTE | 2018-10-12 13:37 | FAST ---
ENCOUNTER DATE AND TIME: 10/12/2018 08:00 (CDT) NAME NEL HUI DATE OF : 1935 DATE OF ADMISSION: 10/06/2018 21:26 (PROMOTIONS ASSISTANT) PHONE: AGE: 82 SSN# [id number] GENDER: Female ENCOUNTER PHYSICIAN: Dr. Jose Terry M.D. ADMISSION DIAGNOSIS: - Stroke 01 - Left Body (Right Brain) (01.1) Right Basal Ganglia Acute Infarct. EATING: Activity did not occur on this shift EATING - SCORE: 0-UNK GROOMING: Activity did not occur on this shift GROOMING - SCORE: 0-UNK BATHING: Activity did not occur on this shift BATHING - SCORE: 0-UNK DRESSING - UPPER BODY: Activity did not occur on this shift Patient is not dressing in public clothing ARTICLES SCORE Total number of steps: 0 DRESSING - UPPER BODY - SCORE: 0-UNK DRESSING - LOWER BODY: Activity did not occur on this shift Patient is not dressing in public clothing ARTICLES SCORE Total number of steps: 0 DRESSING - LOWER BODY - SCORE: 0-UNK TOILETING: Activity did not occur on this shift TOILETING - SCORE: 0-UNK BLADDER MANAGEMENT: Activity did not occur on this shift BLADDER MANAGEMENT - SCORE: 7-IND BOWEL MANAGEMENT: Activity did not occur on this shift BOWEL MANAGEMENT - SCORE: 7-IND TRANSFERS: BED, CHAIR, WHEELCHAIR: TRANSFERS: BED, CHAIR, WHEELCHAIR - STEP 1: Does the patient require assistance of a person or device, or need extra time with bed, chair, or whe elchair transfers? Yes. TRANSFERS: BED, CHAIR, WHEELCHAIR - STEP 2: Does the patient require the assistance of a helper? No. Patient only requires an assistive device fo r bed, chair, wheelchair transfers such as a sliding board, grab bar, or brace, OR s/he takes more th an reasonable time, OR there is a safety concern when s/he performs the transfers TRANSFERS: BED, CHAIR, WHEELCHAIR - SCORE: 6-JADE TRANSFERS: TOILET: TRANSFERS: TOILET - STEP 1: Does the patient require the assistance of a person or device, or need extra time with toilet transfe rs? Yes. TRANSFERS: TOILET - STEP 2: Does the patient require the assistance of a helper? No. Patient only requires an assistive device liu ch as a grab bar or special seat, OR s/he takes more than reasonable time to perform toilet transfers , OR there is a safety concern when s/he performs toilet transfers. TRANSFERS: TOILET - SCORE: 6-JADE TRANSFERS: SHOWER: Activity did not occur on this shift TRANSFERS: SHOWER - SCORE: 0-UNK TRANSFERS: TUB: Activity did not occur on this shift TRANSFERS: TUB - SCORE: 0-UNK LOCOMOTION: WALK: LOCOMOTION: WALK - STEP 1: Does the patient need help from a person or device, or need extra time to walk 150 feet? No. LOCOMOTION: WALK - STEP 2: Does the patient need an assistive device (such as an orthosis, prosthesis, crutches, or walker) to g o 150 feet, OR does s/he take more than reasonable time, OR is there a concern for safety? Yes, there is a safety concern LOCOMOTION: WALK - SCORE: 6-JADE LOCOMOTION: WHEELCHAIR: Activity did not occur on this shift LOCOMOTION: WHEELCHAIR - SCORE: 0-UNK LOCOMOTION: STAIRS: Activity did not occur on this shift LOCOMOTION: STAIRS - SCORE: 0-UNK COMPREHENSION: COMPREHENSION - SCORE: 0-UNK EXPRESSION EXPRESSION - SCORE: 0-UNK SOCIAL INTERACTION: SOCIAL INTERACTION - SCORE: 0-UNK PROBLEM SOLVING: PROBLEM SOLVING - SCORE: 0-UNK MEMORY: MEMORY - SCORE: 0-UNK SIGNATURE PANEL: The following modified sections: Transfers: Bed, Chair, Wheelchair - Score, Transfers: Toilet - Score , Locomotion: Walk - Score, Locomotion: Wheelchair - Score, Locomotion: Stairs - Score were [garo anaya] signed by Winsome Marin PTA on TueOct 12 2018 13:37:47 GMT-0500 (Central Daylight Time)
[2018-10-12] MEDS: PROMOD 30 ML DOSE PO SCH (19:41)
[2018-10-12] MEDS: ATORVASTATIN 40 MG TAB PO SCH (21:25)
--- NOTE | 2018-10-13 01:58 | FAST ---
SHIFT START DATE/TIME: 10/12/2018 19:00 (CDT) SHIFT END DATE/TIME: 10/13/2018 07:00 (CDT) NAME NEL HUI DATE OF : 1935 DATE OF ADMISSION: 10/06/2018 21:26 (ROLLER INSPECTOR AND MENDER) PHONE: AGE: 82 SSN# [id number] GENDER: Female ENCOUNTER PHYSICIAN: Dr. Jose Terry M.D. ADMISSION DIAGNOSIS: - Stroke 01 - Left Body (Right Brain) (01.1) Right Basal Ganglia Acute Infarct. EATING: Activity did not occur on this shift EATING - SCORE: 0-UNK GROOMING: Activity did not occur on this shift GROOMING - SCORE: 0-UNK BATHING: Activity did not occur on this shift BATHING - SCORE: 0-UNK DRESSING - UPPER BODY: Patient is not dressing in public clothing ARTICLES SCORE Total number of steps: 0 DRESSING - UPPER BODY - SCORE: 0-UNK DRESSING - LOWER BODY: Patient is not dressing in public clothing ARTICLES SCORE Total number of steps: 0 DRESSING - LOWER BODY - SCORE: 0-UNK TOILETING: TOILETING - STEP 1: Does the patient require the assistance of a person or device, or need extra time with toileting? Yes . TOILETING - STEP 2: Does the patient require the assistance of a helper? Yes. TOILETING - STEP 3: How much assistance does the patient require from the helper? Only supervision TOILETING - SCORE: 5-SUP BLADDER MANAGEMENT: BLADDER MANAGEMENT - STEP 1: Does the patient control the bladder completely and intentionally without equipment or devices or med ications, and is always continent? Yes. BLADDER MANAGEMENT - SCORE: 7-IND BOWEL MANAGEMENT: Activity did not occur on this shift BOWEL MANAGEMENT - SCORE: 7-IND TRANSFERS: BED, CHAIR, WHEELCHAIR: TRANSFERS: BED, CHAIR, WHEELCHAIR - STEP 1: Does the patient require assistance of a person or device, or need extra time with bed, chair, or whe elchair transfers? Yes. TRANSFERS: BED, CHAIR, WHEELCHAIR - STEP 2: Does the patient require the assistance of a helper? Yes. TRANSFERS: BED, CHAIR, WHEELCHAIR - STEP 3: How much assistance does the patient require from the helper? Only supervision TRANSFERS: BED, CHAIR, WHEELCHAIR - SCORE: 5-SUP TRANSFERS: TOILET: TRANSFERS: TOILET - STEP 1: Does the patient require the assistance of a person or device, or need extra time with toilet transfe rs? Yes. TRANSFERS: TOILET - STEP 2: Does the patient require the assistance of a helper? Yes. TRANSFERS: TOILET - STEP 3: How much assistance does the patient require from the helper? Only supervision, cuing, coaxing, OR he lp to set out transfer equipment or to lock brakes and/or lift foot rests TRANSFERS: TOILET - SCORE: 5-SUP TRANSFERS: SHOWER: Activity did not occur on this shift TRANSFERS: SHOWER - SCORE: 0-UNK TRANSFERS: TUB: Activity did not occur on this shift TRANSFERS: TUB - SCORE: 0-UNK LOCOMOTION: WALK: Activity did not occur on this shift LOCOMOTION: WALK - SCORE: 0-UNK LOCOMOTION: WHEELCHAIR: Activity did not occur on this shift LOCOMOTION: WHEELCHAIR - SCORE: 0-UNK COMPREHENSION: COMPREHENSION: TYPE: Both COMPREHENSION - STEP 1: Does the patient require help from a person or device, or need extra time to understand complex and a bstract ideas (such as current events, finances, discharge planning, medical issues, relationships, e tc)? No. COMPREHENSION - STEP 2: Does the patient need extra time, require an assistive device (such as glasses for visual comprehensi on or a hearing aid for auditory comprehension) or does s/he have mild difficulty understanding compl ex and abstract information? Yes. COMPREHENSION - SCORE: 6-JADE EXPRESSION EXPRESSION: TYPE: Both EXPRESSION - STEP 1: Does the patient require help from a person or device, or need extra time expressing complex and abst ract ideas (such as current events, finances, discharge planning, medical issues, relationships, etc) ? No. EXPRESSION - STEP 2: Does the patient need extra time, require an assistive device (such as augmentive communication syste m or a communication board), OR does s/he have mild difficulty expressing complex and abstract ideas (including mild dysarthria or mild word-find problems)? No. EXPRESSION - SCORE: 7-IND SOCIAL INTERACTION: SOCIAL INTERACTION - STEP 1: Does the patient require a helper to interact with others in social and therapeutic situations? No. SOCIAL INTERACTION - STEP 2: Does the patient need extra time in social situations, OR does s/he interact with staff, other patien ts, and family members ONLY in structured environments, OR does s/he require medication for social in teraction? No. SOCIAL INTERACTION - SCORE: 7-IND PROBLEM SOLVING: PROBLEM SOLVING - STEP 1: Does the patient need help from a person or device, or need extra time to solve complex problems such as managing a checking account or confronting interpersonal problems? No. PROBLEM SOLVING - STEP 2: Does the patient require extra time to make decisions or solve problems, OR does s/he have slight dif ficulty reading, initiating, or self-correcting in unfamiliar situations? No. PROBLEM SOLVING - SCORE: 7-IND MEMORY: MEMORY - STEP 1: Does the patient need help from a person or device, or need extra time to remember frequently encount ered people, daily routines, and executing requests? No. MEMORY - STEP 2: Does the patient have slight difficulty recognizing frequently encountered people, daily routines, or executing requests without the need for repetition or using self-initiated or environmental cues to remember? No. MEMORY - SCORE: 7-IND SIGNATURE PANEL: The following modified sections: Eating - Score, Grooming - Score, Bathing - Score, Dressing - Upper Body - Score, Dressing - Lower Body - Score, Toileting - Score, Bladder Management - Score, Bowel Man agement - Score, Transfers: Bed, Chair, Wheelchair - Score, Transfers: Toilet - Score, Transfers: Mary wer - Score, Transfers: Tub - Score, Locomotion: Walk - Score, Locomotion: Wheelchair - Score, Compre hension - Score, Social Interaction - Score, Problem Solving - Score, Memory - Score, Expression - Sc ore were [electronically] signed by Yelena Sánchez CNA on TueOct 13 2018 01:57:55 T-0500 ([place] Da ylight Time)
[2018-10-13] MEDS: METOPROLOL TAR 25 MG TAB PO SCH ×2 (05:00→17:48)
[2018-10-13] MEDS: cloNIDine HCl 0.1 MG TAB PO SCH ×2 (07:39→20:10)
[2018-10-13] MEDS: CRANBERRY FRUIT EXTRACT 200 MG CAP PO SCH ×2 (07:39→20:09)
[2018-10-13] MEDS: PROMOD 30 ML DOSE PO SCH ×2 (07:40→20:10)
[2018-10-13] MEDS: LEVOTHYROXINE SOD 0.025 MG TAB PO SCH (07:40)
[2018-10-13] MEDS: MULTIVITAMINS,THERAPEUT 1 TAB PO SCH (07:40)
[2018-10-13] MEDS: ASPIRIN EC 81 MG TAB PO SCH (07:40)
[2018-10-13] MEDS: APIXABAN 5 MG TABLET PO SCH ×2 (07:40→20:10)
[2018-10-13] MEDS: NITROFURAN MACRO 100 MG CAP PO SCH ×2 (07:40→17:48)
[2018-10-13] MEDS: DULOXETINE 20 MG CAP PO SCH (07:40)
[2018-10-13] MEDS: FOLIC ACID 1 MG TABLET PO SCH (07:44)
[2018-10-13] MEDS: VITAMIN B12 3000 MCG SL SCH (08:00)
--- NOTE | 2018-10-13 10:12 | P.RH.PN ---
Estimated Length of Stay: 12 Expected Discharge Date: 10/17/18 Discharge Disposition Plan: Home Family Support: Yes Senior Care Goal: Mobility, Transfers, Self Care Vital Signs: Last Vital Signs Temp 98.1 F 10/13/18 07:42 Pulse 64 10/13/18 07:42 Resp 16 10/13/18 07:42 BP 152/71 H 10/13/18 07:42 Pulse Ox 97 10/13/18 07:42 Laboratory: Laboratory Last Values WBC 6.7 K/uL (4.3-10.9) D 10/12/18 06:06 RBC 4.57 M/uL (3.86-4.86) 10/12/18 06:06 Hgb 14.1 g/dL (12.0-15.0) 10/12/18 06:06 Hct 42.1 % (36.0-45.0) 10/12/18 06:06 MCV 92.2 fL (80-100) 10/12/18 06:06 MCH 30.8 pg (27.0-35.0) 10/12/18 06:06 MCHC 33.4 g/dL (32.0-36.0) 10/12/18 06:06 RDW 13.7 % (12.1-15.2) 10/12/18 06:06 Plt Count 192 K/uL (152-406) 10/12/18 06:06 MPV 10.3 fL (7.6-11.3) 10/12/18 06:06 Neutrophils % 71.2 % (41.7-73.7) 10/12/18 06:06 Lymphocytes % 17.5 % (15.3-44.8) 10/12/18 06:06 Monocytes % 8.9 % (3.3-12.3) 10/12/18 06:06 Eosinophils % 1.7 % (0-4.4) 10/12/18 06:06 Basophils % 0.7 % (0-1.3) 10/12/18 06:06 Absolute Neutrophils 4.8 K/uL (1.8-8.0) 10/12/18 06:06 Absolute Lymphocytes 1.2 K/uL (0.7-4.9) 10/12/18 06:06 Absolute Monocytes 0.6 K/uL (0.1-1.3) 10/12/18 06:06 Absolute Eosinophils 0.1 K/uL (0-0.5) 10/12/18 06:06 Absolute Basophils 0.0 K/uL (0-0.5) 10/12/18 06:06 Sodium 140 mmol/L (136-145) 10/12/18 06:06 Potassium 4.1 mmol/L (3.5-5.1) 10/12/18 06:06 Chloride 107 mmol/L (98-107) 10/12/18 06:06 Carbon Dioxide 29 mmol/L (21-32) 10/12/18 06:06 BUN 18 mg/dL (7-18) 10/12/18 06:06 Creatinine 0.83 mg/dL (0.55-1.3) 10/12/18 06:06 Estimated GFR 66 mL/min (=/>90) L 10/12/18 06:06 Glucose 86 mg/dL (74-106) 10/12/18 06:06 Calcium 8.9 mg/dL (8.5-10.1) 10/12/18 06:06 Magnesium 2.0 mg/dL (1.8-2.4) 10/07/18 05:29 Albumin 3.1 g/dL (3.4-5.0) L 10/12/18 06:06 Prealbumin 14.2 mg/dL (20-40) L 10/12/18 06:06 Urine Color Yellow 10/07/18 00:00 Urine Appearance Cloudy 10/07/18 00:00 Urine pH 6.0 (5.0-7.0) 10/07/18 00:00 Ur Specific [place] 1.010 (1.005-1.030) 10/07/18 00:00 Urine Ketones Negative (NEG) 10/07/18 00:00 Urine Blood 3+ (NEG) H 10/07/18 00:00 Urine Nitrite Positive (NEG) H 10/07/18 00:00 Urine Bilirubin Negative (NEG) 10/07/18 00:00 Urine Urobilinogen 1.0 mg/dL (0.2-1.0) 10/07/18 00:00 Ur Leukocyte Esterase 3+ (NEG) H 10/07/18 00:00 Urine RBC <5 /HPF (NONE SEEN) 10/07/18 00:00 Urine WBC >50 /HPF (<5) H 10/07/18 00:00 Ur Squamous Epith Cells 5-10 /HPF (NONE SEEN) H 10/07/18 00:00 Ur Urothelial Cells <5 /HPF (NONE SEEN) 10/07/18 00:00 Urine Bacteria >50 /HPF (<20) H 10/07/18 00:00 Urine Culture Reflexed Not needed 10/07/18 00:00 Urine Glucose Negative (NEG) 10/07/18 00:00 Urine Total Protein Negative (NEG) 10/07/18 00:00 Weight: 155 lb Wound Present: No Closed Surgical Incision Present: No Negative Pressure Wound Therapy Present: No Physician Update: Labs have been reviewed and are normal except mildly low 14.2. She is on macrobid for UTI. She is doing well with physical and occupational therapy by she has poor safety awareness. She forgot to turn off the stove while cooking. She is getting lost to and from her room on the unit. She will need to be discharged home with 24 hour supervision for safety awareness. Medical Issues: DVt Prophylaxis - Eliquis 5mg BID Pain Issues: Tylenol 500mg Q4H PRN Speech Therapy Update: Patient has made significant progress towards short and long-term goals related to her overall cognition (attention, memory, problem solving). Despite frequent c/o fatigue patient is cooperative, alert, and motivated to participate throughout treatment sessions. She occasionally requires repeated or simplified instruction for complex auditory information. However, she demonstrates the ability to comprehend and execute 2-step instructions, solve verbal problems, identify cause/effect, and identify safety risks in hypothetical scenarios. Due to significant fatigue patient exhibits attention (focused and divided) and STM deficits, requiring frequent reminders. However, given extra time to respond patient is generally able to recognize and correct her own errors. Due to fluctuating confusion, inattention, and frequent lapses in memory patient requires 24-hr supervision at home, at least initially, in order to ensure safety. She is at SUPV for auditory comprehension , MOD I for verbal expression, MOD I for social interaction, SUPV for problem solving and MOD A for memory. Summary: Patient's care plan and mcc goals have been reviewed and revised as necessary. Please see the Rehabilitation Signature page for all necessary signatures.
--- NOTE | 2018-10-13 11:16 | FAST ---
SHIFT START DATE/TIME: 10/13/2018 07:00 (CDT) SHIFT END DATE/TIME: 10/13/2018 19:00 (CDT) NAME NEL HUI DATE OF : 1935 DATE OF ADMISSION: 10/06/2018 21:26 (WINEMAKER) PHONE: AGE: 82 SSN# [id number] GENDER: Female ENCOUNTER PHYSICIAN: Dr. Jose Terry M.D. ADMISSION DIAGNOSIS: - Stroke 01 - Left Body (Right Brain) (01.1) Right Basal Ganglia Acute Infarct. EATING: EATING - STEP 1: Does the patient require the assistance of a person or device, or need extra time when eating? Yes. EATING - STEP 2: Does the patient require the assistance of a helper? No, patient only requires an assistive device, O R s/he takes more than reasonable time to eat, OR there is a safety concern, OR s/he requires modifie d food consistency EATING - SCORE: 6-JADE GROOMING: Comb/brush hair Oral care Wash, rinse, and dry face Wash, rinse, and dry hands GROOMING - STEP 1: Does the patient require the assistance of a person or device, or need extra time when grooming? Yes. GROOMING - STEP 2: Does the patient require the assistance of a helper? No. The patient only requires an assistive devic e, OR takes more than reasonable time to groom, OR there is a concern for safety as the patient groom s GROOMING - SCORE: 6-JADE BATHING: Activity did not occur on this shift BATHING - SCORE: 0-UNK DRESSING - UPPER BODY: Bra (three steps) T-shirt/pullover shirt (four steps) ARTICLES SCORE Total number of steps: 7 DRESSING - UPPER BODY - STEP 1: Does the patient require help from a person or device, or need extra time when dressing above the jose st? Yes. DRESSING - UPPER BODY - STEP 2: Does the patient require the assistance of a helper? No. Patient only requires an assistive device, s uch as a button hook, velcro, or cerner analyst. OR s/he takes more than reasonable time as s/he dresses the upper body. OR there is a concern for safety when s/he dresses the upper body DRESSING - UPPER BODY - SCORE: 6-JADE DRESSING - LOWER BODY: Elastic waist pants (three steps) Sock - Left foot (one step) Sock - Right foot (one step) Tied or buckled shoe - Left foot (two steps) Tied or buckled shoe - Right foot (two steps) Underwear (three steps) Zippered pants (four steps) ARTICLES SCORE Total number of steps: 16 DRESSING - LOWER BODY - STEP 1: Does the patient require help from a person or device, or need extra time when dressing below the jose st? Yes. DRESSING - LOWER BODY - STEP 2: Does the patient require the assistance of a helper? No. Patient requires an assistive device such as a cerner analyst. OR s/he takes more than reasonable time as s/he dresses the lower body, OR there is a con cern for safety when s/he dresses the lower body DRESSING - LOWER BODY - SCORE: 6-JADE TOILETING: TOILETING - STEP 1: Does the patient require the assistance of a person or device, or need extra time with toileting? Yes . TOILETING - STEP 2: Does the patient require the assistance of a helper? No. TOILETING - SCORE: 6-JADE BLADDER MANAGEMENT: BLADDER MANAGEMENT - STEP 1: Does the patient control the bladder completely and intentionally without equipment or devices or med ications, and is always continent? Yes. BLADDER MANAGEMENT - SCORE: 7-IND BLADDER MANAGEMENT - FREQUENCY OF ACCIDENTS: BLADDER MANAGEMENT(FA) - STEP 1: How many accidents has the patient had during the current shift? 0 BOWEL MANAGEMENT: BOWEL MANAGEMENT - STEP 1: Does the patient control bowels completely and intentionally without equipment devices or medications AND is always continent? Yes. BOWEL MANAGEMENT - SCORE: 7-IND BOWEL MANAGEMENT - FREQUENCY OF ACCIDENTS: BOWEL MANAGEMENT(FA) - STEP 1: How many accidents has the patient had during the current shift? 0 TRANSFERS: BED, CHAIR, WHEELCHAIR: TRANSFERS: BED, CHAIR, WHEELCHAIR - STEP 1: Does the patient require assistance of a person or device, or need extra time with bed, chair, or whe elchair transfers? No. TRANSFERS: BED, CHAIR, WHEELCHAIR - SCORE: 7-IND TRANSFERS: TOILET: TRANSFERS: TOILET - STEP 1: Does the patient require the assistance of a person or device, or need extra time with toilet transfe rs? No. TRANSFERS: TOILET - SCORE: 7-IND TRANSFERS: SHOWER: Activity did not occur on this shift TRANSFERS: SHOWER - SCORE: 0-UNK TRANSFERS: TUB: Activity did not occur on this shift TRANSFERS: TUB - SCORE: 0-UNK LOCOMOTION: WALK: LOCOMOTION: WALK - STEP 1: Does the patient need help from a person or device, or need extra time to walk 150 feet? Yes. LOCOMOTION: WALK - STEP 2: How much assistance does the patient require to walk a minimum of 150 feet? Only supervision, cuing, or coaxing LOCOMOTION: WALK - SCORE: 5-SUP LOCOMOTION: WHEELCHAIR: Activity did not occur on this shift LOCOMOTION: WHEELCHAIR - SCORE: 0-UNK COMPREHENSION: COMPREHENSION: TYPE: Both COMPREHENSION - STEP 1: Does the patient require help from a person or device, or need extra time to understand complex and a bstract ideas (such as current events, finances, discharge planning, medical issues, relationships, e tc)? No. COMPREHENSION - STEP 2: Does the patient need extra time, require an assistive device (such as glasses for visual comprehensi on or a hearing aid for auditory comprehension) or does s/he have mild difficulty understanding compl ex and abstract information? Yes. COMPREHENSION - SCORE: 6-JADE EXPRESSION EXPRESSION: TYPE: Both EXPRESSION - STEP 1: Does the patient require help from a person or device, or need extra time expressing complex and abst ract ideas (such as current events, finances, discharge planning, medical issues, relationships, etc) ? No. EXPRESSION - STEP 2: Does the patient need extra time, require an assistive device (such as augmentive communication syste m or a communication board), OR does s/he have mild difficulty expressing complex and abstract ideas (including mild dysarthria or mild word-find problems)? Yes. EXPRESSION - SCORE: 6-JADE SOCIAL INTERACTION: SOCIAL INTERACTION - STEP 1: Does the patient require a helper to interact with others in social and therapeutic situations? No. SOCIAL INTERACTION - STEP 2: Does the patient need extra time in social situations, OR does s/he interact with staff, other patien ts, and family members ONLY in structured environments, OR does s/he require medication for social in teraction? Yes, patient needs extra time SOCIAL INTERACTION - SCORE: 6-JADE PROBLEM SOLVING: PROBLEM SOLVING - STEP 1: Does the patient need help from a person or device, or need extra time to solve complex problems such as managing a checking account or confronting interpersonal problems? No. PROBLEM SOLVING - STEP 2: Does the patient require extra time to make decisions or solve problems, OR does s/he have slight dif ficulty reading, initiating, or self-correcting in unfamiliar situations? Yes, patient needs extra ti me. PROBLEM SOLVING - SCORE: 6-JADE MEMORY: MEMORY - STEP 1: Does the patient need help from a person or device, or need extra time to remember frequently encount ered people, daily routines, and executing requests? No. MEMORY - STEP 2: Does the patient have slight difficulty recognizing frequently encountered people, daily routines, or executing requests without the need for repetition or using self-initiated or environmental cues to remember? Yes. MEMORY - SCORE: 6-JADE SIGNATURE PANEL: The following modified sections: Eating - Score, Grooming - Score, Bathing - Score, Dressing - Upper Body - Score, Dressing - Lower Body - Score, Toileting - Score, Bladder Management - Score, Bowel Man agement - Score, Transfers: Bed, Chair, Wheelchair - Score, Transfers: Toilet - Score, Transfers: Mary wer - Score, Transfers: Tub - Score, Locomotion: Walk - Score, Locomotion: Wheelchair - Score, Compre hension - Score, Expression - Score, Social Interaction - Score, Problem Solving - Score, Memory - Sc ore were [electronically] signed by Tisha Smith C.N.A. on TueOct 13 2018 11:15:31 T-0500 (Cent[place] Daylight Time)
--- NOTE | 2018-10-13 15:06 | FAST ---
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 Jose Terry M.D. ADMISSION DIAGNOSIS: - Stroke 01 - Left Body (Right Brain) (01.1) Right Basal Ganglia Acute Infarct. EATING: Activity did not occur on this shift EATING - SCORE: 0-UNK GROOMING: Activity did not occur on this shift GROOMING - SCORE: 0-UNK BATHING: Activity did not occur on this shift BATHING - SCORE: 0-UNK DRESSING - UPPER BODY: Activity did not occur on this shift Patient is not dressing in public clothing ARTICLES SCORE Total number of steps: 0 DRESSING - UPPER BODY - SCORE: 0-UNK DRESSING - LOWER BODY: Activity did not occur on this shift Patient is not dressing in public clothing ARTICLES SCORE Total number of steps: 0 DRESSING - LOWER BODY - SCORE: 0-UNK TOILETING: Activity did not occur on this shift TOILETING - SCORE: 0-UNK BLADDER MANAGEMENT: Activity did not occur on this shift BLADDER MANAGEMENT - SCORE: 7-IND BOWEL MANAGEMENT: Activity did not occur on this shift BOWEL MANAGEMENT - SCORE: 7-IND TRANSFERS: BED, CHAIR, WHEELCHAIR: TRANSFERS: BED, CHAIR, WHEELCHAIR - STEP 1: Does the patient require assistance of a person or device, or need extra time with bed, chair, or whe elchair transfers? Yes. TRANSFERS: BED, CHAIR, WHEELCHAIR - STEP 2: Does the patient require the assistance of a helper? No. Patient only requires an assistive device fo r bed, chair, wheelchair transfers such as a sliding board, grab bar, or brace, OR s/he takes more th an reasonable time, OR there is a safety concern when s/he performs the transfers TRANSFERS: BED, CHAIR, WHEELCHAIR - SCORE: 6-JADE TRANSFERS: TOILET: Activity did not occur on this shift TRANSFERS: TOILET - SCORE: 0-UNK TRANSFERS: SHOWER: Activity did not occur on this shift TRANSFERS: SHOWER - SCORE: 0-UNK TRANSFERS: TUB: Activity did not occur on this shift TRANSFERS: TUB - SCORE: 0-UNK LOCOMOTION: WALK: LOCOMOTION: WALK - STEP 1: Does the patient need help from a person or device, or need extra time to walk 150 feet? No. LOCOMOTION: WALK - STEP 2: Does the patient need an assistive device (such as an orthosis, prosthesis, crutches, or walker) to g o 150 feet, OR does s/he take more than reasonable time, OR is there a concern for safety? Yes, the p atient needs an assistive device LOCOMOTION: WALK - SCORE: 6-JADE LOCOMOTION: WHEELCHAIR: Activity did not occur on this shift LOCOMOTION: WHEELCHAIR - SCORE: 0-UNK LOCOMOTION: STAIRS: LOCOMOTION: STAIRS - STEP 1: Does the patient need help to go up and down 12 to 14 stairs? No. LOCOMOTION: STAIRS - STEP 2: Does the patient require an assistive device - such as handrails or cane - to go up and down one flig ht of stairs, OR does s/he take more than reasonable time, OR is there a concern for safety? Yes, the patient requires an assistive device LOCOMOTION: STAIRS - SCORE: 6-JADE COMPREHENSION: COMPREHENSION - SCORE: 0-UNK EXPRESSION EXPRESSION - SCORE: 0-UNK SOCIAL INTERACTION: SOCIAL INTERACTION - SCORE: 0-UNK PROBLEM SOLVING: PROBLEM SOLVING - SCORE: 0-UNK MEMORY: MEMORY - SCORE: 0-UNK SIGNATURE PANEL: The following modified sections: Transfers: Bed, Chair, Wheelchair - Score, Transfers: Toilet - Score , Locomotion: Walk - Score, Locomotion: Wheelchair - Score, Locomotion: Stairs - Score were [garo anaya] signed by Nguyễn Pillai PTA on TueOct 13 2018 15:06:17 T-0500 (Central Daylight Time)
[2018-10-13] MEDS: ATORVASTATIN 40 MG TAB PO SCH (20:10)
--- NOTE | 2018-10-14 02:10 | FAST ---
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 Jose Terry M.D. ADMISSION DIAGNOSIS: - Stroke 01 - Left Body (Right Brain) (01.1) Right Basal Ganglia Acute Infarct. EATING: Activity did not occur on this shift EATING - SCORE: 0-UNK GROOMING: Activity did not occur on this shift GROOMING - SCORE: 0-UNK BATHING: Activity did not occur on this shift BATHING - SCORE: 0-UNK DRESSING - UPPER BODY: Patient is not dressing in public clothing ARTICLES SCORE Total number of steps: 0 DRESSING - UPPER BODY - SCORE: 0-UNK DRESSING - LOWER BODY: Patient is not dressing in public clothing ARTICLES SCORE Total number of steps: 0 DRESSING - LOWER BODY - SCORE: 0-UNK TOILETING: TOILETING - STEP 1: Does the patient require the assistance of a person or device, or need extra time with toileting? Yes . TOILETING - STEP 2: Does the patient require the assistance of a helper? Yes. TOILETING - STEP 3: How much assistance does the patient require from the helper? Only supervision TOILETING - SCORE: 5-SUP BLADDER MANAGEMENT: BLADDER MANAGEMENT - STEP 1: Does the patient control the bladder completely and intentionally without equipment or devices or med ications, and is always continent? No. BLADDER MANAGEMENT - STEP 2: Does the patient require the assistance of a helper? Yes. BLADDER MANAGEMENT - STEP 3: How much assistance does the patient require from the helper? Only supervision, stand-by, cuing, or c oaxing BLADDER MANAGEMENT - SCORE: 5-SUP BOWEL MANAGEMENT: Activity did not occur on this shift BOWEL MANAGEMENT - SCORE: 7-IND TRANSFERS: BED, CHAIR, WHEELCHAIR: TRANSFERS: BED, CHAIR, WHEELCHAIR - STEP 1: Does the patient require assistance of a person or device, or need extra time with bed, chair, or whe elchair transfers? Yes. TRANSFERS: BED, CHAIR, WHEELCHAIR - STEP 2: Does the patient require the assistance of a helper? Yes. TRANSFERS: BED, CHAIR, WHEELCHAIR - STEP 3: How much assistance does the patient require from the helper? Only supervision TRANSFERS: BED, CHAIR, WHEELCHAIR - SCORE: 5-SUP TRANSFERS: TOILET: TRANSFERS: TOILET - STEP 1: Does the patient require the assistance of a person or device, or need extra time with toilet transfe rs? Yes. TRANSFERS: TOILET - STEP 2: Does the patient require the assistance of a helper? Yes. TRANSFERS: TOILET - STEP 3: How much assistance does the patient require from the helper? Only supervision, cuing, coaxing, OR he lp to set out transfer equipment or to lock brakes and/or lift foot rests TRANSFERS: TOILET - SCORE: 5-SUP TRANSFERS: SHOWER: Activity did not occur on this shift TRANSFERS: SHOWER - SCORE: 0-UNK TRANSFERS: TUB: Activity did not occur on this shift TRANSFERS: TUB - SCORE: 0-UNK LOCOMOTION: WALK: Activity did not occur on this shift LOCOMOTION: WALK - SCORE: 0-UNK LOCOMOTION: WHEELCHAIR: Activity did not occur on this shift LOCOMOTION: WHEELCHAIR - SCORE: 0-UNK COMPREHENSION: COMPREHENSION: TYPE: Both COMPREHENSION - STEP 1: Does the patient require help from a person or device, or need extra time to understand complex and a bstract ideas (such as current events, finances, discharge planning, medical issues, relationships, e tc)? No. COMPREHENSION - STEP 2: Does the patient need extra time, require an assistive device (such as glasses for visual comprehensi on or a hearing aid for auditory comprehension) or does s/he have mild difficulty understanding compl ex and abstract information? Yes. COMPREHENSION - SCORE: 6-JADE EXPRESSION EXPRESSION: TYPE: Both EXPRESSION - STEP 1: Does the patient require help from a person or device, or need extra time expressing complex and abst ract ideas (such as current events, finances, discharge planning, medical issues, relationships, etc) ? No. EXPRESSION - STEP 2: Does the patient need extra time, require an assistive device (such as augmentive communication syste m or a communication board), OR does s/he have mild difficulty expressing complex and abstract ideas (including mild dysarthria or mild word-find problems)? Yes. EXPRESSION - SCORE: 6-JADE SOCIAL INTERACTION: SOCIAL INTERACTION - STEP 1: Does the patient require a helper to interact with others in social and therapeutic situations? No. SOCIAL INTERACTION - STEP 2: Does the patient need extra time in social situations, OR does s/he interact with staff, other patien ts, and family members ONLY in structured environments, OR does s/he require medication for social in teraction? Yes, patient needs extra time SOCIAL INTERACTION - SCORE: 6-JADE PROBLEM SOLVING: PROBLEM SOLVING - STEP 1: Does the patient need help from a person or device, or need extra time to solve complex problems such as managing a checking account or confronting interpersonal problems? No. PROBLEM SOLVING - STEP 2: Does the patient require extra time to make decisions or solve problems, OR does s/he have slight dif ficulty reading, initiating, or self-correcting in unfamiliar situations? Yes, patient needs extra ti me. PROBLEM SOLVING - SCORE: 6-JADE MEMORY: MEMORY - STEP 1: Does the patient need help from a person or device, or need extra time to remember frequently encount ered people, daily routines, and executing requests? No. MEMORY - STEP 2: Does the patient have slight difficulty recognizing frequently encountered people, daily routines, or executing requests without the need for repetition or using self-initiated or environmental cues to remember? Yes. MEMORY - SCORE: 6-JADE
[2018-10-14] MEDS: METOPROLOL TAR 25 MG TAB PO SCH ×2 (05:19→17:12)
[2018-10-14] MEDS: LEVOTHYROXINE SOD 0.025 MG TAB PO SCH (05:20)
[2018-10-14 05:29] VITALS: BMI 25.7
[2018-10-14] MEDS: PROMOD 30 ML DOSE PO SCH ×2 (08:00→20:19)
[2018-10-14] MEDS: DULOXETINE 20 MG CAP PO SCH (08:22)
[2018-10-14] MEDS: VITAMIN B12 3000 MCG SL SCH (08:22)
[2018-10-14] MEDS: FOLIC ACID 1 MG TABLET PO SCH (08:22)
[2018-10-14] MEDS: CRANBERRY FRUIT EXTRACT 200 MG CAP PO SCH ×2 (08:22→20:18)
[2018-10-14] MEDS: APIXABAN 5 MG TABLET PO SCH ×2 (08:23→20:19)
[2018-10-14] MEDS: cloNIDine HCl 0.1 MG TAB PO SCH ×2 (08:23→20:18)
[2018-10-14] MEDS: NITROFURAN MACRO 100 MG CAP PO SCH ×2 (08:23→17:12)
[2018-10-14] MEDS: MULTIVITAMINS,THERAPEUT 1 TAB PO SCH (08:23)
[2018-10-14] MEDS: ASPIRIN EC 81 MG TAB PO SCH (08:23)
--- NOTE | 2018-10-14 15:21 | FAST ---
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 Jose Terry M.D. ADMISSION DIAGNOSIS: - Stroke 01 - Left Body (Right Brain) (01.1) Right Basal Ganglia Acute Infarct. EATING: EATING - STEP 1: Does the patient require the assistance of a person or device, or need extra time when eating? Yes. EATING - STEP 2: Does the patient require the assistance of a helper? No, patient only requires an assistive device, O R s/he takes more than reasonable time to eat, OR there is a safety concern, OR s/he requires modifie d food consistency EATING - SCORE: 6-JADE GROOMING: Comb/brush hair Oral care Wash, rinse, and dry face GROOMING - STEP 1: Does the patient require the assistance of a person or device, or need extra time when grooming? Yes. GROOMING - STEP 2: Does the patient require the assistance of a helper? No. The patient only requires an assistive devic e, OR takes more than reasonable time to groom, OR there is a concern for safety as the patient groom s GROOMING - SCORE: 6-JADE BATHING: Activity did not occur on this shift BATHING - SCORE: 0-UNK DRESSING - UPPER BODY: Bra (three steps) T-shirt/pullover shirt (four steps) ARTICLES SCORE Total number of steps: 7 DRESSING - UPPER BODY - STEP 1: Does the patient require help from a person or device, or need extra time when dressing above the jose st? Yes. DRESSING - UPPER BODY - STEP 2: Does the patient require the assistance of a helper? No. Patient only requires an assistive device, s uch as a button hook, velcro, or direct care professional. OR s/he takes more than reasonable time as s/he dresses the upper body. OR there is a concern for safety when s/he dresses the upper body DRESSING - UPPER BODY - SCORE: 6-JADE DRESSING - LOWER BODY: Elastic waist pants (three steps) Slip-on shoe - Left foot (one step) Slip-on shoe - Right foot (one step) Sock - Left foot (one step) Sock - Right foot (one step) ARTICLES SCORE Total number of steps: 7 DRESSING - LOWER BODY - STEP 1: Does the patient require help from a person or device, or need extra time when dressing below the jose st? Yes. DRESSING - LOWER BODY - STEP 2: Does the patient require the assistance of a helper? No. Patient requires an assistive device such as a direct care professional. OR s/he takes more than reasonable time as s/he dresses the lower body, OR there is a con cern for safety when s/he dresses the lower body DRESSING - LOWER BODY - SCORE: 6-JADE TOILETING: TOILETING - STEP 1: Does the patient require the assistance of a person or device, or need extra time with toileting? Yes . TOILETING - STEP 2: Does the patient require the assistance of a helper? No. TOILETING - SCORE: 6-JADE BLADDER MANAGEMENT: BLADDER MANAGEMENT - STEP 1: Does the patient control the bladder completely and intentionally without equipment or devices or med ications, and is always continent? Yes. BLADDER MANAGEMENT - SCORE: 7-IND BLADDER MANAGEMENT - FREQUENCY OF ACCIDENTS: BLADDER MANAGEMENT(FA) - STEP 1: How many accidents has the patient had during the current shift? 0 BOWEL MANAGEMENT: Activity did not occur on this shift BOWEL MANAGEMENT - SCORE: 7-IND BOWEL MANAGEMENT - FREQUENCY OF ACCIDENTS: BOWEL MANAGEMENT(FA) - STEP 1: How many accidents has the patient had during the current shift? 0 TRANSFERS: BED, CHAIR, WHEELCHAIR: Activity did not occur on this shift TRANSFERS: BED, CHAIR, WHEELCHAIR - SCORE: 0-UNK TRANSFERS: TOILET: TRANSFERS: TOILET - STEP 1: Does the patient require the assistance of a person or device, or need extra time with toilet transfe rs? No. TRANSFERS: TOILET - SCORE: 7-IND TRANSFERS: SHOWER: Activity did not occur on this shift TRANSFERS: SHOWER - SCORE: 0-UNK TRANSFERS: TUB: Activity did not occur on this shift TRANSFERS: TUB - SCORE: 0-UNK LOCOMOTION: WALK: LOCOMOTION: WALK - STEP 1: Does the patient need help from a person or device, or need extra time to walk 150 feet? No. LOCOMOTION: WALK - STEP 2: Does the patient need an assistive device (such as an orthosis, prosthesis, crutches, or walker) to g o 150 feet, OR does s/he take more than reasonable time, OR is there a concern for safety? Yes, there is a safety concern LOCOMOTION: WALK - SCORE: 6-JADE LOCOMOTION: WHEELCHAIR: Activity did not occur on this shift LOCOMOTION: WHEELCHAIR - SCORE: 0-UNK COMPREHENSION: COMPREHENSION: TYPE: Both COMPREHENSION - STEP 1: Does the patient require help from a person or device, or need extra time to understand complex and a bstract ideas (such as current events, finances, discharge planning, medical issues, relationships, e tc)? Yes. COMPREHENSION - STEP 2: Does the patient require help to understand questions or statements about basic needs or ideas (such as hunger, thirst, sleep, safety, daily schedule, room location, or discomfort) half or more of the t cassandra? No. COMPREHENSION - STEP 3: How often does the patient need help to understand directions and conversation about basic needs? Les s than 10% of the time COMPREHENSION - SCORE: 5-SUP EXPRESSION EXPRESSION: TYPE: Both EXPRESSION - STEP 1: Does the patient require help from a person or device, or need extra time expressing complex and abst ract ideas (such as current events, finances, discharge planning, medical issues, relationships, etc) ? No. EXPRESSION - STEP 2: Does the patient need extra time, require an assistive device (such as augmentive communication syste m or a communication board), OR does s/he have mild difficulty expressing complex and abstract ideas (including mild dysarthria or mild word-find problems)? Yes. EXPRESSION - SCORE: 6-JADE SOCIAL INTERACTION: SOCIAL INTERACTION - STEP 1: Does the patient require a helper to interact with others in social and therapeutic situations? No. SOCIAL INTERACTION - STEP 2: Does the patient need extra time in social situations, OR does s/he interact with staff, other patien ts, and family members ONLY in structured environments, OR does s/he require medication for social in teraction? Yes, patient needs extra time SOCIAL INTERACTION - SCORE: 6-JADE PROBLEM SOLVING: PROBLEM SOLVING - STEP 1: Does the patient need help from a person or device, or need extra time to solve complex problems such as managing a checking account or confronting interpersonal problems? No. PROBLEM SOLVING - STEP 2: Does the patient require extra time to make decisions or solve problems, OR does s/he have slight dif ficulty reading, initiating, or self-correcting in unfamiliar situations? Yes, patient needs extra ti me. PROBLEM SOLVING - SCORE: 6-JADE MEMORY: MEMORY - STEP 1: Does the patient need help from a person or device, or need extra time to remember frequently encount ered people, daily routines, and executing requests? No. MEMORY - STEP 2: Does the patient have slight difficulty recognizing frequently encountered people, daily routines, or executing requests without the need for repetition or using self-initiated or environmental cues to remember? Yes. MEMORY - SCORE: 6-JADE SIGNATURE PANEL: The following modified sections: Eating - Score, Grooming - Score, Bathing - Score, Dressing - Upper Body - Score, Dressing - Lower Body - Score, Toileting - Score, Bladder Management - Score, Bowel Man agement - Score, Transfers: Bed, Chair, Wheelchair - Score, Transfers: Toilet - Score, Transfers: Mary wer - Score, Transfers: Tub - Score, Locomotion: Walk - Score, Locomotion: Wheelchair - Score, Compre hension - Score, Expression - Score, Social Interaction - Score, Problem Solving - Score, Memory - Sc ore were [electronically] signed by Tisha Smith C.N.A. on Sat Oct 14 2018 15:20:00 T-0500 (Cent[facility] [place] Daylight Time)
[2018-10-14] MEDS: ATORVASTATIN 40 MG TAB PO SCH (20:18)
--- NOTE | 2018-10-15 02:46 | FAST ---
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 Jose Terry M.D. ADMISSION DIAGNOSIS: - Stroke 01 - Left Body (Right Brain) (01.1) Right Basal Ganglia Acute Infarct. EATING: Activity did not occur on this shift EATING - SCORE: 0-UNK GROOMING: Oral care Wash, rinse, and dry hands GROOMING - STEP 1: Does the patient require the assistance of a person or device, or need extra time when grooming? No. GROOMING - SCORE: 7-IND BATHING: Activity did not occur on this shift BATHING - SCORE: 0-UNK DRESSING - UPPER BODY: Patient is not dressing in public clothing ARTICLES SCORE Total number of steps: 0 DRESSING - UPPER BODY - SCORE: 0-UNK DRESSING - LOWER BODY: Patient is not dressing in public clothing ARTICLES SCORE Total number of steps: 0 DRESSING - LOWER BODY - SCORE: 0-UNK TOILETING: TOILETING - STEP 1: Does the patient require the assistance of a person or device, or need extra time with toileting? Yes . TOILETING - STEP 2: Does the patient require the assistance of a helper? No. TOILETING - SCORE: 6-JADE BLADDER MANAGEMENT: BLADDER MANAGEMENT - STEP 1: Does the patient control the bladder completely and intentionally without equipment or devices or med ications, and is always continent? Yes. BLADDER MANAGEMENT - SCORE: 7-IND BOWEL MANAGEMENT: BOWEL MANAGEMENT - STEP 1: Does the patient control bowels completely and intentionally without equipment devices or medications AND is always continent? No. BOWEL MANAGEMENT - STEP 2: Does the patient require the assistance of a helper? No, patient requires medication for control such as stool softeners, suppositories, laxatives, enemas, or OTC medications BOWEL MANAGEMENT - SCORE: 6-JADE TRANSFERS: BED, CHAIR, WHEELCHAIR: TRANSFERS: BED, CHAIR, WHEELCHAIR - STEP 1: Does the patient require assistance of a person or device, or need extra time with bed, chair, or whe elchair transfers? Yes. TRANSFERS: BED, CHAIR, WHEELCHAIR - STEP 2: Does the patient require the assistance of a helper? No. Patient only requires an assistive device fo r bed, chair, wheelchair transfers such as a sliding board, grab bar, or brace, OR s/he takes more th an reasonable time, OR there is a safety concern when s/he performs the transfers TRANSFERS: BED, CHAIR, WHEELCHAIR - SCORE: 6-JADE TRANSFERS: TOILET: TRANSFERS: TOILET - STEP 1: Does the patient require the assistance of a person or device, or need extra time with toilet transfe rs? Yes. TRANSFERS: TOILET - STEP 2: Does the patient require the assistance of a helper? No. Patient only requires an assistive device liu ch as a grab bar or special seat, OR s/he takes more than reasonable time to perform toilet transfers , OR there is a safety concern when s/he performs toilet transfers. TRANSFERS: TOILET - SCORE: 6-JADE TRANSFERS: SHOWER: Activity did not occur on this shift TRANSFERS: SHOWER - SCORE: 0-UNK TRANSFERS: TUB: Activity did not occur on this shift TRANSFERS: TUB - SCORE: 0-UNK LOCOMOTION: WALK: Activity did not occur on this shift LOCOMOTION: WALK - SCORE: 0-UNK LOCOMOTION: WHEELCHAIR: Activity did not occur on this shift LOCOMOTION: WHEELCHAIR - SCORE: 0-UNK COMPREHENSION: COMPREHENSION: TYPE: Both COMPREHENSION - STEP 1: Does the patient require help from a person or device, or need extra time to understand complex and a bstract ideas (such as current events, finances, discharge planning, medical issues, relationships, e tc)? No. COMPREHENSION - STEP 2: Does the patient need extra time, require an assistive device (such as glasses for visual comprehensi on or a hearing aid for auditory comprehension) or does s/he have mild difficulty understanding compl ex and abstract information? Yes. COMPREHENSION - SCORE: 6-JADE EXPRESSION EXPRESSION: TYPE: Both EXPRESSION - STEP 1: Does the patient require help from a person or device, or need extra time expressing complex and abst ract ideas (such as current events, finances, discharge planning, medical issues, relationships, etc) ? No. EXPRESSION - STEP 2: Does the patient need extra time, require an assistive device (such as augmentive communication syste m or a communication board), OR does s/he have mild difficulty expressing complex and abstract ideas (including mild dysarthria or mild word-find problems)? No. EXPRESSION - SCORE: 7-IND SOCIAL INTERACTION: SOCIAL INTERACTION - STEP 1: Does the patient require a helper to interact with others in social and therapeutic situations? No. SOCIAL INTERACTION - STEP 2: Does the patient need extra time in social situations, OR does s/he interact with staff, other patien ts, and family members ONLY in structured environments, OR does s/he require medication for social in teraction? Yes, patient requires medication for social interaction SOCIAL INTERACTION - SCORE: 6-JADE PROBLEM SOLVING: PROBLEM SOLVING - STEP 1: Does the patient need help from a person or device, or need extra time to solve complex problems such as managing a checking account or confronting interpersonal problems? No. PROBLEM SOLVING - STEP 2: Does the patient require extra time to make decisions or solve problems, OR does s/he have slight dif ficulty reading, initiating, or self-correcting in unfamiliar situations? Yes, patient needs extra ti me. PROBLEM SOLVING - SCORE: 6-JADE MEMORY: MEMORY - STEP 1: Does the patient need help from a person or device, or need extra time to remember frequently encount ered people, daily routines, and executing requests? No. MEMORY - STEP 2: Does the patient have slight difficulty recognizing frequently encountered people, daily routines, or executing requests without the need for repetition or using self-initiated or environmental cues to remember? No. MEMORY - SCORE: 7-IND SIGNATURE PANEL: The following modified sections: Eating - Score, Grooming - Score, Dressing - Upper Body - Score, Gabe ssing - Lower Body - Score, Toileting - Score, Bladder Management - Score, Bowel Management - Score, Transfers: Bed, Chair, Wheelchair - Score, Transfers: Toilet - Score, Transfers: Shower - Score, Cent[place] sfers: Tub - Score, Locomotion: Walk - Score, Locomotion: Wheelchair - Score, Comprehension - Score, Expression - Score, Social Interaction - Score, Problem Solving - Score, Memory - Score were [electro nically] signed by Margret Guadalupe CNA on TueOct 15 2018 02:46:16 T-0500 (Central Daylight Time)
[2018-10-15] MEDS: METOPROLOL TAR 25 MG TAB PO SCH ×2 (05:24→17:34)
[2018-10-15] MEDS: LEVOTHYROXINE SOD 0.025 MG TAB PO SCH (06:43)
[2018-10-15] MEDS: VITAMIN B12 3000 MCG SL SCH (07:21)
[2018-10-15] MEDS: NITROFURAN MACRO 100 MG CAP PO SCH (08:18)
[2018-10-15] MEDS: CRANBERRY FRUIT EXTRACT 200 MG CAP PO SCH ×2 (08:18→19:52)
[2018-10-15] MEDS: FOLIC ACID 1 MG TABLET PO SCH (08:18)
[2018-10-15] MEDS: APIXABAN 5 MG TABLET PO SCH ×2 (08:18→19:52)
[2018-10-15] MEDS: DULOXETINE 20 MG CAP PO SCH (08:18)
[2018-10-15] MEDS: ASPIRIN EC 81 MG TAB PO SCH (08:18)
[2018-10-15] MEDS: cloNIDine HCl 0.1 MG TAB PO SCH ×2 (08:18→19:52)
[2018-10-15] MEDS: MULTIVITAMINS,THERAPEUT 1 TAB PO SCH (08:18)
[2018-10-15] MEDS: PROMOD 30 ML DOSE PO SCH ×2 (08:19→19:52)
--- NOTE | 2018-10-15 13:38 | FAST ---
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 Jose Terry M.D. ADMISSION DIAGNOSIS: - Stroke 01 - Left Body (Right Brain) (01.1) Right Basal Ganglia Acute Infarct. EATING: EATING - STEP 1: Does the patient require the assistance of a person or device, or need extra time when eating? Yes. EATING - STEP 2: Does the patient require the assistance of a helper? No, patient only requires an assistive device, O R s/he takes more than reasonable time to eat, OR there is a safety concern, OR s/he requires modifie d food consistency EATING - SCORE: 6-JADE GROOMING: Comb/brush hair Oral care Wash, rinse, and dry face Wash, rinse, and dry hands GROOMING - STEP 1: Does the patient require the assistance of a person or device, or need extra time when grooming? Yes. GROOMING - STEP 2: Does the patient require the assistance of a helper? No. The patient only requires an assistive devic e, OR takes more than reasonable time to groom, OR there is a concern for safety as the patient groom s GROOMING - SCORE: 6-JADE BATHING: Activity did not occur on this shift BATHING - SCORE: 0-UNK DRESSING - UPPER BODY: Bra (three steps) T-shirt/pullover shirt (four steps) ARTICLES SCORE Total number of steps: 7 DRESSING - UPPER BODY - STEP 1: Does the patient require help from a person or device, or need extra time when dressing above the jose st? Yes. DRESSING - UPPER BODY - STEP 2: Does the patient require the assistance of a helper? No. Patient only requires an assistive device, s uch as a button hook, velcro, or seasonal clerk. OR s/he takes more than reasonable time as s/he dresses the upper body. OR there is a concern for safety when s/he dresses the upper body DRESSING - UPPER BODY - SCORE: 6-JADE DRESSING - LOWER BODY: Elastic waist pants (three steps) Slip-on shoe - Left foot (one step) Slip-on shoe - Right foot (one step) ARTICLES SCORE Total number of steps: 5 DRESSING - LOWER BODY - STEP 1: Does the patient require help from a person or device, or need extra time when dressing below the jose st? Yes. DRESSING - LOWER BODY - STEP 2: Does the patient require the assistance of a helper? No. Patient requires an assistive device such as a seasonal clerk. OR s/he takes more than reasonable time as s/he dresses the lower body, OR there is a con cern for safety when s/he dresses the lower body DRESSING - LOWER BODY - SCORE: 6-JADE TOILETING: TOILETING - STEP 1: Does the patient require the assistance of a person or device, or need extra time with toileting? No. TOILETING - SCORE: 7-IND BLADDER MANAGEMENT: BLADDER MANAGEMENT - STEP 1: Does the patient control the bladder completely and intentionally without equipment or devices or med ications, and is always continent? Yes. BLADDER MANAGEMENT - SCORE: 7-IND BLADDER MANAGEMENT - FREQUENCY OF ACCIDENTS: BLADDER MANAGEMENT(FA) - STEP 1: How many accidents has the patient had during the current shift? 0 BOWEL MANAGEMENT: BOWEL MANAGEMENT - STEP 1: Does the patient control bowels completely and intentionally without equipment devices or medications AND is always continent? Yes. BOWEL MANAGEMENT - SCORE: 7-IND BOWEL MANAGEMENT - FREQUENCY OF ACCIDENTS: BOWEL MANAGEMENT(FA) - STEP 1: How many accidents has the patient had during the current shift? 0 TRANSFERS: BED, CHAIR, WHEELCHAIR: TRANSFERS: BED, CHAIR, WHEELCHAIR - STEP 1: Does the patient require assistance of a person or device, or need extra time with bed, chair, or whe elchair transfers? No. TRANSFERS: BED, CHAIR, WHEELCHAIR - SCORE: 7-IND TRANSFERS: TOILET: TRANSFERS: TOILET - STEP 1: Does the patient require the assistance of a person or device, or need extra time with toilet transfe rs? No. TRANSFERS: TOILET - SCORE: 7-IND TRANSFERS: SHOWER: Activity did not occur on this shift TRANSFERS: SHOWER - SCORE: 0-UNK TRANSFERS: TUB: Activity did not occur on this shift TRANSFERS: TUB - SCORE: 0-UNK LOCOMOTION: WALK: LOCOMOTION: WALK - STEP 1: Does the patient need help from a person or device, or need extra time to walk 150 feet? No. LOCOMOTION: WALK - STEP 2: Does the patient need an assistive device (such as an orthosis, prosthesis, crutches, or walker) to g o 150 feet, OR does s/he take more than reasonable time, OR is there a concern for safety? No. LOCOMOTION: WALK - SCORE: 7-IND LOCOMOTION: WHEELCHAIR: Activity did not occur on this shift LOCOMOTION: WHEELCHAIR - SCORE: 0-UNK COMPREHENSION: COMPREHENSION: TYPE: Both COMPREHENSION - STEP 1: Does the patient require help from a person or device, or need extra time to understand complex and a bstract ideas (such as current events, finances, discharge planning, medical issues, relationships, e tc)? No. COMPREHENSION - STEP 2: Does the patient need extra time, require an assistive device (such as glasses for visual comprehensi on or a hearing aid for auditory comprehension) or does s/he have mild difficulty understanding compl ex and abstract information? Yes. COMPREHENSION - SCORE: 6-JADE EXPRESSION EXPRESSION: TYPE: Both EXPRESSION - STEP 1: Does the patient require help from a person or device, or need extra time expressing complex and abst ract ideas (such as current events, finances, discharge planning, medical issues, relationships, etc) ? No. EXPRESSION - STEP 2: Does the patient need extra time, require an assistive device (such as augmentive communication syste m or a communication board), OR does s/he have mild difficulty expressing complex and abstract ideas (including mild dysarthria or mild word-find problems)? Yes. EXPRESSION - SCORE: 6-JADE SOCIAL INTERACTION: SOCIAL INTERACTION - STEP 1: Does the patient require a helper to interact with others in social and therapeutic situations? No. SOCIAL INTERACTION - STEP 2: Does the patient need extra time in social situations, OR does s/he interact with staff, other patien ts, and family members ONLY in structured environments, OR does s/he require medication for social in teraction? No. SOCIAL INTERACTION - SCORE: 7-IND PROBLEM SOLVING: PROBLEM SOLVING - STEP 1: Does the patient need help from a person or device, or need extra time to solve complex problems such as managing a checking account or confronting interpersonal problems? No. PROBLEM SOLVING - STEP 2: Does the patient require extra time to make decisions or solve problems, OR does s/he have slight dif ficulty reading, initiating, or self-correcting in unfamiliar situations? Yes, patient needs extra ti me. PROBLEM SOLVING - SCORE: 6-JADE MEMORY: MEMORY - STEP 1: Does the patient need help from a person or device, or need extra time to remember frequently encount ered people, daily routines, and executing requests? No. MEMORY - STEP 2: Does the patient have slight difficulty recognizing frequently encountered people, daily routines, or executing requests without the need for repetition or using self-initiated or environmental cues to remember? Yes. MEMORY - SCORE: 6-JADE SIGNATURE PANEL: The following modified sections: Eating - Score, Grooming - Score, Bathing - Score, Dressing - Upper Body - Score, Dressing - Lower Body - Score, Toileting - Score, Bladder Management - Score, Bowel Man agement - Score, Transfers: Bed, Chair, Wheelchair - Score, Transfers: Toilet - Score, Transfers: Mary wer - Score, Transfers: Tub - Score, Locomotion: Walk - Score, Locomotion: Wheelchair - Score, Compre hension - Score, Expression - Score, Social Interaction - Score, Problem Solving - Score, Memory - Sc ore were [electronically] signed by Tisha Smith C.N.A. on TueOct 15 2018 13:37:49 T-0500 (Cent[place] Daylight Time)
[2018-10-15] MEDS: ATORVASTATIN 40 MG TAB PO SCH (20:01)
--- NOTE | 2018-10-16 01:21 | FAST ---
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 Jose Terry M.D. ADMISSION DIAGNOSIS: - Stroke 01 - Left Body (Right Brain) (01.1) Right Basal Ganglia Acute Infarct. EATING: Activity did not occur on this shift EATING - SCORE: 0-UNK GROOMING: Oral care Wash, rinse, and dry hands GROOMING - STEP 1: Does the patient require the assistance of a person or device, or need extra time when grooming? Yes. GROOMING - STEP 2: Does the patient require the assistance of a helper? No. The patient only requires an assistive devic e, OR takes more than reasonable time to groom, OR there is a concern for safety as the patient groom s GROOMING - SCORE: 6-JADE BATHING: Activity did not occur on this shift BATHING - SCORE: 0-UNK DRESSING - UPPER BODY: Patient is not dressing in public clothing ARTICLES SCORE Total number of steps: 0 DRESSING - UPPER BODY - SCORE: 0-UNK DRESSING - LOWER BODY: Patient is not dressing in public clothing ARTICLES SCORE Total number of steps: 0 DRESSING - LOWER BODY - SCORE: 0-UNK TOILETING: TOILETING - STEP 1: Does the patient require the assistance of a person or device, or need extra time with toileting? Yes . TOILETING - STEP 2: Does the patient require the assistance of a helper? No. TOILETING - SCORE: 6-JADE BLADDER MANAGEMENT: BLADDER MANAGEMENT - STEP 1: Does the patient control the bladder completely and intentionally without equipment or devices or med ications, and is always continent? Yes. BLADDER MANAGEMENT - SCORE: 7-IND BOWEL MANAGEMENT: BOWEL MANAGEMENT - STEP 1: Does the patient control bowels completely and intentionally without equipment devices or medications AND is always continent? No. BOWEL MANAGEMENT - STEP 2: Does the patient require the assistance of a helper? No, patient requires medication for control such as stool softeners, suppositories, laxatives, enemas, or OTC medications BOWEL MANAGEMENT - SCORE: 6-JADE TRANSFERS: BED, CHAIR, WHEELCHAIR: TRANSFERS: BED, CHAIR, WHEELCHAIR - STEP 1: Does the patient require assistance of a person or device, or need extra time with bed, chair, or whe elchair transfers? Yes. TRANSFERS: BED, CHAIR, WHEELCHAIR - STEP 2: Does the patient require the assistance of a helper? No. Patient only requires an assistive device fo r bed, chair, wheelchair transfers such as a sliding board, grab bar, or brace, OR s/he takes more th an reasonable time, OR there is a safety concern when s/he performs the transfers TRANSFERS: BED, CHAIR, WHEELCHAIR - SCORE: 6-JADE TRANSFERS: TOILET: TRANSFERS: TOILET - STEP 1: Does the patient require the assistance of a person or device, or need extra time with toilet transfe rs? Yes. TRANSFERS: TOILET - STEP 2: Does the patient require the assistance of a helper? No. Patient only requires an assistive device liu ch as a grab bar or special seat, OR s/he takes more than reasonable time to perform toilet transfers , OR there is a safety concern when s/he performs toilet transfers. TRANSFERS: TOILET - SCORE: 6-JADE TRANSFERS: SHOWER: Activity did not occur on this shift TRANSFERS: SHOWER - SCORE: 0-UNK TRANSFERS: TUB: Activity did not occur on this shift TRANSFERS: TUB - SCORE: 0-UNK LOCOMOTION: WALK: Activity did not occur on this shift LOCOMOTION: WALK - SCORE: 0-UNK LOCOMOTION: WHEELCHAIR: Activity did not occur on this shift LOCOMOTION: WHEELCHAIR - SCORE: 0-UNK COMPREHENSION: COMPREHENSION: TYPE: Both COMPREHENSION - STEP 1: Does the patient require help from a person or device, or need extra time to understand complex and a bstract ideas (such as current events, finances, discharge planning, medical issues, relationships, e tc)? No. COMPREHENSION - STEP 2: Does the patient need extra time, require an assistive device (such as glasses for visual comprehensi on or a hearing aid for auditory comprehension) or does s/he have mild difficulty understanding compl ex and abstract information? Yes. COMPREHENSION - SCORE: 6-JADE EXPRESSION EXPRESSION: TYPE: Both EXPRESSION - STEP 1: Does the patient require help from a person or device, or need extra time expressing complex and abst ract ideas (such as current events, finances, discharge planning, medical issues, relationships, etc) ? No. EXPRESSION - STEP 2: Does the patient need extra time, require an assistive device (such as augmentive communication syste m or a communication board), OR does s/he have mild difficulty expressing complex and abstract ideas (including mild dysarthria or mild word-find problems)? Yes. EXPRESSION - SCORE: 6-JADE SOCIAL INTERACTION: SOCIAL INTERACTION - STEP 1: Does the patient require a helper to interact with others in social and therapeutic situations? No. SOCIAL INTERACTION - STEP 2: Does the patient need extra time in social situations, OR does s/he interact with staff, other patien ts, and family members ONLY in structured environments, OR does s/he require medication for social in teraction? Yes, patient requires medication for social interaction SOCIAL INTERACTION - SCORE: 6-JADE PROBLEM SOLVING: PROBLEM SOLVING - STEP 1: Does the patient need help from a person or device, or need extra time to solve complex problems such as managing a checking account or confronting interpersonal problems? No. PROBLEM SOLVING - STEP 2: Does the patient require extra time to make decisions or solve problems, OR does s/he have slight dif ficulty reading, initiating, or self-correcting in unfamiliar situations? Yes, patient needs extra ti me. PROBLEM SOLVING - SCORE: 6-JADE MEMORY: MEMORY - STEP 1: Does the patient need help from a person or device, or need extra time to remember frequently encount ered people, daily routines, and executing requests? No. MEMORY - STEP 2: Does the patient have slight difficulty recognizing frequently encountered people, daily routines, or executing requests without the need for repetition or using self-initiated or environmental cues to remember? Yes. MEMORY - SCORE: 6-JADE SIGNATURE PANEL: The following modified sections: Eating - Score, Grooming - Score, Dressing - Upper Body - Score, Gabe ssing - Lower Body - Score, Toileting - Score, Bladder Management - Score, Bowel Management - Score, Transfers: Bed, Chair, Wheelchair - Score, Transfers: Toilet - Score, Transfers: Shower - Score, [place] sfers: Tub - Score, Locomotion: Walk - Score, Locomotion: Wheelchair - Score, Comprehension - Score, Expression - Score, Social Interaction - Score, Problem Solving - Score, Memory - Score were [electro nically] signed by Margret Guadalupe CNA on TueOct 16 2018 01:19:44 T-0500 (Central Daylight Time)
[2018-10-16] MEDS: METOPROLOL TAR 25 MG TAB PO SCH ×2 (05:25→17:10)
[2018-10-16] MEDS: LEVOTHYROXINE SOD 0.025 MG TAB PO SCH (06:20)
[2018-10-16] MEDS: VITAMIN B12 3000 MCG SL SCH (08:03)
[2018-10-16] MEDS: MULTIVITAMINS,THERAPEUT 1 TAB PO SCH (08:04)
[2018-10-16] MEDS: FOLIC ACID 1 MG TABLET PO SCH (08:04)
[2018-10-16] MEDS: DULOXETINE 20 MG CAP PO SCH (08:04)
[2018-10-16] MEDS: CRANBERRY FRUIT EXTRACT 200 MG CAP PO SCH ×2 (08:04→19:40)
[2018-10-16] MEDS: APIXABAN 5 MG TABLET PO SCH ×2 (08:04→19:40)
[2018-10-16] MEDS: ASPIRIN EC 81 MG TAB PO SCH (08:05)
[2018-10-16] MEDS: cloNIDine HCl 0.1 MG TAB PO SCH ×2 (08:05→19:40)
[2018-10-16] MEDS: PROMOD 30 ML DOSE PO SCH ×2 (09:00→19:39)
--- NOTE | 2018-10-16 12:58 | FAST ---
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 Jose Terry M.D. ADMISSION DIAGNOSIS: - Stroke 01 - Left Body (Right Brain) (01.1) Right Basal Ganglia Acute Infarct. EATING: EATING - STEP 1: Does the patient require the assistance of a person or device, or need extra time when eating? Yes. EATING - STEP 2: Does the patient require the assistance of a helper? No, patient only requires an assistive device, O R s/he takes more than reasonable time to eat, OR there is a safety concern, OR s/he requires modifie d food consistency EATING - SCORE: 6-JADE GROOMING: Comb/brush hair Oral care Patient applied make-up GROOMING - STEP 1: Does the patient require the assistance of a person or device, or need extra time when grooming? Yes. GROOMING - STEP 2: Does the patient require the assistance of a helper? No. The patient only requires an assistive devic e, OR takes more than reasonable time to groom, OR there is a concern for safety as the patient groom s GROOMING - SCORE: 6-JADE BATHING: Activity did not occur on this shift BATHING - SCORE: 0-UNK DRESSING - UPPER BODY: Activity did not occur on this shift ARTICLES SCORE Total number of steps: 0 DRESSING - UPPER BODY - SCORE: 0-UNK DRESSING - LOWER BODY: Activity did not occur on this shift ARTICLES SCORE Total number of steps: 0 DRESSING - LOWER BODY - SCORE: 0-UNK TOILETING: TOILETING - STEP 1: Does the patient require the assistance of a person or device, or need extra time with toileting? Yes . TOILETING - STEP 2: Does the patient require the assistance of a helper? No. TOILETING - SCORE: 6-JADE BLADDER MANAGEMENT: BLADDER MANAGEMENT - STEP 1: Does the patient control the bladder completely and intentionally without equipment or devices or med ications, and is always continent? No. BLADDER MANAGEMENT - STEP 2: Does the patient require the assistance of a helper? No, patient requires and independently uses an a ssistive device, such as a urinal, bedpan, bedside commode, catheter, absorbent pad, or collecting de vice BLADDER MANAGEMENT - SCORE: 6-JADE BOWEL MANAGEMENT: Activity did not occur on this shift BOWEL MANAGEMENT - SCORE: 7-IND TRANSFERS: BED, CHAIR, WHEELCHAIR: TRANSFERS: BED, CHAIR, WHEELCHAIR - STEP 1: Does the patient require assistance of a person or device, or need extra time with bed, chair, or whe elchair transfers? Yes. TRANSFERS: BED, CHAIR, WHEELCHAIR - STEP 2: Does the patient require the assistance of a helper? No. Patient only requires an assistive device fo r bed, chair, wheelchair transfers such as a sliding board, grab bar, or brace, OR s/he takes more th an reasonable time, OR there is a safety concern when s/he performs the transfers TRANSFERS: BED, CHAIR, WHEELCHAIR - SCORE: 6-JADE TRANSFERS: TOILET: TRANSFERS: TOILET - STEP 1: Does the patient require the assistance of a person or device, or need extra time with toilet transfe rs? Yes. TRANSFERS: TOILET - STEP 2: Does the patient require the assistance of a helper? No. Patient only requires an assistive device liu ch as a grab bar or special seat, OR s/he takes more than reasonable time to perform toilet transfers , OR there is a safety concern when s/he performs toilet transfers. TRANSFERS: TOILET - SCORE: 6-JADE TRANSFERS: SHOWER: Activity did not occur on this shift TRANSFERS: SHOWER - SCORE: 0-UNK TRANSFERS: TUB: Activity did not occur on this shift TRANSFERS: TUB - SCORE: 0-UNK LOCOMOTION: WALK: Activity did not occur on this shift LOCOMOTION: WALK - SCORE: 0-UNK LOCOMOTION: WHEELCHAIR: Activity did not occur on this shift LOCOMOTION: WHEELCHAIR - SCORE: 0-UNK COMPREHENSION: COMPREHENSION: TYPE: Both COMPREHENSION - STEP 1: Does the patient require help from a person or device, or need extra time to understand complex and a bstract ideas (such as current events, finances, discharge planning, medical issues, relationships, e tc)? No. COMPREHENSION - STEP 2: Does the patient need extra time, require an assistive device (such as glasses for visual comprehensi on or a hearing aid for auditory comprehension) or does s/he have mild difficulty understanding compl ex and abstract information? Yes. COMPREHENSION - SCORE: 6-JADE EXPRESSION EXPRESSION: TYPE: Both EXPRESSION - STEP 1: Does the patient require help from a person or device, or need extra time expressing complex and abst ract ideas (such as current events, finances, discharge planning, medical issues, relationships, etc) ? No. EXPRESSION - STEP 2: Does the patient need extra time, require an assistive device (such as augmentive communication syste m or a communication board), OR does s/he have mild difficulty expressing complex and abstract ideas (including mild dysarthria or mild word-find problems)? Yes. EXPRESSION - SCORE: 6-JADE SOCIAL INTERACTION: SOCIAL INTERACTION - STEP 1: Does the patient require a helper to interact with others in social and therapeutic situations? No. SOCIAL INTERACTION - STEP 2: Does the patient need extra time in social situations, OR does s/he interact with staff, other patien ts, and family members ONLY in structured environments, OR does s/he require medication for social in teraction? Yes, patient needs extra time SOCIAL INTERACTION - SCORE: 6-JADE PROBLEM SOLVING: PROBLEM SOLVING - STEP 1: Does the patient need help from a person or device, or need extra time to solve complex problems such as managing a checking account or confronting interpersonal problems? Yes. PROBLEM SOLVING - STEP 2: Does the patient solve basic routine problems half or more of the time? Yes. PROBLEM SOLVING - STEP 3: How often does the patient need help to solve basic routine problems? Less than 10% of the time PROBLEM SOLVING - SCORE: 5-SUP MEMORY: MEMORY - STEP 1: Does the patient need help from a person or device, or need extra time to remember frequently encount ered people, daily routines, and executing requests? Yes. MEMORY - STEP 2: How often does the patient need help to remember frequently encountered people, daily routines, and e xecuting requests? Less than 10% of the time MEMORY - SCORE: 5-SUP SIGNATURE PANEL: The following modified sections: Eating - Score, Grooming - Score, Bathing - Score, Dressing - Upper Body - Score, Dressing - Lower Body - Score, Toileting - Score, Bladder Management - Score, Bowel Man agement - Score, Transfers: Bed, Chair, Wheelchair - Score, Transfers: Toilet - Score, Transfers: Mary wer - Score, Transfers: Tub - Score, Locomotion: Walk - Score, Locomotion: Wheelchair - Score, Compre hension - Score, Expression - Score, Social Interaction - Score, Problem Solving - Score, Memory - Sc ore were [electronically] signed by Shaheen Wills on TueOct 16 2018 12:57:29 GMT-0500 (Central Daylight Time)
[2018-10-16] MEDS: ATORVASTATIN 40 MG TAB PO SCH (20:05)
--- NOTE | 2018-10-17 02:37 | FAST ---
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 Jose Terry M.D. ADMISSION DIAGNOSIS: - Stroke 01 - Left Body (Right Brain) (01.1) Right Basal Ganglia Acute Infarct. EATING: Activity did not occur on this shift EATING - SCORE: 0-UNK GROOMING: Activity did not occur on this shift GROOMING - SCORE: 0-UNK BATHING: Activity did not occur on this shift BATHING - SCORE: 0-UNK DRESSING - UPPER BODY: Patient is not dressing in public clothing ARTICLES SCORE Total number of steps: 0 DRESSING - UPPER BODY - SCORE: 0-UNK DRESSING - LOWER BODY: Patient is not dressing in public clothing ARTICLES SCORE Total number of steps: 0 DRESSING - LOWER BODY - SCORE: 0-UNK TOILETING: TOILETING - STEP 1: Does the patient require the assistance of a person or device, or need extra time with toileting? No. TOILETING - SCORE: 7-IND BLADDER MANAGEMENT: Activity did not occur on this shift BLADDER MANAGEMENT - SCORE: 7-IND BOWEL MANAGEMENT: Activity did not occur on this shift BOWEL MANAGEMENT - SCORE: 7-IND TRANSFERS: BED, CHAIR, WHEELCHAIR: TRANSFERS: BED, CHAIR, WHEELCHAIR - STEP 1: Does the patient require assistance of a person or device, or need extra time with bed, chair, or whe elchair transfers? No. TRANSFERS: BED, CHAIR, WHEELCHAIR - SCORE: 7-IND TRANSFERS: TOILET: TRANSFERS: TOILET - STEP 1: Does the patient require the assistance of a person or device, or need extra time with toilet transfe rs? No. TRANSFERS: TOILET - SCORE: 7-IND TRANSFERS: SHOWER: Activity did not occur on this shift TRANSFERS: SHOWER - SCORE: 0-UNK TRANSFERS: TUB: Activity did not occur on this shift TRANSFERS: TUB - SCORE: 0-UNK LOCOMOTION: WALK: Activity did not occur on this shift LOCOMOTION: WALK - SCORE: 0-UNK LOCOMOTION: WHEELCHAIR: Activity did not occur on this shift LOCOMOTION: WHEELCHAIR - SCORE: 0-UNK COMPREHENSION: COMPREHENSION: TYPE: Both COMPREHENSION - STEP 1: Does the patient require help from a person or device, or need extra time to understand complex and a bstract ideas (such as current events, finances, discharge planning, medical issues, relationships, e tc)? No. COMPREHENSION - STEP 2: Does the patient need extra time, require an assistive device (such as glasses for visual comprehensi on or a hearing aid for auditory comprehension) or does s/he have mild difficulty understanding compl ex and abstract information? Yes. COMPREHENSION - SCORE: 6-JADE EXPRESSION EXPRESSION: TYPE: Both EXPRESSION - STEP 1: Does the patient require help from a person or device, or need extra time expressing complex and abst ract ideas (such as current events, finances, discharge planning, medical issues, relationships, etc) ? No. EXPRESSION - STEP 2: Does the patient need extra time, require an assistive device (such as augmentive communication syste m or a communication board), OR does s/he have mild difficulty expressing complex and abstract ideas (including mild dysarthria or mild word-find problems)? No. EXPRESSION - SCORE: 7-IND SOCIAL INTERACTION: SOCIAL INTERACTION - STEP 1: Does the patient require a helper to interact with others in social and therapeutic situations? No. SOCIAL INTERACTION - STEP 2: Does the patient need extra time in social situations, OR does s/he interact with staff, other patien ts, and family members ONLY in structured environments, OR does s/he require medication for social in teraction? No. SOCIAL INTERACTION - SCORE: 7-IND PROBLEM SOLVING: PROBLEM SOLVING - STEP 1: Does the patient need help from a person or device, or need extra time to solve complex problems such as managing a checking account or confronting interpersonal problems? No. PROBLEM SOLVING - STEP 2: Does the patient require extra time to make decisions or solve problems, OR does s/he have slight dif ficulty reading, initiating, or self-correcting in unfamiliar situations? No. PROBLEM SOLVING - SCORE: 7-IND MEMORY: MEMORY - STEP 1: Does the patient need help from a person or device, or need extra time to remember frequently encount ered people, daily routines, and executing requests? No. MEMORY - STEP 2: Does the patient have slight difficulty recognizing frequently encountered people, daily routines, or executing requests without the need for repetition or using self-initiated or environmental cues to remember? No. MEMORY - SCORE: 7-IND SIGNATURE PANEL: The following modified sections: Eating - Score, Grooming - Score, Bathing - Score, Dressing - Upper Body - Score, Dressing - Lower Body - Score, Toileting - Score, Bladder Management - Score, Bowel Man agement - Score, Transfers: Bed, Chair, Wheelchair - Score, Transfers: Toilet - Score, Transfers: Mary wer - Score, Transfers: Tub - Score, Locomotion: Walk - Score, Locomotion: Wheelchair - Score, Compre hension - Score, Expression - Score, Social Interaction - Score, Problem Solving - Score, Memory - Sc ore were [electronically] signed by Yelena Sánchez CNA on TueOct 17 2018 02:35:03 T-0500 ([place] Da ylight Time)
[2018-10-17] MEDS: METOPROLOL TAR 25 MG TAB PO SCH (05:01)
[2018-10-17] MEDS: LEVOTHYROXINE SOD 0.025 MG TAB PO SCH (06:52)
[2018-10-17 07:25] VITALS: TEMP 97.8
[2018-10-17] MEDS: cloNIDine HCl 0.1 MG TAB PO SCH (08:22)
[2018-10-17] MEDS: DULOXETINE 20 MG CAP PO SCH (08:22)
[2018-10-17] MEDS: FOLIC ACID 1 MG TABLET PO SCH (08:22)
[2018-10-17] MEDS: ASPIRIN EC 81 MG TAB PO SCH (08:22)
[2018-10-17] MEDS: MULTIVITAMINS,THERAPEUT 1 TAB PO SCH (08:22)
[2018-10-17] MEDS: CRANBERRY FRUIT EXTRACT 200 MG CAP PO SCH (08:22)
[2018-10-17] MEDS: APIXABAN 5 MG TABLET PO SCH (08:23)
[2018-10-17] MEDS: VITAMIN B12 3000 MCG SL SCH (08:23)
[2018-10-17] MEDS: PROMOD 30 ML DOSE PO SCH (08:23)
[2018-10-17 12:12] VITALS: BP 153/69
--- NOTE | 2018-10-17 15:44 | FAST ---
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 Jose Terry M.D. ADMISSION DIAGNOSIS: - Stroke 01 - Left Body (Right Brain) (01.1) Right Basal Ganglia Acute Infarct. EATING: Activity did not occur on this shift EATING - SCORE: 0-UNK GROOMING: Activity did not occur on this shift GROOMING - SCORE: 0-UNK BATHING: Activity did not occur on this shift BATHING - SCORE: 0-UNK DRESSING - UPPER BODY: Activity did not occur on this shift Patient is not dressing in public clothing ARTICLES SCORE Total number of steps: 0 DRESSING - UPPER BODY - SCORE: 0-UNK DRESSING - LOWER BODY: Activity did not occur on this shift Patient is not dressing in public clothing ARTICLES SCORE Total number of steps: 0 DRESSING - LOWER BODY - SCORE: 0-UNK TOILETING: Activity did not occur on this shift TOILETING - SCORE: 0-UNK BLADDER MANAGEMENT: Activity did not occur on this shift BLADDER MANAGEMENT - SCORE: 7-IND BOWEL MANAGEMENT: Activity did not occur on this shift BOWEL MANAGEMENT - SCORE: 7-IND TRANSFERS: BED, CHAIR, WHEELCHAIR: TRANSFERS: BED, CHAIR, WHEELCHAIR - STEP 1: Does the patient require assistance of a person or device, or need extra time with bed, chair, or whe elchair transfers? Yes. TRANSFERS: BED, CHAIR, WHEELCHAIR - STEP 2: Does the patient require the assistance of a helper? No. Patient only requires an assistive device fo r bed, chair, wheelchair transfers such as a sliding board, grab bar, or brace, OR s/he takes more th an reasonable time, OR there is a safety concern when s/he performs the transfers TRANSFERS: BED, CHAIR, WHEELCHAIR - SCORE: 6-JADE TRANSFERS: TOILET: Activity did not occur on this shift TRANSFERS: TOILET - SCORE: 0-UNK TRANSFERS: SHOWER: Activity did not occur on this shift TRANSFERS: SHOWER - SCORE: 0-UNK TRANSFERS: TUB: Activity did not occur on this shift TRANSFERS: TUB - SCORE: 0-UNK LOCOMOTION: WALK: LOCOMOTION: WALK - STEP 1: Does the patient need help from a person or device, or need extra time to walk 150 feet? No. LOCOMOTION: WALK - STEP 2: Does the patient need an assistive device (such as an orthosis, prosthesis, crutches, or walker) to g o 150 feet, OR does s/he take more than reasonable time, OR is there a concern for safety? Yes, the p atient needs an assistive device LOCOMOTION: WALK - SCORE: 6-JADE LOCOMOTION: WHEELCHAIR: Activity did not occur on this shift LOCOMOTION: WHEELCHAIR - SCORE: 0-UNK LOCOMOTION: STAIRS: LOCOMOTION: STAIRS - STEP 1: Does the patient need help to go up and down 12 to 14 stairs? No. LOCOMOTION: STAIRS - STEP 2: Does the patient require an assistive device - such as handrails or cane - to go up and down one flig ht of stairs, OR does s/he take more than reasonable time, OR is there a concern for safety? Yes, the patient requires an assistive device LOCOMOTION: STAIRS - SCORE: 6-JADE COMPREHENSION: COMPREHENSION - SCORE: 0-UNK EXPRESSION EXPRESSION - SCORE: 0-UNK SOCIAL INTERACTION: SOCIAL INTERACTION - SCORE: 0-UNK PROBLEM SOLVING: PROBLEM SOLVING - SCORE: 0-UNK MEMORY: MEMORY - SCORE: 0-UNK SIGNATURE PANEL: The following modified sections: Transfers: Bed, Chair, Wheelchair - Score, Transfers: Toilet - Score , Locomotion: Walk - Score, Locomotion: Wheelchair - Score, Locomotion: Stairs - Score were [garo anaya] signed by Nguyễn Pillai PTA on TueOct 17 2018 15:42:50 T-0500 (Central Daylight Time)
--- NOTE | 2018-10-18 17:26 | R.DS ---
FACILITY [facility] [id number] [id number] NAME MARIELY HUI ADDRESS [address] [place] [address] PHONE DATE OF 1935 AGE 82 SSN# [id number] GENDER Female DEXTERITY Right-handed MARITAL STATUS RACE White ENCOUNTER PHYSICIAN Dr. Jose Terry M.D. 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) MEDICATION ALLERGIES: Penicillin ENVIRONMENTAL ALLERGIES: None Known - Substance Allergies None Known - Other Allergies None Known NURSING: - Shower allowing shower - Bladder care per protocol - Skin care per protocol PRECAUTIONS: - Weight Bearing Precaution WBAT left LE ACTIVITIES OOB only with supervision THERAPIES: - Occupational Therapy Evaluate and Treat Visual Perceptual Training Cognitive Retraining - Speech Therapy Cognitive Training Memory Strategies Speech Intelligibility Training Expressive Language Skills Receptive Language Skills - Physical Therapy Evaluate and Treat HISTORY OF PRESENT ILLNESS: Pt. is a 82 yo Right-handed white female.On 10/05/2018 Pt. presented to [facility] with sudden onset of left-side weakness.On 10/05/2018 she was admitted to [facility] with diagnosis Right Basal Ganglia Acute Infarct.Her impairment category is Stroke 01 - Le ft Body (Right Brain) (01.1).Pre-morbidly, Pt. was independent/mod-I in Self-Care, Sphincter Control, Transfers Control, and Locomotion; and she had good Sphincter Control.Currently, she has deficits of Locomotion, Communication, Social Cognition, Endurance, Balance, Safety Awareness, Transfers Control , and Self-Care.Pt. is now referred to [facility] for acute in-patient rehabil itation in order to maximize patient's functional independence in activities of daily living, strengt h, ROM, and mobility.- Rehab Goal Patient has realistic goal of being discharged at assistance level 6-Dharmesh to reside at Home with Fam roberto/Relatives. Mariely Hui is an 82 year old female that lives in a single clarissa home with 1 step to enter. Patient is independent with ADL who does laundry, cooking and still driving. On 10/05/2018, she fell at home and was admitted to [facility] and treated. She is now medically stable but in need of 24-hour nursing, doctor supervision and oversite while receiving acti ve and ongoing intensive PT, OT expected to participate in 3hours of therapy a day/15 hours per week and receive care with an intensive interdisciplinary approach.HOSPITAL COURSE: DIET - LIQUID TEXTURE: On 10/06/2018 Pt was upgraded to Regular Diet - Liquid Texture. DIET - SOLID TEXTURE: On 10/06/2018 Pt was upgraded to Regular Diet - Solid Texture. DIET TYPE: On 10/06/2018 Pt was upgraded to Regular Diet Type. TUBE FEED: On 10/06/2018 Pt was changed to N/A Tube Feed. WEIGHT BEARING PRECAUTION: On 10/09/2018 the following precautions were added for the patient: Weight Bearing Precaution - WBAT left LE, and Weight Bearing Precaution - WBAT left LE. On 10/11/2018 the following precautions were removed for the patient: Weight Bearing Precaution - WB AT left LE. DISCHARGE PHYSICAL EXAM - Gen Alert and awake Lying in bed No apparent distress Oriented to: person, time, and place - Skin No breakdown No abnormalities - Eyes No abnormalities - ENMT No abnormalities - Neck No abnormalities - CVS RRR - Chest Clear - Resp Clear to auscultation - Abd +bowel sounds - GI Soft Deferred - No abnormalities - Ext No significant edema - MSK 4+/5 weakness in left and right lower extremity - Neuro 4/5 strength left upper and lower extremities. - Psych No abnormalities FUNCTIONAL STATUS: - Self-Care A. Eating 7-Ind B. Grooming 7-Ind C. Bathing 6-Dharmesh D. Dressing - Upper 6-Dharmesh E. Dressing - Lower 6-Dharmesh F. Toileting 6-Dharmesh - Sphincter Control G: Bladder control 7-Ind H: Bowel control 7-Ind - Transfers Control I. Bed/Chair/Wheelchair 7-Ind J. Toilet 6-Dharmesh K. Tub/Shower 6-Dharmesh - Locomotion L. Walk/Wheelchair (C) 7-Ind L. Walk/Wheelchair (W) 7-Ind M. Stairs 6-Dharmesh - Communication N. Comprehension (B) 6-Dharmesh O. Expression (B) 6-Dharmesh - Social Cognition P. Social Interaction 6-Dharmesh Q. Problem Solving 6-Dharmesh R. Memory 6-Dharmesh - Endurance Fair - Balance Fair - Safety Awareness Fair DISCHARGE INSTRUCTIONS: - N/A Eliquis 5 mg twice daily and aspirin 81 mg daily. DISCHARGE PLAN, FOLLOW UP CARE PROVISIONS: - Estimated Length of Stay (days) 17. - Consensus on plan Discharge plan has been discussed with primary caregiver. Patient/Family is in agreement with the julianne n. Primary caregiver is in agreement with the plan. - Patient/Family Goals Return home with assistance. - Planned Living Setting Upon Discharge Home, to live with Family/Relatives. SIGNATURE PANEL: (CDT)
== END 2018-10-17 13:30 | disposition home health service (06) | DRG 57 ==
LOC: 5TH 21:26
PROVIDERS: ADMIT Psychiatry & Neurology Neurology with Special Qualifications in Child Neurology; ATTEND Psychiatry & Neurology Neurology with Special Qualifications in Child Neurology
DX: I69.354 Hemiplegia and hemiparesis following cerebral infarction affecting left non-dominant side (principal); E03.9 Hypothyroidism, unspecified; I48.91 Unspecified atrial fibrillation; Z85.3 Personal history of malignant neoplasm of breast; Z23 Encounter for immunization
CPT/HCPCS: 36415; 80048; 81001; 82040; 83735; 84134; 85025; 87077; 87086; 87088; 87186; 90670; 92507; 92523; 97110; 97112; 97116; 97127; 97150; 97162; 97167; 97530; 97542

== ENCOUNTER 2018-12-24 11:26 | Emergency (ER) | payer OTHER ==
--- NOTE | 2018-12-24 13:21 | ER ---
Nurse's Notes [facility] Name: Mariely Bass Age: 82 yrs Sex: Female : 1935 Arrival Date: 12/24/2018 Time: 11:31 Bed 14 Private MD: Eduin Araiza E Diagnosis: Hypertensive heart disease-Poorly controlled Presentation: 12/24 11:51 Presenting complaint: Child states: hx of stroke and her BP has been running high, was iw in 180 systolic, was advised by her home health nurse to be evaluated in ER, denies headache or dizziness, c/o "tickling in throat" X 1 week, and dry cough. Transition of care: patient was not received from another setting of care. Onset of symptoms was December 24, 2018. Risk Assessment: Do you want to hurt yourself or someone else? Patient reports no desire to harm self or others. Initial Sepsis Screen: Does the patient meet any 2 criteria? No. Patient's initial sepsis screen is negative. Does the patient have a suspected source of infection? No. Patient's initial sepsis screen is negative. Care prior to arrival: None. 11:51 Method Of Arrival: Ambulatory iw 11:51 Acuity: RUDDY 3 iw Historical: - Allergies: 11:55 PENICILLINS; iw 11:55 Peanut; iw - Home Meds: 11:55 cranberry 400 mg oral cap daily [Active]; metoprolol tartrate 25 mg Oral tab 1 tab once iw daily [Active]; Eliquis 2.5 mg oral tab 1 tab 2 times per day [Active]; duloxetine 20 mg oral cpDR 1 cap daily [Active]; atorvastatin 40 mg oral tab 1 tab once daily [Active]; folic acid 1 mg Oral tab 1 tab once daily [Active]; levothyroxine 25 mcg tab 1 tab once daily [Active]; Vitamin B-12 Oral daily [Active]; aspirin 81 mg Oral TbEC 1 tab once daily [Active]; Centrum oral daily [Active]; clonidine HCl 0.1 mg Oral tab 1 tab 2 times per day [Active]; Coricidin HBP 10-200 mg oral cap [Active]; - PMHx: 11:55 breast cancer; Hypothyroidism; iw - PSHx: 11:55 Tubal ligation; iw - Immunization history:: Adult Immunizations not up to date. - Social history:: Smoking status: Patient/guardian denies using tobacco. - Ebola Screening: : Patient negative for fever greater than or equal to 101.5 degrees Fahrenheit, and additional compatible Ebola Virus Disease symptoms Patient denies exposure to infectious person Patient denies travel to an Ebola-affected area in the 21 days before illness onset No symptoms or risks identified at this time. Screenin:30 Abuse screen: Denies threats or abuse. Denies injuries from another. Nutritional sg screening: No deficits noted. Tuberculosis screening: No symptoms or risk factors identified. Never had TB. Fall Risk None identified. Assessment: 12:30 General: Appears in no apparent distress. well groomed, well developed, well nourished, sg Behavior is calm, cooperative, appropriate for age. Pain: Denies pain. Neuro: Level of Consciousness is awake, alert, obeys commands, Oriented to person, place, time, situation, Speech is normal, Facial symmetry appears normal, Denies weakness blurred vision dizziness, difficulty swallowing, paresthesias numbness headache photophobia diplopia. Cardiovascular: Capillary refill is brisk in bilateral fingers Patient's skin is warm and dry. Chest pain is denied. Respiratory: Airway is patent Respiratory effort is even, unlabored, Respiratory pattern is regular, symmetrical. GI: Abdomen is round non-distended. : No signs and/or symptoms were reported regarding the genitourinary system. EENT: No signs and/or symptoms were reported regarding the EENT system. Derm: Skin is pink, warm \\T\\ dry. Musculoskeletal: No signs and/or symptoms reported regarding the musculoskeletal system. 14:07 Reassessment: Patient appears in no apparent distress at this time. Manual BP sg recordings reported to , ordered to dc pt to home. Vital Signs: 11:56 BP 151 / 72; Pulse 65; Resp 16; Temp 99.6(TE); Pulse Ox 97% on R/A; Weight 83.91 kg; iw Height 5 ft. 4 in. (162.56 cm); Pain 0/10; 13:33 BP 199 / 96 LA Sitting (auto/reg); Pulse 72 MON; sg 13:50 BP 150 / 90 LA Sitting (man/reg); Pulse 72; Resp 16 S; Pulse Ox 98% on R/A; sg 14:07 BP 142 / 80 LA Sitting (man/reg); Pulse 67; Pulse Ox 98% on R/A; sg 11:56 Body Mass Index 31.75 (83.91 kg, 162.56 cm) iw 13:33 at bedside evaluating pt, orders recieved to repeat BP x2 10-15 mins apart sg ED Course: 11:31 Patient arrived in ED. rg4 11:33 Eduin Araiza MD is Private Physician. rg4 11:53 Triage completed. iw 11:56 Arm band placed on. iw 12:30 Patient has correct armband on for positive identification. Bed in low position. Call sg light in reach. Pulse ox on. NIBP on. Head of bed elevated. 12:30 No provider procedures requiring assistance completed. Patient did not have IV access sg during this emergency room visit. 12:42 Niall Blanchard MD is Attending Physician. kdr 12:51 Michael Moore RN is Primary Nurse. sg 13:20 Eduin Araiza MD is Referral Physician. kdr Administered Medications: No medications were administered Outcome: 13:20 Discharge ordered by . kdr 14:22 Discharged to home ambulatory, with family, with friend. sg 14:22 Condition: good 14:22 Discharge instructions given to family, professional architect, Instructed on discharge instructions, follow up and referral plans. safety practices, Demonstrated understanding of instructions, follow-up care, Prescriptions given X 14:27 Patient left the ED. sg Signatures: Michael Moore, RN RN Niall Blanchard MD MD kdr Amena Michel RN RN iw Sunita Stewart rg4
--- NOTE | 2018-12-24 13:21 | EDPHYS ---
Physician Documentation [facility] Name: Mariely Bass Age: 82 yrs Sex: Female : 1935 Arrival Date: 12/24/2018 Time: : Bed 14 Private MD: Eduin Araiza E ED Physician Niall Blanchard HPI: 12/24 13:21 This 82 yrs old Female presents to ER via Ambulatory with complaints of High kdr Blood Pressure. 13:21 The patient has elevated blood pressure and discovered this at home, with a home kdr device. Onset: The symptoms/episode began/occurred This is an ongoing and intermittent problem. Modifying factors: The symptoms are aggravated by The symptoms are alleviated by. Associated signs and symptoms: Pertinent positives: Sinus congestion. Severity of symptoms: At its worst the blood pressure was moderate, in the emergency department the blood pressure is unchanged. The patient has not experienced similar symptoms in the past. The patient has not recently seen a physician. Historical: - Allergies: 11:55 PENICILLINS; iw 11:55 Peanut; iw - Home Meds: 11:55 cranberry 400 mg oral cap daily [Active]; metoprolol tartrate 25 mg Oral tab 1 tab once iw daily [Active]; Eliquis 2.5 mg oral tab 1 tab 2 times per day [Active]; duloxetine 20 mg oral cpDR 1 cap daily [Active]; atorvastatin 40 mg oral tab 1 tab once daily [Active]; folic acid 1 mg Oral tab 1 tab once daily [Active]; levothyroxine 25 mcg tab 1 tab once daily [Active]; Vitamin B-12 Oral daily [Active]; aspirin 81 mg Oral TbEC 1 tab once daily [Active]; Centrum oral daily [Active]; clonidine HCl 0.1 mg Oral tab 1 tab 2 times per day [Active]; Coricidin HBP 10-200 mg oral cap [Active]; - PMHx: 11:55 breast cancer; Hypothyroidism; iw - PSHx: 11:55 Tubal ligation; iw - Immunization history:: Adult Immunizations not up to date. - Social history:: Smoking status: Patient/guardian denies using tobacco. - Ebola Screening: : Patient negative for fever greater than or equal to 101.5 degrees Fahrenheit, and additional compatible Ebola Virus Disease symptoms Patient denies exposure to infectious person Patient denies travel to an Ebola-affected area in the 21 days before illness onset No symptoms or risks identified at this time. ROS: 13:21 Constitutional: Negative for fever, chills, and weight loss, Eyes: Negative for injury, kdr pain, redness, and discharge, Neck: Negative for injury, pain, and swelling, Cardiovascular: Negative for chest pain, palpitations, and edema, Respiratory: Negative for shortness of breath, cough, wheezing, and pleuritic chest pain, Abdomen/GI: Negative for abdominal pain, nausea, vomiting, diarrhea, and constipation, Back: Negative for injury and pain, : Negative for injury, bleeding, discharge, and swelling, MS/Extremity: Negative for injury and deformity, Skin: Negative for injury, rash, and discoloration, Neuro: Negative for headache, weakness, numbness, tingling, and seizure activity. Psych: Negative for depression, anxiety, suicide ideation, homicidal ideation, and hallucinations, Allergy/Immunology: Negative for hives, rash, and allergies, Endocrine: Negative for neck swelling, polydipsia, polyuria, polyphagia, and marked weight changes, Hematologic/Lymphatic: Negative for swollen nodes, abnormal bleeding, and unusual bruising. 13:21 ENT: Positive for sinus congestion. Exam: 13:21 Constitutional: This is a well developed, well nourished patient who is awake, alert, kdr and in no acute distress. Head/Face: Normocephalic, atraumatic. Eyes: Pupils equal round and reactive to light, extra-ocular motions intact. Lids and lashes normal. Conjunctiva and sclera are non-icteric and not injected. Cornea within normal limits. Periorbital areas with no swelling, redness, or edema. Neck: Trachea midline, no thyromegaly or masses palpated, and no cervical lymphadenopathy. Supple, full range of motion without nuchal rigidity, or vertebral point tenderness. No Meningismus. Chest/axilla: Normal chest wall appearance and motion. Nontender with no deformity. No lesions are appreciated. Cardiovascular: Regular rate and rhythm with a normal S1 and S2. No gallops, murmurs, or rubs. Normal PMI, no JVD. No pulse deficits. Respiratory: Lungs have equal breath sounds bilaterally, clear to auscultation and percussion. No rales, rhonchi or wheezes noted. No increased work of breathing, no retractions or nasal flaring. Abdomen/GI: Soft, non-tender, with normal bowel sounds. No distension or tympany. No guarding or rebound. No evidence of tenderness throughout. Back: No spinal tenderness. No costovertebral tenderness. Full range of motion. Skin: Warm, dry with normal turgor. Normal color with no rashes, no lesions, and no evidence of cellulitis. MS/ Extremity: Pulses equal, no cyanosis. Neurovascular intact. Full, normal range of motion. Neuro: Awake and alert, GCS 15, oriented to person, place, time, and situation. Cranial nerves II-XII grossly intact. Motor strength 5/5 in all extremities. Sensory grossly intact. Cerebellar exam normal. Normal gait. Psych: Awake, alert, with orientation to person, place and time. Behavior, mood, and affect are within normal limits. Vital Signs: 11:56 BP 151 / 72; Pulse 65; Resp 16; Temp 99.6(TE); Pulse Ox 97% on R/A; Weight 83.91 kg; iw Height 5 ft. 4 in. (162.56 cm); Pain 0/10; 13:33 BP 199 / 96 LA Sitting (auto/reg); Pulse 72 MON; sg 13:50 BP 150 / 90 LA Sitting (man/reg); Pulse 72; Resp 16 S; Pulse Ox 98% on R/A; sg 14:07 BP 142 / 80 LA Sitting (man/reg); Pulse 67; Pulse Ox 98% on R/A; sg 11:56 Body Mass Index 31.75 (83.91 kg, 162.56 cm) iw 13:33 at bedside evaluating pt, orders recieved to repeat BP x2 10-15 mins apart sg MDM: 13:20 Patient medically screened. kdr 13:21 Data reviewed: vital signs, nurses notes. Counseling: I had a detailed discussion with kdr the patient and/or guardian regarding: the historical points, exam findings, and any diagnostic results supporting the discharge/admit diagnosis, the need for outpatient follow up. ED course: The patient hasn't had any focal or global complaints other than sinus congestion. Administered Medications: No medications were administered Disposition: 12/24/18 13:20 Discharged to Home. Impression: Hypertensive heart disease - Poorly controlled. - Condition is Stable. - Discharge Instructions: Hypertension, [id number]. - Medication Reconciliation Form, Thank You Letter form. - Follow up: Eduin Araiza MD; When: 2 - 3 days; Reason: If symptoms return, Further diagnostic work-up, Recheck today's complaints, Continuance of care, Re-evaluation by your physician. - Problem is chronic. - Symptoms have improved. Signatures: Michael Moore RN RN sg Niall Blanchard MD MD [facility] Amena Michel RN RN iw Corrections: (The following items were deleted from the chart) 14:27 13:20 12/24/2018 13:20 Discharged to Home. Impression: Hypertensive heart disease - sg Poorly controlled. Condition is Stable. Forms are Medication Reconciliation Form, Thank You Letter, Antibiotic Education, Prescription Opioid Use. Follow up: Eduin Araiza; When: 2 - 3 days; Reason: If symptoms return, Further diagnostic work-up, Recheck today's complaints, Continuance of care, Re-evaluation by your physician. Problem is chronic. Symptoms have improved. kdr
[2018-12-24 14:32] VITALS: TEMP 99.6
[2018-12-24 14:35] VITALS: O2SAT 98
[2018-12-24 14:36] VITALS: BP 142/80
== END 2018-12-24 14:27 | disposition home or self-care (01) ==
LOC: ER 11:26
DX: I11.9 Hypertensive heart disease without heart failure (principal); Z88.0 Allergy status to penicillin; Z91.010 Allergy to peanuts; Z79.01 Long term (current) use of anticoagulants; Z79.82 Long term (current) use of aspirin
CPT/HCPCS: 99283

== ENCOUNTER 2019-08-17 15:12 | Emergency (ER) | payer OTHER ==
[2019-08-17 16:06] LABS: Absolute Lymphocytes (CBC) 1.5 K/uL (0.7-4.9); Basophils % 1.2 % (0-1.3); Lymphocytes % 19.8 % (15.3-44.8); MPV 10.2 fL (7.6-11.3); RBC Red Blood Cell Count 4.41 M/uL (3.86-4.86)
[2019-08-17 16:09] LABS: Protime INR 2.07
--- NOTE | 2019-08-17 16:16 | RAD REPORT ---
EXAM DESCRIPTION: CT - Head Brain Wo Cont - 08/17/2019 4:10 pm CLINICAL HISTORY: Transient alteration of awareness, weight loss, history of breast cancer COMPARISON: CT head September 2018 TECHNIQUE: Axial 5 mm thick images of the head were obtained without IV contrast. All CT scans are performed using dose optimization technique as appropriate and may include automated exposure control or mA/KV adjustment according to patient size. FINDINGS: No intracranial hemorrhage, mass, edema or shift of mid-line structures. No acute infarcti on changes seen. Atrophy and chronic ischemic changes are present. Ventricles are in proportion to th e volume loss. Intracranial findings are similar to comparison. Arterial tree calcifications are pres ent. Mastoid air cells and visualized portions of the paranasal sinuses are clear. No acute bony findings. IMPRESSION: Atrophy and chronic ischemic changes are present similar to comparison. No acute intracr anial finding. Chronic ischemic changes can mask nonhemorrhagic acute infarction. MR brain followup can be obtained if there is ongoing concern for acute ischemia.
[2019-08-17 16:31] LABS: Albumin 3.6 g/dL (3.4-5.0); Bilirubin Direct 0.3 mg/dL (0-0.2); Magnesium 1.8 mg/dL (1.8-2.4); Potassium 3.5 mmol/L (3.5-5.1); Protein, Total 7.4 g/dL (6.4-8.2); Troponin (Emerg Dept Use Only) 0.03 ng/mL (0.0-0.045)
[2019-08-17] MEDS ORDERED: CEFTRIAXONE/SWI 1gm 1 GM/10 ML SYR ONE (16:32)
--- NOTE | 2019-08-17 16:42 | RAD REPORT ---
EXAM DESCRIPTION: RAD - Chest Single View - 08/17/2019 4:08 pm CLINICAL HISTORY: Cough, altered mental status COMPARISON: September 2018 TECHNIQUE: AP portable chest image was obtained 1602 hour . FINDINGS: No peripheral mass or consolidation. Baseline interstitial pattern is fractionally increas ed. Central vasculature and heart size also fractionally increased. Trachea is midline. No measurable pleural effusion and no pneumothorax. No acute bony abnormality seen. No acute aortic findings suspe cted. IMPRESSION: Heart, vasculature and lung markings are all slightly increased from comparison. Correlation is needed with any mild failure or volume overload findings.
[2019-08-17 17:13] LABS: Urine Blood TRACE (NEG); Urine Glucose NEGATIVE (NEG); Urine Protein 1+ (NEG)
--- NOTE | 2019-08-17 17:47 | EDPHYS ---
Physician Documentation [facility] Name: Mariely Bass Age: 83 yrs Sex: Female : 1935 Arrival Date: 08/17/2019 Time: 15:11 Bed 14 Private MD: KIERAN Physician Mynor Medina HPI: 08/17 17:29 This 83 yrs old Female presents to ER via EMS with complaints of Altered kashmir Mental Status. 17:29 The patient presents with trouble concentrating. Onset: The symptoms/episode kashmir began/occurred 3 day(s) ago. Possible causes: unknown. Associated signs and symptoms: Pertinent positives: confusion. Patient's baseline: Motor: no deficits. The patient has experienced similar episodes in the past. Historical: - Allergies: 15:30 Peanut; iw 15:30 PENICILLINS; iw - Home Meds: 17:28 aspirin 81 mg Oral TbEC 1 tab once daily [Active]; atorvastatin 40 mg Oral tab 1 tab iw once daily [Active]; Centrum Oral daily [Active]; clonidine HCl 0.1 mg Oral tab 1 tab 2 times per day [Active]; Coricidin HBP 10-200 mg Oral cap [Active]; cranberry 400 mg Oral cap daily [Active]; duloxetine 20 mg Oral cpDR 1 cap daily [Active]; Eliquis 2.5 mg Oral tab 1 tab 2 times per day [Active]; folic acid 1 mg Oral tab 1 tab once daily [Active]; levothyroxine 25 mcg tab 1 tab once daily [Active]; metoprolol tartrate 25 mg Oral tab 1 tab once daily [Active]; Vitamin B-12 Oral daily [Active]; - PMHx: 15:30 breast cancer; Hypothyroidism; CVA; Dementia; iw - PSHx: 15:30 Tubal ligation; Mastectomy; iw - Immunization history:: Adult Immunizations up to date. - Social history:: Smoking status: Patient denies any tobacco usage or history of. Patient/guardian denies using. - Ebola Screening: : Patient negative for fever greater than or equal to 101.5 degrees Fahrenheit, and additional compatible Ebola Virus Disease symptoms Patient denies exposure to infectious person Patient denies travel to an Ebola-affected area in the 21 days before illness onset No symptoms or risks identified at this time. - Family history:: not pertinent. ROS: 17:29 Constitutional: Negative for fever, chills, and weight loss, Eyes: Negative for injury, kashmir pain, redness, and discharge, ENT: Negative for injury, pain, and discharge, Neck: Negative for injury, pain, and swelling, Cardiovascular: Negative for chest pain, palpitations, and edema, Respiratory: Negative for shortness of breath, cough, wheezing, and pleuritic chest pain, Back: Negative for injury and pain, : Negative for injury, bleeding, discharge, and swelling, MS/Extremity: Negative for injury and deformity, Skin: Negative for injury, rash, and discoloration, Psych: Negative for depression, anxiety, suicide ideation, homicidal ideation, and hallucinations, Allergy/Immunology: Negative for hives, rash, and allergies, Endocrine: Negative for neck swelling, polydipsia, polyuria, polyphagia, and marked weight changes, Hematologic/Lymphatic: Negative for swollen nodes, abnormal bleeding, and unusual bruising. 17:29 Abdomen/GI: Positive for anorexia. Exam: 17:29 Constitutional: This is a well developed, well nourished patient who is awake, alert, kashmir and in no acute distress. Head/Face: Normocephalic, atraumatic. Eyes: Pupils equal round and reactive to light, extra-ocular motions intact. Lids and lashes normal. Conjunctiva and sclera are non-icteric and not injected. Cornea within normal limits. Periorbital areas with no swelling, redness, or edema. ENT: Nares patent. No nasal discharge, no septal abnormalities noted. Tympanic membranes are normal and external auditory canals are clear. Oropharynx with no redness, swelling, or masses, exudates, or evidence of obstruction, uvula midline. Mucous membranes moist. Neck: Trachea midline, no thyromegaly or masses palpated, and no cervical lymphadenopathy. Supple, full range of motion without nuchal rigidity, or vertebral point tenderness. No Meningismus. Chest/axilla: Normal chest wall appearance and motion. Nontender with no deformity. No lesions are appreciated. Cardiovascular: Regular rate and rhythm with a normal S1 and S2. No gallops, murmurs, or rubs. Normal PMI, no JVD. No pulse deficits. Respiratory: Lungs have equal breath sounds bilaterally, clear to auscultation and percussion. No rales, rhonchi or wheezes noted. No increased work of breathing, no retractions or nasal flaring. Back: No spinal tenderness. No costovertebral tenderness. Full range of motion. Female : Normal external genitalia. Skin: Warm, dry with normal turgor. Normal color with no rashes, no lesions, and no evidence of cellulitis. MS/ Extremity: Pulses equal, no cyanosis. Neurovascular intact. Full, normal range of motion. Psych: Awake, alert, with orientation to person, place and time. Behavior, mood, and affect are within normal limits. 17:29 Abdomen/GI: Inspection: abdomen appears normal, Bowel sounds: normal, Palpation: abdomen is soft and non-tender, Liver: no appreciated palpable abnormalities, Hernia: not appreciated. Vital Signs: 15:30 BP 188 / 74; Pulse 58; Resp 16; Temp 98.6; Pulse Ox 97% on R/A; Weight 55.34 kg; Pain iw 0/10; 17:23 BP 173 / 65; Pulse 64; Resp 16; Pulse Ox 98% on R/A; Pain 0/10; iw MDM: 15:43 Patient medically screened. [facility] 17:35 Data reviewed: vital signs, nurses notes, lab test result(s), EKG, radiologic studies, [facility] CT scan, plain films. 08/17 15:47 Order name: Basic Metabolic Panel; Complete Time: 17:34 [facility] 08/17 15:47 Order name: CBC with Diff; Complete Time: 17:34 [facility] 08/17 15:47 Order name: LFT's; Complete Time: 17:34 [facility] 08/17 15:47 Order name: Magnesium; Complete Time: 17:34 [facility] 08/17 15:47 Order name: NT PRO-BNP; Complete Time: 17:34 [facility] 08/17 15:47 Order name: PT-INR; Complete Time: 17:34 [facility] 08/17 15:47 Order name: Troponin (emerg Dept Use Only); Complete Time: 17:34 [facility] 08/17 15:47 Order name: XRAY Chest (1 view); Complete Time: 17:34 [facility] 08/17 15:47 Order name: EKG; Complete Time: 15:48 [facility] 08/17 15:47 Order name: Urine Culture [facility] 08/17 15:47 Order name: Lipase; Complete Time: 17:34 [facility] 08/17 15:47 Order name: CT Head Brain wo Cont; Complete Time: 17:34 [facility] 08/17 17:06 Order name: Urine Dipstick--Ancillary (enter results); Complete Time: 17:34 08/17 15:47 Order name: Cardiac monitoring; Complete Time: 16:10 [facility] 08/17 15:47 Order name: EKG - Nurse/Tech; Complete Time: 16:10 [facility] 08/17 15:47 Order name: IV Saline Lock; Complete Time: 16:10 [facility] 08/17 15:47 Order name: Labs collected and sent; Complete Time: 16:10 [facility] 08/17 15:47 Order name: O2 Per Protocol; Complete Time: 16:54 [facility] 08/17 15:47 Order name: O2 Sat Monitoring; Complete Time: 16:54 [facility] 08/17 15:47 Order name: Urine Dipstick-Ancillary (obtain specimen); Complete Time: 16:50 [facility] 08/17 17:45 Order name: Diet Regular; Complete Time: 17:46 [facility] 08/17 17:45 Order name: PO challenge: juice; Complete Time: 18:00 [facility] Administered Medications: 16:46 Drug: Rocephin 1 grams Route: IV; Rate: per protocol; Site: right antecubital; iw Disposition: 08/17/19 17:46 Discharged to Home. Impression: Weakness, Anorexia, Urinary tract infection, site not specified. - Condition is Stable. - Discharge Instructions: Urinary Tract Infection, Adult, Weakness, Urinary Tract Infection, Adult, [id number], Weakness, [id number]. - Prescriptions for Ceftin 250 mg Oral Tablet - take 1 tablet by ORAL route every 12 hours for 7 days; 14 tablet. - Medication Reconciliation Form, Thank You Letter, Antibiotic Education, Prescription Opioid Use form. - Follow up: Private Physician; When: 2 - 3 days; Reason: Recheck today's complaints, Continuance of care, Re-evaluation by your physician. - Problem is new. - Symptoms have improved. Signatures: Dispatcher [employer] Mynor Vela MD MD cha Williams, Irene, RN RN iw Corrections: (The following items were deleted from the chart) 18:33 17:46 08/17/2019 17:46 Discharged to Home. Impression: Weakness; Anorexia; Urinary iw tract infection, site not specified. Condition is Stable. Forms are Medication Reconciliation Form, Thank You Letter, Antibiotic Education, Prescription Opioid Use. Follow up: Private Physician; When: 2 - 3 days; Reason: Recheck today's complaints, Continuance of care, Re-evaluation by your physician. Problem is new. Symptoms have improved. [place]
--- NOTE | 2019-08-17 17:47 | ER ---
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 Transition of care: patient was not received from another setting of care. Onset of symptoms was August 01, 2019. Risk Assessment: Do you want to hurt yourself or someone else? Patient reports no desire to harm self or others. Initial Sepsis Screen: Does the patient meet any 2 criteria? No. Patient's initial sepsis screen is negative. Does the patient have a suspected source of infection? No. Patient's initial sepsis screen is negative. Care prior to arrival: Glucose check: 126. 15:25 Method Of Arrival: EMS: [facility] iw 15:25 Acuity: RUDDY 3 iw Triage Assessment: 18:25 General: Appears in no apparent distress. Behavior is calm, cooperative. iw Historical: - Allergies: 15:30 Peanut; iw 15:30 PENICILLINS; iw - Home Meds: 17:28 aspirin 81 mg Oral TbEC 1 tab once daily [Active]; atorvastatin 40 mg Oral tab 1 tab iw once daily [Active]; Centrum Oral daily [Active]; clonidine HCl 0.1 mg Oral tab 1 tab 2 times per day [Active]; Coricidin HBP 10-200 mg Oral cap [Active]; cranberry 400 mg Oral cap daily [Active]; duloxetine 20 mg Oral cpDR 1 cap daily [Active]; Eliquis 2.5 mg Oral tab 1 tab 2 times per day [Active]; folic acid 1 mg Oral tab 1 tab once daily [Active]; levothyroxine 25 mcg tab 1 tab once daily [Active]; metoprolol tartrate 25 mg Oral tab 1 tab once daily [Active]; Vitamin B-12 Oral daily [Active]; - PMHx: 15:30 breast cancer; Hypothyroidism; CVA; Dementia; iw - PSHx: 15:30 Tubal ligation; Mastectomy; iw - Immunization history:: Adult Immunizations up to date. - Social history:: Smoking status: Patient denies any tobacco usage or history of. Patient/guardian denies using. - Ebola Screening: : Patient negative for fever greater than or equal to 101.5 degrees Fahrenheit, and additional compatible Ebola Virus Disease symptoms Patient denies exposure to infectious person Patient denies travel to an Ebola-affected area in the 21 days before illness onset No symptoms or risks identified at this time. - Family history:: not pertinent. Screenin:24 Abuse screen: Denies threats or abuse. Denies injuries from another. Nutritional iw screening: No deficits noted. Tuberculosis screening: No symptoms or risk factors identified. Fall Risk IV access (20 points). Assessment: 15:40 General: Appears in no apparent distress. Behavior is calm, cooperative. Pain: Denies iw pain. Neuro: Level of Consciousness is awake, alert, obeys commands, Oriented to person, place, Moves all extremities. Full function. Cardiovascular: Capillary refill < 3 seconds in bilateral fingers Patient's skin is warm and dry. Respiratory: Airway is patent Respiratory effort is even, unlabored, Respiratory pattern is regular, symmetrical. GI: Abdomen is non-distended. : Reports currently on antibiotics (macrobid) twice a day, has had two doses. Derm: Skin is intact, is healthy with good turgor. Musculoskeletal: Range of motion: intact in all extremities. 17:24 Reassessment: Patient appears in no apparent distress at this time. Patient and/or iw family updated on plan of care and expected duration. Pain level reassessed. pt VSS, caregiver at bedside, awaiting doctor to explain POC Patient states feeling better. 18:15 Reassessment: pt sitting up eating, pt ate turkey sandwich and drank strawberry ensure. iw Vital Signs: 15:30 BP 188 / 74; Pulse 58; Resp 16; Temp 98.6; Pulse Ox 97% on R/A; Weight 55.34 kg; Pain iw 0/10; 17:23 BP 173 / 65; Pulse 64; Resp 16; Pulse Ox 98% on R/A; Pain 0/10; iw ED Course: 15:11 Patient arrived in ED. iw 15:23 Amena Michel, RN is Primary Nurse. iw 15:29 Triage completed. iw 15:30 Arm band placed on. iw 15:43 Mynor Medina MD is Attending Physician. kashmir 15:45 EKG done, by insulation technician. reviewed by Mynor Medina MD. at1 16:07 Initial lab(s) drawn, by fl, sent to lab. Inserted saline lock: 22 gauge in right mh5 antecubital area, using aseptic technique. Blood collected. 16:08 Patient has correct armband on for positive identification. Placed in gown. Bed in low mh5 position. Call light in reach. Side rails up X2. Adult w/ patient. Warm blanket given. Pillow given. security monitor on. Pulse ox on. NIBP on. 16:09 XRAY Chest (1 view) In Process Unspecified. EDMS 16:09 Lipase Sent. mh5 16:09 Basic Metabolic Panel Sent. 5 16:09 LFT's Sent. mh5 16:09 Magnesium Sent. mh5 16:10 CT Head Brain wo Cont In Process Unspecified. EDMS 16:10 NT PRO-BNP Sent. mh5 16:10 PT-INR Sent. mh5 16:10 Troponin (emerg Dept Use Only) Sent. mh5 16:50 Urine Culture Sent. mh5 16:52 Urine collected: straight cath specimen, ORANGE AND CLOUDY. Straight cath inserted, mh5 using sterile technique, 16 Fr. Specimen obtained. 16:53 Urine Culture Sent. 5 18:32 No provider procedures requiring assistance completed. IV discontinued, intact, iw bleeding controlled, No redness/swelling at site. Pressure dressing applied. Administered Medications: 16:46 Drug: Rocephin 1 grams Route: IV; Rate: per protocol; Site: right antecubital; iw Outcome: 17:46 Discharge ordered by . kashmir 18:32 Discharged to home via wheelchair, with family, with friend. iw 18:32 Condition: good 18:32 Discharge instructions given to patient, family, friend, Instructed on discharge instructions, follow up and referral plans. medication usage, Demonstrated understanding of instructions, follow-up care, medications, Prescriptions given X 1. 18:33 Patient left the ED. iw Signatures: Dispatcher [employer] Mynor Vela MD MD cha Williams, Irene, RN RN Jennifer Caraballo, performance reporter [facility] Brynn Paula [facility]
[2019-08-17 19:14] VITALS: TEMP 98.6
[2019-08-17 19:15] VITALS: BP 173/65; O2SAT 98
--- NOTE | 2019-08-19 14:04 | EKG ---
Test Date: 2019-08-17 Test Time: 15:40:47 Bluing Oven Tender: MERLENE MEASUREMENT RESULTS: Intervals: Rate: 53 [place]: QRSD: 80 QT: 472 QTc: 442 [place]: P: [place]: QRS: 48 T: 36 INTERPRETIVE STATEMENTS: Atrial fibrillation with slow ventricular response Anterior infarct, age undetermined Abnormal ECG Compared to ECG 10/05/2018 08:30:09 Myocardial infarct finding now present Electronically Signed On 08-19-19 13:59:44 NON LINEAR EDITOR by Abraham Cortés
== END 2019-08-17 18:33 | disposition home or self-care (01) ==
LOC: ER 15:12
DX: N39.0 Urinary tract infection, site not specified (principal); R53.1 Weakness; R63.0 Anorexia; E03.9 Hypothyroidism, unspecified; F03.90 Unspecified dementia, unspecified severity, without behavioral disturbance, psychotic disturbance, mood disturbance, and anxiety; Z85.3 Personal history of malignant neoplasm of breast; Z79.01 Long term (current) use of anticoagulants; Z79.82 Long term (current) use of aspirin; Z88.0 Allergy status to penicillin; Z91.010 Allergy to peanuts
CPT/HCPCS: 93005; 87088; 85025; 80048; 36415; 83735; 85610; 80076; 81003; 84484; 83690; 83880; 70450; 71045; 51702; 96374; 99285; J0696; 87086

== ENCOUNTER 2019-08-28 16:00 | Inpatient (IN) | payer OTHER ==
--- NOTE | 2019-08-28 16:43 | RAD REPORT ---
EXAM DESCRIPTION: CT - Head Brain Wo Cont - 08/28/2019 4:26 pm CLINICAL HISTORY: Declining state, transient alteration of awareness, breast cancer history COMPARISON: CT head August 17 TECHNIQUE: Axial 5 mm thick images of the head were obtained without IV contrast. All CT scans are performed using dose optimization technique as appropriate and may include automated exposure control or mA/KV adjustment according to patient size. FINDINGS: No intracranial hemorrhage, mass, edema or shift of mid-line structures. No acute cortical based infarction. No cortical edema or sulcal effacement. Prominent atrophy and chronic ischemic kashmir nges match comparison. No abnormal extra-axial fluid collections. Ventricles are in proportion to vol ume loss. Mastoid air cells and visualized portions of the paranasal sinuses are clear. No acute bony findings. IMPRESSION: No acute intracranial finding. Atrophy and chronic ischemic change match the short interval August 17 comparison.
[2019-08-28 16:59] LABS: Absolute Lymphocytes (CBC) 2.5 K/uL (0.7-4.9); Basophils % 0.8 % (0-1.3); Hematocrit 41.2 % (36.0-45.0); Lymphocytes % 25.3 % (15.3-44.8); MPV 10.6 fL (7.6-11.3); RBC Red Blood Cell Count 4.45 M/uL (3.86-4.86)
[2019-08-28] MEDS ORDERED: NA CHLORIDE 0.9% 1,000 ML ONE (17:04)
[2019-08-28] MEDS ORDERED: NA CHLORIDE 0.9% 500 ML ONE (17:04)
--- NOTE | 2019-08-28 17:04 | RAD REPORT ---
EXAM DESCRIPTION: RAD - Chest Single View - 08/28/2019 4:56 pm CLINICAL HISTORY: COUGH COMPARISON: Chest Single View dated 08/17/2019 TECHNIQUE: AP portable chest image was obtained 08/28/2019 4:56 pm . FINDINGS: Fibrotic lung pattern matches comparison. No mass or infiltrate. No significant failure or volume overload. Heart and vasculature are normal. No measurable pleural effusion and no pneumothora x. No acute bony abnormality seen. No acute aortic findings suspected. IMPRESSION: Prominent, chronic interstitial lung pattern not substantially different from comparison . Severity of disease can mask early interstitial edema or infiltrate.
[2019-08-28 17:09] LABS: Protime INR 2.08
[2019-08-28 17:23] LABS: Albumin 3.7 g/dL (3.4-5.0); Bilirubin Direct 0.3 mg/dL (0-0.2); Bilirubin Total 0.6 mg/dL (0.2-1.0); Magnesium 1.9 mg/dL (1.8-2.4); Potassium 3.2 mmol/L (3.5-5.1); Protein, Total 7.5 g/dL (6.4-8.2); Thyroid Stimulating Hormone 0.15 uIU/mL (0.360-3.740); Troponin (Emerg Dept Use Only) 0.03 ng/mL (0.0-0.045)
--- NOTE | 2019-08-28 18:19 | ER ---
Nurse's Notes [facility] Name: Mariely Bass Age: 83 yrs Sex: Female : 1935 Arrival Date: 08/28/2019 Time: 16:04 Bed 4 Private MD: Diagnosis: Altered mental status, unspecified;Dementia in other diseases classified elsewhere;Volume depletion;Hypokalemia;Urinary tract infection, site not specified;Unspecified kidney failure Presentation: 08/28 16:04 Presenting complaint: EMS states: AUDIOVISUAL HALLUCINATIONS SINCE MED CHANGE. bp Transition of care: patient was not received from another setting of care. Onset of symptoms is unknown. Risk Assessment: Do you want to hurt yourself or someone else? Patient reports no desire to harm self or others. Initial Sepsis Screen: Does the patient meet any 2 criteria? No. Patient's initial sepsis screen is negative. Does the patient have a suspected source of infection? No. Patient's initial sepsis screen is negative. Care prior to arrival: None. 16:04 Method Of Arrival: EMS: [facility] bp 16:04 Acuity: RUDDY 3 bp Triage Assessment: 16:07 General: Appears in no apparent distress. comfortable, Behavior is cooperative, bp anxious, CONFUSED. Pain: Denies pain. EENT: No deficits noted. Neuro: Level of Consciousness is awake, obeys commands, confused, Oriented to person. Cardiovascular: Rhythm is sinus rhythm. Respiratory: No deficits noted. GI: No signs and/or symptoms were reported involving the gastrointestinal system. : No signs and/or symptoms were reported regarding the genitourinary system. Derm: No deficits noted. Musculoskeletal: No deficits noted. Historical: - Allergies: 16:07 Peanut; bp 16:07 PENICILLINS; bp - Home Meds: 16:07 aspirin 81 mg Oral TbEC 1 tab once daily [Active]; atorvastatin 40 mg Oral tab 1 tab bp once daily [Active]; metoprolol tartrate 25 mg Oral tab 1 tab once daily [Active]; Eliquis 2.5 mg Oral tab 1 tab 2 times per day [Active]; duloxetine 20 mg Oral cpDR 1 cap daily [Active]; docusate sodium 100 mg Oral cap 1 cap once daily [Active]; levothyroxine 25 mcg tab 1 tab once daily [Active]; folic acid 1 mg Oral tab 1 tab once daily [Active]; Coricidin HBP 10-200 mg Oral cap [Active]; cranberry 400 mg Oral cap daily [Active]; clonidine HCl 0.2 mg oral tab 1 tab 2 times per day [Active]; Lisinopril Oral [Active]; - PMHx: 16:07 breast cancer; CVA; Dementia; Hypothyroidism; bp - Immunization history:: Adult Immunizations up to date. - Coronavirus screen:: The patient has NOT traveled to [place], [place], or [place] in the past 14 days. The patient has NOT had contact with known/suspected case of Coronavirus?. - Social history:: Smoking status: Patient denies any tobacco usage or history of. - Family history:: not pertinent. - Ebola Screening: : No symptoms or risks identified at this time. Screenin:13 Abuse screen: Denies threats or abuse. Denies injuries from another. Nutritional bp screening: No deficits noted. Tuberculosis screening: No symptoms or risk factors identified. Fall Risk None identified. Assessment: 16:10 General: SEE TRIAGE NOTE. bp 17:17 Reassessment: IVF INFUSING. PO CHALLENGE SUCCESSFUL. PT MENTATION AT BASELINE AT THIS bp TIME. 18:07 Reassessment: ALL CURRENT ORDERS COMPLETED, RESULTS PENDING. PT ABLE TO AMBULATE TO B/S bp COMMODE WITH MINIMAL ASSISTANCE. 19:00 Reassessment: Patient appears in no apparent distress at this time. Patient is alert, rv oriented x 3, equal unlabored respirations, skin warm/dry/pink. Patient denies pain at this time. 20:28 Reassessment: Patient appears in no apparent distress at this time. Patient and/or rv family updated on plan of care and expected duration. Pain level reassessed. Patient is alert, oriented x 3, equal unlabored respirations, skin warm/dry/pink. UPDATED ON THE PLAN OF CARE. PATIENT AGREED FOR ADMISSION. Patient denies pain at this time. 21:52 Reassessment: Patient appears in no apparent distress at this time. Patient and/or rv family updated on plan of care and expected duration. Pain level reassessed. Patient is alert, oriented x 3, equal unlabored respirations, skin warm/dry/pink. Patient denies pain at this time. Vital Signs: 16:10 BP 155 / 83; Pulse 73; Resp 17; Temp 98; Pulse Ox 97% ; bp 17:16 BP 154 / 63; Pulse 66; Resp 16; Pulse Ox 100% ; bp 18:07 BP 98 / 50; Pulse 74; Resp 16; Pulse Ox 98% ; bp 20:28 BP 143 / 86; Pulse 66; Resp 16; Pulse Ox 99% on R/A; rv 21:00 BP 136 / 86; Pulse 71; Resp 16; Pulse Ox 100% on R/A; rv 21:48 BP 134 / 72; Pulse 71; Resp 17; Pulse Ox 100% on R/A; rv ED Course: 16:04 Patient arrived in ED. bp 16:05 Triage completed. bp 16:10 Arm band placed on. bp 16:12 Mynor Medina MD is Attending Physician. kashmir 16:13 Patient has correct armband on for positive identification. Bed in low position. Call bp light in reach. Side rails up X2. 16:16 Blane Wylie, RN is Primary Nurse. bp 16:26 CT Head Brain wo Cont In Process Unspecified. EDMS 16:40 Inserted saline lock: 22 gauge in right forearm, using aseptic technique. Blood bp collected. 16:56 XRAY Chest (1 view) In Process Unspecified. EDMS 18:18 Codey Chisholm DO is Hospitalizing Provider. kashmir 18:50 CT Stone Protocol In Process Unspecified. EDMS 19:03 Primary Nurse role handed off by Blane Wylie, RN rv 19:03 Levi Wilson, JULIAN is Primary Nurse. rv 20:28 No provider procedures requiring assistance completed. rv 21:53 Patient admitted, IV remains in place. rv Administered Medications: Discontinued: NS 0.9% 1000 ml IV at 125 ml/hr continuous 16:30 Drug: NS 0.9% 1000 ml Route: IV; Rate: 125 ml/hr; Site: right forearm; bp 19:27 Follow up: IV Status: Order to discontinue infusion rv 17:00 Drug: NS 0.9% 500 ml Route: IV; Rate: bolus; Site: right forearm; bp 17:30 Follow up: IV Status: Completed infusion; IV Intake: 500ml em 18:20 Drug: Potassium Effervescent Tablet 25 mEq Route: PO; em 18:51 Follow up: Response: No adverse reaction em 18:20 Drug: Rocephin 1 grams Route: IV; Rate: per protocol; Site: right forearm; em 18:52 Follow up: IV Status: Completed infusion; IV Intake: 100ml em 19:00 Drug: NS 0.9% with KCl 20 mEq/L 1000 ml Route: IV; Rate: 125 ml/hr; Site: right forearm;rv 21:49 Follow up: IV Status: Infusion continued upon admission rv Intake: 17:30 IV: 500ml; Total: 500ml. em 18:52 IV: 100ml; Total: 600ml. em Outcome: 18:19 Decision to Hospitalize by Provider. kashmir 21:50 Admitted to Tele accompanied by tech, via wheelchair, room 407, with chart, Report rv called to messi muller 21:50 Condition: good 21:50 Discharge instructions given to patient, family, Instructed on the need for admit, Demonstrated understanding of instructions. 22:21 Patient left the ED. rv Signatures: Dispatcher [employer] Mynor Vela MD MD cha Munoz, Edgar, RN RN em Peltier, Brian, RN RN bp Vicente, Ronaldo RN RN rv
--- NOTE | 2019-08-28 18:19 | EDPHYS ---
Physician Documentation [facility] Name: Mariely Bass Age: 83 yrs Sex: Female : 1935 Arrival Date: 08/28/2019 Time: 16:04 Bed 4 Private MD: ED Physician Mynor Medina HPI: 08/28 18:13 This 83 yrs old Female presents to ER via EMS with complaints of Altered kashmir Mental Status. 18:13 The patient presents with confusion, trouble concentrating. Onset: The symptoms/episode kashmir began/occurred 3 day(s) ago. Possible causes: unknown. Associated signs and symptoms: Pertinent positives: combativeness, confusion, weakness. Current symptoms: In the emergency department the patient's symptoms are unchanged from the initial presentation. Patient's baseline: Neuro: alert but confused, orientated to person, place. The patient has experienced similar episodes in the past, multiple times. Historical: - Allergies: 16:07 Peanut; bp 16:07 PENICILLINS; bp - Home Meds: 16:07 aspirin 81 mg Oral TbEC 1 tab once daily [Active]; atorvastatin 40 mg Oral tab 1 tab bp once daily [Active]; metoprolol tartrate 25 mg Oral tab 1 tab once daily [Active]; Eliquis 2.5 mg Oral tab 1 tab 2 times per day [Active]; duloxetine 20 mg Oral cpDR 1 cap daily [Active]; docusate sodium 100 mg Oral cap 1 cap once daily [Active]; levothyroxine 25 mcg tab 1 tab once daily [Active]; folic acid 1 mg Oral tab 1 tab once daily [Active]; Coricidin HBP 10-200 mg Oral cap [Active]; cranberry 400 mg Oral cap daily [Active]; clonidine HCl 0.2 mg oral tab 1 tab 2 times per day [Active]; Lisinopril Oral [Active]; - PMHx: 16:07 breast cancer; CVA; Dementia; Hypothyroidism; bp - Immunization history:: Adult Immunizations up to date. - Coronavirus screen:: The patient has NOT traveled to [place], [place], or [place] in the past 14 days. The patient has NOT had contact with known/suspected case of Coronavirus?. - Social history:: Smoking status: Patient denies any tobacco usage or history of. - Family history:: not pertinent. - Ebola Screening: : No symptoms or risks identified at this time. ROS: 18:13 Constitutional: Negative for fever, chills, and weight loss, Eyes: Negative for injury, kashmir pain, redness, and discharge, ENT: Negative for injury, pain, and discharge, Neck: Negative for injury, pain, and swelling, Cardiovascular: Negative for chest pain, palpitations, and edema, Abdomen/GI: Negative for abdominal pain, nausea, vomiting, diarrhea, and constipation, Back: Negative for injury and pain, : Negative for injury, bleeding, discharge, and swelling, MS/Extremity: Negative for injury and deformity, Skin: Negative for injury, rash, and discoloration, Psych: Negative for depression, anxiety, suicide ideation, homicidal ideation, and hallucinations, Allergy/Immunology: Negative for hives, rash, and allergies, Endocrine: Negative for neck swelling, polydipsia, polyuria, polyphagia, and marked weight changes, Hematologic/Lymphatic: Negative for swollen nodes, abnormal bleeding, and unusual bruising. 18:13 Neuro: Positive for altered mental status, weakness. Exam: 18:13 Constitutional: This is a well developed, well nourished patient who is awake, alert, akshmir and in no acute distress. Head/Face: Normocephalic, atraumatic. Eyes: Pupils equal round and reactive to light, extra-ocular motions intact. Lids and lashes normal. Conjunctiva and sclera are non-icteric and not injected. Cornea within normal limits. Periorbital areas with no swelling, redness, or edema. ENT: Nares patent. No nasal discharge, no septal abnormalities noted. Tympanic membranes are normal and external auditory canals are clear. Oropharynx with no redness, swelling, or masses, exudates, or evidence of obstruction, uvula midline. Mucous membranes moist. Neck: Trachea midline, no thyromegaly or masses palpated, and no cervical lymphadenopathy. Supple, full range of motion without nuchal rigidity, or vertebral point tenderness. No Meningismus. Chest/axilla: Normal chest wall appearance and motion. Nontender with no deformity. No lesions are appreciated. Cardiovascular: Regular rate and rhythm with a normal S1 and S2. No gallops, murmurs, or rubs. Normal PMI, no JVD. No pulse deficits. Respiratory: Lungs have equal breath sounds bilaterally, clear to auscultation and percussion. No rales, rhonchi or wheezes noted. No increased work of breathing, no retractions or nasal flaring. Abdomen/GI: Soft, non-tender, with normal bowel sounds. No distension or tympany. No guarding or rebound. No evidence of tenderness throughout. Back: No spinal tenderness. No costovertebral tenderness. Full range of motion. Female : Normal external genitalia. Skin: Warm, dry with normal turgor. Normal color with no rashes, no lesions, and no evidence of cellulitis. MS/ Extremity: Pulses equal, no cyanosis. Neurovascular intact. Full, normal range of motion. Psych: Awake, alert, with orientation to person, place and time. Behavior, mood, and affect are within normal limits. 18:13 Neuro: Orientation: no acute changes, Mentation: no acute changes, confused, Memory: unable to test, Cranial nerves: no acute changes, Cerebellar function: is grossly normal, Motor: moves all fours, Sensation: no obvious gross deficits, Gait: not tested. seizure activity, is not displayed by the patient. Vital Signs: 16:10 BP 155 / 83; Pulse 73; Resp 17; Temp 98; Pulse Ox 97% ; bp 17:16 BP 154 / 63; Pulse 66; Resp 16; Pulse Ox 100% ; bp 18:07 BP 98 / 50; Pulse 74; Resp 16; Pulse Ox 98% ; bp 20:28 BP 143 / 86; Pulse 66; Resp 16; Pulse Ox 99% on R/A; rv 21:00 BP 136 / 86; Pulse 71; Resp 16; Pulse Ox 100% on R/A; rv 21:48 BP 134 / 72; Pulse 71; Resp 17; Pulse Ox 100% on R/A; rv MDM: 16:12 Patient medically screened. [facility] 18:24 Data reviewed: vital signs, nurses notes, lab test result(s), EKG, radiologic studies, [facility] CT scan, plain films. 08/28 16:14 Order name: Basic Metabolic Panel; Complete Time: 18:07 [facility] 08/28 16:14 Order name: CBC with Diff; Complete Time: 18: [facility] 08/28 16:14 Order name: LFT's; Complete Time: 18: [facility] 08/28 16:14 Order name: Magnesium; Complete Time: 18: [facility] 08/28 16:14 Order name: NT PRO-BNP; Complete Time: 18:07 [facility] 08/28 16:14 Order name: PT-INR; Complete Time: 18:07 [facility] 08/28 16:14 Order name: Troponin (emerg Dept Use Only); Complete Time: 18:07 [facility] 08/28 16:14 Order name: Urine Culture [facility] 08/28 16:14 Order name: TSH; Complete Time: 18:07 [facility] 08/28 18:43 Order name: Procalcitonin [facility] 08/28 18:43 Order name: Lactate [facility] 08/28 18:47 Order name: Urine Dipstick--Ancillary (enter results) 08/28 20:10 Order name: CBC with Automated Diff [facility] 08/28 20:10 Order name: CBC with Automated Diff [facility] 08/28 16:14 Order name: XRAY Chest (1 view); Complete Time: 18:07 [facility] 08/28 16:14 Order name: EKG; Complete Time: 16:15 [facility] 08/28 16:14 Order name: Cardiac monitoring; Complete Time: 16:43 [facility] 08/28 16:14 Order name: EKG - Nurse/Tech; Complete Time: 17:06 [facility] 08/28 16:14 Order name: IV Saline Lock; Complete Time: 16:29 [facility] 08/28 16:14 Order name: CT Head Brain wo Cont; Complete Time: 18:07 [facility] 08/28 18:16 Order name: CT Stone Protocol; Complete Time: 19:28 [facility] 08/28 20:10 Order name: CONS Pharmacy Consult [facility] 08/28 20:10 Order name: Heart Healthy [facility] 08/28 20:10 Order name: Comprehensive Metabolic Panel [facility] 08/28 20:10 Order name: Comprehensive Metabolic Panel [facility] 08/28 16:14 Order name: Labs collected and sent; Complete Time: 16:43 [facility] 08/28 16:14 Order name: O2 Per Protocol; Complete Time: 16:32 [facility] 08/28 16:14 Order name: O2 Sat Monitoring; Complete Time: 16:32 [facility] 08/28 16:14 Order name: Urine Dipstick-Ancillary (obtain specimen); Complete Time: 18:04 [facility] 08/28 16:45 Order name: PO challenge; Complete Time: 16:59 [facility] Administered Medications: Discontinued: NS 0.9% 1000 ml IV at 125 ml/hr continuous 16:30 Drug: NS 0.9% 1000 ml Route: IV; Rate: 125 ml/hr; Site: right forearm; bp 19:27 Follow up: IV Status: Order to discontinue infusion rv 17:00 Drug: NS 0.9% 500 ml Route: IV; Rate: bolus; Site: right forearm; bp 17:30 Follow up: IV Status: Completed infusion; IV Intake: 500ml em 18:20 Drug: Potassium Effervescent Tablet 25 mEq Route: PO; em 18:51 Follow up: Response: No adverse reaction em 18:20 Drug: Rocephin 1 grams Route: IV; Rate: per protocol; Site: right forearm; em 18:52 Follow up: IV Status: Completed infusion; IV Intake: 100ml em 19:00 Drug: NS 0.9% with KCl 20 mEq/L 1000 ml Route: IV; Rate: 125 ml/hr; Site: right forearm;rv 21:49 Follow up: IV Status: Infusion continued upon admission rv Disposition: 08/28/19 18:19 Hospitalization ordered by Codey Chisholm for Inpatient Admission. Preliminary diagnosis are Altered mental status, unspecified, Dementia in other diseases classified elsewhere, Volume depletion, Hypokalemia, Urinary tract infection, site not specified, Unspecified kidney failure. - Bed requested for Telemetry/MedSurg (Inpatient). - Status is Inpatient Admission. rv - Condition is Fair. - Problem is new. - Symptoms have improved. UTI on Admission? Yes Signatures: Dispatcher [employer] EDMynor Burton MD MD cha Munoz, Edgar, RN RN em Garcia, Cindy, RN RN Blane Wylie RN RN bp Vicente, Ronaldo, JULIAN RN rv Corrections: (The following items were deleted from the chart) 21:42 18:19 Hospitalization Ordered by Codey Chisholm DO for Inpatient Admission. Preliminary cg diagnosis is Altered mental status, unspecified; Dementia in other diseases classified elsewhere; Volume depletion; Hypokalemia; Urinary tract infection, site not specified; Unspecified kidney failure. Bed requested for Telemetry/MedSurg (Inpatient). Status is Inpatient Admission. Condition is Fair. Problem is new. Symptoms have improved. UTI on Admission? Yes. [facility] 21:47 21:42 08/28/2019 18:19 Hospitalization Ordered by Codey Chisholm DO for Inpatient cg Admission. Preliminary diagnosis is Altered mental status, unspecified; Dementia in other diseases classified elsewhere; Volume depletion; Hypokalemia; Urinary tract infection, site not specified; Unspecified kidney failure. Bed requested for Telemetry/MedSurg (Inpatient). Status is Inpatient Admission. Condition is Fair. Problem is new. Symptoms have improved. UTI on Admission? Yes. cg 22:21 21:47 08/28/2019 18:19 Hospitalization Ordered by Codey Chisholm DO for Inpatient Admission. Preliminary diagnosis is Altered mental status, unspecified; Dementia in other diseases classified elsewhere; Volume depletion; Hypokalemia; Urinary tract infection, site not specified; Unspecified kidney failure. Bed requested for Telemetry/MedSurg (Inpatient). Status is Inpatient Admission. Condition is Fair. Problem is new. Symptoms have improved. UTI on Admission? Yes. cg
[2019-08-28] MEDS ORDERED: POTASSIUM 25 MEQ EFFERV TAB ONE (18:21)
[2019-08-28] MEDS ORDERED: NA CHLORIDE 0.9% 100 ML IV ONE (18:21)
[2019-08-28] MEDS ORDERED: CEFTRIAXONE/SWI 1gm 1 GM/10 ML SYR ONE (18:22)
--- NOTE | 2019-08-28 19:17 | RAD REPORT ---
EXAM DESCRIPTION: CT - Stone Protocol - 08/28/2019 6:50 pm CLINICAL HISTORY: ABD PAIN COMPARISON: No comparisons TECHNIQUE: Axial 5 mm thick images were obtained without oral or IV contrast. The [id number] span s the entirety of the system including uppermost abdomen and lung bases. All CT scans are performed using dose optimization technique as appropriate and may include automated exposure control or mA/KV adjustment according to patient size. FINDINGS: No hydronephrosis is present and no obstructing ureteral calculi. No suspicious renal mass es. Isodense masses and pyelonephritis are not excluded on a stone protocol CT scan. No urinary bladd er suspicious finding. No significant adrenal finding. Atrophic uterus seen without suspicious findin g. Ovaries are atrophic. No suspicious ovarian or adnexal finding. Imaged portions of the liver, spleen and pancreas show no suspicious findings on non-contrast imaging . No gallbladder or biliary tree abnormality identified. No gastric dilatation or wall thickening. No dilated large or small bowel. Patient has diverticulosis without diverticulitis. No active GI process seen. No hernia, mass or bulky lymphadenopathy noted. No free air, free fluid or inflammatory stranding. Advanced disc and bony degenerative changes are present. There is significant spinal stenosis at L3-4 and L4-5. No suspicion for discitis or osteomyelitis. Vascular calcifications are present. No abscess, inflammatory stranding or other suspicious finding in the soft tissues. No suspicious finding in the lung bases. IMPRESSION: Noncontrast abdomen and pelvis imaging shows no acute finding. Isodense masses and pyelonephritis are not excluded on a noncontrast study.
[2019-08-28] MEDS ORDERED: ONDANSETRON 4 MG/2 ML VIAL IV PRN (20:02)
[2019-08-28] MEDS ORDERED: ACETAMINOPHEN 500 MG TAB PO PRN (20:02)
[2019-08-28] MEDS ORDERED: MORPHINE 2 MG/ML SYR IV PRN (20:02)
[2019-08-28 20:12] LABS: Urine Blood NEGATIVE (NEG); Urine Glucose NEGATIVE (NEG); Urine Protein 2+ (NEG)
[2019-08-28] MEDS ORDERED: NA CHLORIDE 0.9% 1,000 ML IV SCH (21:00)
[2019-08-29 04:19] LABS: Basophils % 0.8 % (0-1.3); Hematocrit 36.7 % (36.0-45.0); Lymphocytes % 23.7 % (15.3-44.8); MPV 10.7 fL (7.6-11.3); RBC Red Blood Cell Count 3.97 M/uL (3.86-4.86)
[2019-08-29 04:42] LABS: Albumin 2.9 g/dL (3.4-5.0); Bilirubin Total 0.6 mg/dL (0.2-1.0); Potassium 3.4 mmol/L (3.5-5.1); Protein, Total 6.2 g/dL (6.4-8.2)
--- NOTE | 2019-08-29 06:40 | EKG ---
Test Date: 2019-08-28 Test Time: 16:58:29 Motel Keeper: NATAN MEASUREMENT RESULTS: Intervals: Rate: 70 MO: QRSD: 66 QT: 498 QTc: 537 [place]: P: MO: QRS: 30 T: -33 INTERPRETIVE STATEMENTS: Atrial fibrillation ST & T wave abnormality, non specific Prolonged QT Abnormal ECG Compared to ECG 08/17/2019 15:40:47 Prolonged QT interval now present Myocardial infarct finding no longer present Electronically Signed On 08-29-19 06:39:39 MANAGER [employer]GR[employer] by Braeden Oneil
--- NOTE | 2019-08-29 07:43 | P.HP ---
Certification for Inpatient Patient admitted to: Observation With expected LOS: <2 Midnights Patient will require the following post-hospital care: None Practitioner: I am a practitioner with admitting privileges, knowledge of patient current condition, hospital course, and medical plan of care. Services: Services provided to patient in accordance with Admission requirements found in Title 42 Section 412.3 of the Code of Federal Regulations Patient History Date of Service: 08/28/19 Reason for admission: UTI/AMS/Toxic encephalopathy/KRISHAN History of Present Illness: Patient is a 83-year-old female who came to the hospital with altered mental status. UA/urine dipstick showed possibility of a urinary tract infection. Patient has been confused and it is been felt that this was secondary to an infection. Patient also had acute kidney injury with pre renal azotemia. Patient was dehydrated. She does not eat her drink much according to the family members/caretakers. Allergies Penicillins Allergy (Verified 10/04/18 20:46) Anaphylaxis Home Medications: Levothyroxine Sodium 25 mg PO [id number] 10/04/18 Apixaban [Eliquis *] 2.5 mg PO BID #60 tablet 10/06/18 Atorvastatin Calcium [Lipitor] 40 mg PO BEDTIME #30 tab 10/06/18 Docusate [Colace Cap*] 100 mg PO DAILY #30 cap 10/06/18 Metoprolol Tartrate [Lopressor*] 25 mg PO BID 6AM 6PM #60 tab 10/06/18 Acetaminophen [Tylenol Extra Strength] 1 tab PO Q4HP PRN 10/07/18 Aspirin [Aspirin EC 81 MG] 81 mg PO DAILY 10/07/18 Cranberry Fruit Extract 400 mg PO BID #120 cap 10/17/18 Duloxetine [Cymbalta *] 20 mg PO DAILY #30 cap 10/17/18 Clonidine HCl [Catapres] 1 tab PO BID 08/29/19 Multivitamin/Iron/Folic Acid [Centrum Women Tablet] 1 tab PO DAILY 08/29/19 Ensure Enlive 237 ml PO BID #60 can 09/03/19 Mirtazapine [Remeron*] 7.5 mg PO BEDTIME #30 tab 09/03/19 Quetiapine [Seroquel*] 25 mg PO BEDTIME #30 tab 09/03/19 Sennosides [Senna] 8.6 mg PO BID #60 tablet 09/03/19 - Past Medical/Surgical History Has patient received pneumonia vaccine in the past: Yes Diabetic: No -: Hypothyroidism -: History breast cancer- complete mastectomy both-unable to recall year -: HTN -: CVA -: dementia -: Afib -: Bilateral breast mastectomy Psychosocial/ Personal History: Patient is single. She lives by herself. She has 3 children. - Family History Mother History Unknown: Yes Medical History: Other (see notes) Notes: unable to assess Sister History Unknown: Yes Medical History: Other (see notes) - Social History Smoking Status: Never smoker Alcohol use: No CD- Drugs: No Caffeine use: Yes Place of Residence: Home Review of Systems is unable to be obtained Physical Examination - Vital Signs Temperature: 97.2 F Blood Pressure: 150/80 Pulse: 64 Respirations: 16 Pulse Ox (%): 97 - Physical Exam General: Alert, In no apparent distress, Confused HEENT: Atraumatic, PERRLA, Mucous membr. moist/pink, EOMI, Sclerae nonicteric Neck: Supple, 2+ carotid pulse no bruit, No LAD, Without JVD or thyroid abnormality Respiratory: Clear to auscultation bilaterally, Normal air movement Cardiovascular: Regular rate/rhythm, Normal S1 S2, No murmurs Gastrointestinal: Normal bowel sounds, Soft and benign, Non-distended, No tenderness, No rebound, No guarding Musculoskeletal: No clubbing, No swelling, No tenderness Integumentary: No rashes Neurological: Normal tone, Sensation intact, Cranial nerves 3-12 intact, Normal affect, Abnormal gait, Abnormal speech, Abnormal strength Lymphatics: No axilla or inguinal lymphadenopathy - Studies Laboratory Data (last 24 hrs) 08/28/19 16:40: PT 23.9 H, INR 2.08 08/28/19 16:40: WBC 10.0 D, Hgb 13.8, Hct 41.2, Plt Count 157 08/28/19 16:40: Sodium 139, Potassium 3.2 L, BUN 32 H, Creatinine 1.40 H, Glucose 103, Magnesium 1.9, Total Bilirubin 0.6, AST 39 H, ALT 30, Alkaline Phosphatase 116 Assessment & Plan - Problems (Diagnosis) (1) UTI (urinary tract infection) Status: Acute (2) KRISHAN (acute kidney injury) Status: Resolved (3) Toxic encephalopathy Status: Resolved (4) AMS (altered mental status) Status: Acute - Plan PLAN: 1. IV ABX 2. NEUROCHECKS 3. MONITOR RENAL FUNCTION 4. MONITOR LABS CLOSELY 5. GI/DVT PROPHYLAXIS - Advance Directives Does patient have a Living Will: No Does patient have a Durable POA for Healthcare: No - Code Status/Comfort Care Code Status Assessed: Yes Code Status: Full Code Critical Care: No Time Spent Managing PTS Care (In Minutes): 45
[2019-08-29] MEDS: CEFTRIAXONE/SWI 1gm 1 GM/10 ML SYR IV SCH (07:51)
[2019-08-29] MEDS ORDERED: D5 0.45 NS 1,000 ML IV SCH (08:00)
[2019-08-29] MEDS ORDERED: CEFTRIAXONE 1 GM/NS 50 ML 1 GM/50 ML BAG IV SCH (09:00)
[2019-08-29 12:18] LABS: Urine Appearance CLEAR; Urine Bilirubin NEGATIVE (NEG); Urine Blood NEGATIVE (NEG); Urine Color YELLOW; Urine Glucose NEGATIVE (NEG); Urine Protein NEGATIVE (NEG)
[2019-08-29] MEDS ORDERED: POTASSIUM 25 MEQ EFFERV TAB PO ONE (12:26)
[2019-08-29 12:30] LABS: Urine Bacteria <20 /HPF (<20); Urine RBC <5 /HPF (NONE SEEN)
[2019-08-29 12:37] LABS: Urine Culture Reflex Order NOT NEEDED
[2019-08-29] MEDS: cloNIDine HCL 0.1 MG TAB PO SCH ×2 (13:39→21:04)
--- NOTE | 2019-08-29 13:41 | P.PN ---
Subjective Date of Service: 08/29/19 Chief Complaint: UTI/AMS/Toxic encephalopathy/KRISHAN Patient is awake, communicating but confuse. She is oriented only to self. She denies any complain. Stress Test Technician reports poor oral intake. No recorded fever. Serum creatinine has normalized. Physical Examination - Vital Signs Temperature: 98.6 F Blood Pressure: 197/86 Pulse: 74 Respirations: 14 Pulse Ox (%): 95 - Physical Exam General: In no apparent distress, Oriented x1, Confused HEENT: Mucous membr. moist/pink, Sclerae nonicteric Neck: Supple, JVD not distended Respiratory: Clear to auscultation bilaterally, Normal air movement Cardiovascular: No edema, Regular rate/rhythm, Normal S1 S2 Gastrointestinal: Normal bowel sounds, Soft and benign, Non-distended, No tenderness Musculoskeletal: No swelling Integumentary: No rashes, No erythema Neurological: Normal speech, Normal strength at 5/5 x4 extr - Studies Laboratory Data (last 24 hrs) 08/29/19 03:45: Sodium 146 H, Potassium 3.4 L, BUN 23 H, Creatinine 0.81, Glucose 84, Total Bilirubin 0.6, AST 31, ALT 24, Alkaline Phosphatase 96 08/29/19 03:45: WBC 8.6, Hgb 12.5, Hct 36.7, Plt Count 136 L 08/28/19 16:40: PT 23.9 H, INR 2.08 08/28/19 16:40: WBC 10.0 D, Hgb 13.8, Hct 41.2, Plt Count 157 08/28/19 16:40: Sodium 139, Potassium 3.2 L, BUN 32 H, Creatinine 1.40 H, Glucose 103, Magnesium 1.9, Total Bilirubin 0.6, AST 39 H, ALT 30, Alkaline Phosphatase 116 Assessment And Plan - Current Problems (Diagnosis) (1) KRISHAN (acute kidney injury) Current Visit: Yes Status: Acute (2) Toxic encephalopathy Current Visit: Yes Status: Acute (3) UTI (urinary tract infection) Current Visit: Yes Status: Acute (4) Dementia Current Visit: Yes Status: Acute (5) Hypertension Current Visit: Yes Status: Acute (6) Chronic atrial fibrillation Current Visit: Yes Status: Acute - Plan Continue IV hydration with half-normal saline. Acute renal failure has resolved. Continue IV Rocephin. Follow urine culture Continue Apixaban. Continue home antihypertensives. Hydralazine IV p.r.n. for BP spikes. Perioidic orientation Monitor for agitation.
[2019-08-29 15:16] VITALS: BMI 19.0
[2019-08-29] MEDS: HYDRALAZINE HCL 20 MG/ML VIAL IV PRN (15:33)
[2019-08-29] MEDS: METOPROLOL TAR 25 MG TAB PO SCH (18:00)
[2019-08-29] MEDS: D5 0.45 NS 1,000 ML IV SCH (18:38)
[2019-08-29] MEDS: NACHLORIDE 0.45% 1,000 ML IV SCH ×2 (20:00→21:04)
[2019-08-29] MEDS: ENSURE ENLIVE 237 ML CAN PO SCH (21:00)
[2019-08-29] MEDS: APIXABAN 2.5 MG TABLET PO SCH (21:04)
[2019-08-29] MEDS: ATORVASTATIN 40 MG TAB PO SCH (21:04)
[2019-08-29] MEDS: CRANBERRY FRUIT EXTRACT 200 MG CAP PO SCH (21:04)
[2019-08-30] MEDS: LEVOTHYROXINE SOD 0.025 MG TAB PO SCH ×2 (07:19→08:28)
[2019-08-30] MEDS: METOPROLOL TAR 25 MG TAB PO SCH ×3 (07:19→17:21)
[2019-08-30] MEDS: cloNIDine HCL 0.1 MG TAB PO SCH ×2 (08:25→22:52)
[2019-08-30] MEDS: APIXABAN 2.5 MG TABLET PO SCH ×2 (08:28→22:53)
[2019-08-30] MEDS: DULOXETINE 20 MG CAP PO SCH (08:29)
[2019-08-30] MEDS: ASPIRIN EC 81 MG TAB PO SCH (08:29)
[2019-08-30] MEDS: MULTIVIT W/ MINERAL TAB PO SCH (08:29)
[2019-08-30] MEDS: DOCUSATE NA 100 MG CAP PO SCH (08:29)
[2019-08-30 08:33] LABS: Potassium 3.2 mmol/L (3.5-5.1)
[2019-08-30] MEDS: D5 0.45 NS 1,000 ML IV SCH (08:36)
[2019-08-30] MEDS ORDERED: POTASSIUM CL SA 10 MEQ TAB PO ONE (08:43)
[2019-08-30] MEDS: CRANBERRY FRUIT EXTRACT 200 MG CAP PO SCH ×2 (09:02→22:52)
[2019-08-30] MEDS: ENSURE ENLIVE 237 ML CAN PO SCH ×2 (09:04→21:00)
[2019-08-30] MEDS: CEFTRIAXONE/SWI 1gm 1 GM/10 ML SYR IV SCH (09:05)
[2019-08-30] MEDS ORDERED: LORazepam 2 MG/ML VIAL IV ONE (13:59)
--- NOTE | 2019-08-30 16:42 | P.PN ---
Subjective Date of Service: 08/30/19 Chief Complaint: UTI/AMS/Toxic encephalopathy/KRISHAN Patient reported to have been agitated last night. She has been afebrile. She was also agitated this afternoon. She was given low-dose IV Ativan which controlled the agitation. Initially EKG demonstrated prolonged QT interval. Repeat EKG today shows normal QT interval. Physical Examination - Vital Signs Temperature: 98.4 F Blood Pressure: 140/70 Pulse: 73 Respirations: 18 Pulse Ox (%): 98 - Physical Exam General: Confused HEENT: Mucous membr. moist/pink, Sclerae nonicteric Neck: Supple, JVD not distended Respiratory: Clear to auscultation bilaterally, Normal air movement Cardiovascular: No edema, Regular rate/rhythm, Normal S1 S2 Capillary refill: <2 Seconds Gastrointestinal: Normal bowel sounds, Soft and benign, Non-distended, No tenderness Musculoskeletal: No swelling, No erythema Integumentary: No rashes Neurological: Normal speech, Normal strength at 5/5 x4 extr, Dementia Assessment And Plan - Current Problems (Diagnosis) (1) KRISHAN (acute kidney injury) Current Visit: Yes Status: Resolved (2) Toxic encephalopathy Current Visit: Yes Status: Acute (3) UTI (urinary tract infection) Current Visit: Yes Status: Acute (4) Dementia Current Visit: Yes Status: Acute (5) Hypertension Current Visit: Yes Status: Acute (6) Chronic atrial fibrillation Current Visit: Yes Status: Acute (7) Hypokalemia Current Visit: Yes Status: Acute - Plan Continue IV hydration with half-normal saline. Potassium replacement. Acute renal failure has resolved. Continue IV Rocephin. Follow urine culture Continue Apixaban. Continue home antihypertensives. Hydralazine IV p.r.n. for BP spikes. Perioidic orientation Seroquel at bedtime. Haldol IV p.r.n. I spoke to the son who is considering long-term/assisted living placement. Social service/Case management to assist with placement.
[2019-08-30] MEDS: D5.45NS W/KCL 20MEQ 20 MEQ/1,000 ML BAG IV SCH (17:20)
[2019-08-30] MEDS: HYDRALAZINE HCL 20 MG/ML VIAL IV PRN (20:23)
[2019-08-30] MEDS: ATORVASTATIN 40 MG TAB PO SCH (22:52)
[2019-08-30] MEDS: QUETIAPINE 25 MG TAB PO SCH (22:53)
[2019-08-31] MEDS: HYDRALAZINE HCL 20 MG/ML VIAL IV PRN ×2 (05:03→15:45)
[2019-08-31] MEDS: LEVOTHYROXINE SOD 0.025 MG TAB PO SCH (06:00)
[2019-08-31] MEDS: METOPROLOL TAR 25 MG TAB PO SCH ×2 (06:00→17:18)
[2019-08-31 06:21] LABS: BUN Blood Urea Nitrogen 9 mg/dL (7-18); Bicarbonate 25 mmol/L (21-32); Glucose Level 116 mg/dL (74-106); Potassium 3.8 mmol/L (3.5-5.1); Sodium Level 144 mmol/L (136-145)
[2019-08-31] MEDS: D5.45NS W/KCL 20MEQ 20 MEQ/1,000 ML BAG IV SCH ×2 (08:24→20:52)
[2019-08-31] MEDS: ENSURE ENLIVE 237 ML CAN PO SCH ×2 (09:00→20:49)
[2019-08-31] MEDS ORDERED: POTASSIUM CL SA 10 MEQ TAB PO ONE (09:00)
[2019-08-31] MEDS: CEFTRIAXONE/SWI 1gm 1 GM/10 ML SYR IV SCH (09:12)
[2019-08-31] MEDS: cloNIDine HCL 0.1 MG TAB PO SCH ×2 (09:13→20:48)
[2019-08-31] MEDS: DULOXETINE 20 MG CAP PO SCH (09:13)
[2019-08-31] MEDS: MULTIVIT W/ MINERAL TAB PO SCH (09:13)
[2019-08-31] MEDS: ASPIRIN EC 81 MG TAB PO SCH (09:13)
[2019-08-31] MEDS: CRANBERRY FRUIT EXTRACT 200 MG CAP PO SCH ×2 (09:13→20:48)
[2019-08-31] MEDS: APIXABAN 2.5 MG TABLET PO SCH ×2 (09:13→20:47)
[2019-08-31] MEDS: DOCUSATE NA 100 MG CAP PO SCH (09:14)
--- NOTE | 2019-08-31 13:37 | P.PN ---
Subjective Date of Service: 08/31/19 Chief Complaint: UTI/AMS/Toxic encephalopathy/KRISHAN No agitation reported last night. Patient did well with oral Seroquel and did not require p.r.n. Haldol. She was awake this morning during my examination. She has been afebrile. Private Inquiry Agent also mention she ate more during dinner yesterday. Physical Examination - Vital Signs Temperature: 98.6 F Blood Pressure: 133/54 Pulse: 78 Respirations: 14 Pulse Ox (%): 97 - Physical Exam General: Confused, Other (Awake) HEENT: Mucous membr. moist/pink, Sclerae nonicteric Neck: Supple, JVD not distended Respiratory: Clear to auscultation bilaterally, Normal air movement Cardiovascular: No edema, Regular rate/rhythm, Normal S1 S2 Gastrointestinal: Normal bowel sounds, Soft and benign, Non-distended, No tenderness Musculoskeletal: No swelling, No tenderness Integumentary: No rashes Neurological: Normal speech, Normal strength at 5/5 x4 extr, Other (Obey commands, nonfocal.) Assessment And Plan - Current Problems (Diagnosis) (1) KRISHAN (acute kidney injury) Current Visit: Yes Status: Resolved (2) Toxic encephalopathy Current Visit: Yes Status: Acute (3) UTI (urinary tract infection) Current Visit: Yes Status: Acute (4) Dementia Current Visit: Yes Status: Acute (5) Hypertension Current Visit: Yes Status: Acute (6) Chronic atrial fibrillation Current Visit: Yes Status: Acute (7) Hypokalemia Current Visit: Yes Status: Resolved - Plan Continue IV fluid maintenance given poor oral intake. Acute renal failure has resolved. Urine culture: Mixed growth. Continue IV Rocephin. Continue Apixaban. Continue home antihypertensives. Hydralazine IV p.r.n. for BP spikes. Perioidic orientation Seroquel at bedtime. Haldol IV p.r.n. Case management to assist with disposition
--- NOTE | 2019-08-31 13:46 | EKG ---
Test Date: 2019-08-31 Test Time: 10:58:26 Executive Director Of Nursing: MERLENE MEASUREMENT RESULTS: Intervals: Rate: 83 [place]: QRSD: 70 QT: 382 QTc: 448 [place]: P: [place]: QRS: 56 T: -11 INTERPRETIVE STATEMENTS: Undetermined rhythm Anterior infarct, age undetermined Abnormal ECG Compared to ECG 08/30/2019 14:28:54 Myocardial infarct finding now present Electronically Signed On 08-31-19 13:45:32 FUR TANNER by Abraham Cortés
--- NOTE | 2019-08-31 13:50 | EKG ---
Test Date: 2019-08-30 Test Time: 14:28:54 Music Coordinator: MERLENE MEASUREMENT RESULTS: Intervals: Rate: 70 RI: QRSD: 72 QT: 392 QTc: 423 [place]: P: RI: QRS: 49 T: 5 INTERPRETIVE STATEMENTS: afib Compared to ECG 08/28/2019 16:58:[address] (T wave) deviation no longer present Prolonged QT interval no longer present Electronically Signed On 08-31-19 13:46:56 NURSE PRACTITIONER PHYSICIANS ASSISTANT by Abraham Cortés
[2019-08-31] MEDS: QUETIAPINE 25 MG TAB PO SCH (20:48)
[2019-08-31] MEDS: ATORVASTATIN 40 MG TAB PO SCH (20:48)
[2019-09-01] MEDS: HYDRALAZINE HCL 20 MG/ML VIAL IV PRN (00:21)
[2019-09-01] MEDS: METOPROLOL TAR 25 MG TAB PO SCH ×2 (05:37→17:43)
[2019-09-01] MEDS: LEVOTHYROXINE SOD 0.025 MG TAB PO SCH (05:38)
[2019-09-01 07:49] LABS: Potassium 4.3 mmol/L (3.5-5.1)
[2019-09-01] MEDS: ENSURE ENLIVE 237 ML CAN PO SCH ×2 (09:00→19:50)
[2019-09-01] MEDS: CEFTRIAXONE/SWI 1gm 1 GM/10 ML SYR IV SCH (09:26)
[2019-09-01] MEDS: CRANBERRY FRUIT EXTRACT 200 MG CAP PO SCH ×2 (09:26→19:48)
[2019-09-01] MEDS: ASPIRIN EC 81 MG TAB PO SCH (09:26)
[2019-09-01] MEDS: DULOXETINE 20 MG CAP PO SCH (09:26)
[2019-09-01] MEDS: DOCUSATE NA 100 MG CAP PO SCH (09:27)
[2019-09-01] MEDS: MULTIVIT W/ MINERAL TAB PO SCH (09:27)
[2019-09-01] MEDS: cloNIDine HCL 0.1 MG TAB PO SCH ×2 (09:27→19:48)
[2019-09-01] MEDS: APIXABAN 2.5 MG TABLET PO SCH ×2 (09:28→19:50)
[2019-09-01] MEDS: D5.45NS W/KCL 20MEQ 20 MEQ/1,000 ML BAG IV SCH ×2 (09:30→22:32)
--- NOTE | 2019-09-01 13:09 | P.PN ---
Subjective Date of Service: 09/01/19 Chief Complaint: UTI/AMS/Toxic encephalopathy/KRISHAN No agitation reported last night. Patient doing well. Winding Inspector states she is eating more. She participated in physical therapy yesterday and walked several feet with a walker. I met with the son and updated him on patient's clinical condition and the plan of care. Physical Examination - Vital Signs Temperature: 98.5 F Blood Pressure: 140/66 Pulse: 70 Respirations: 16 Pulse Ox (%): 96 - Physical Exam General: In no apparent distress, Confused Neck: Supple Respiratory: Clear to auscultation bilaterally, Normal air movement Cardiovascular: No edema, Regular rate/rhythm, Normal S1 S2 Gastrointestinal: Normal bowel sounds, Soft and benign, Non-distended, No tenderness Musculoskeletal: No swelling, No erythema Integumentary: No rashes Neurological: Normal strength at 5/5 x4 extr, Dementia - Studies Microbiology Data (last 24 hrs): 08/28/19 18:00 Catheterized Urine [place] Count - Final >100,000 CFU/ML. 08/28/19 18:00 Catheterized Urine - Final Staph Epidermidis Assessment And Plan - Current Problems (Diagnosis) (1) KRIHSAN (acute kidney injury) Current Visit: Yes Status: Resolved (2) Toxic encephalopathy Current Visit: Yes Status: Resolved (3) UTI (urinary tract infection) Current Visit: Yes Status: Acute (4) Dementia Current Visit: Yes Status: Acute (5) Hypertension Current Visit: Yes Status: Acute (6) Chronic atrial fibrillation Current Visit: Yes Status: Chronic (7) Hypokalemia Current Visit: Yes Status: Resolved - Plan Continue IV fluid maintenance given poor oral intake. Acute renal failure has resolved. Urine culture: Mixed growth. Continue IV Rocephin. Continue Apixaban. Continue home antihypertensives. Hydralazine IV p.r.n. for BP spikes. Perioidic orientation Seroquel at bedtime. Haldol IV p.r.n. Case management to assist with disposition. Son is looking at home with home health or assisted living placement.
[2019-09-01] MEDS: ATORVASTATIN 40 MG TAB PO SCH (19:48)
[2019-09-01] MEDS: QUETIAPINE 25 MG TAB PO SCH (19:49)
[2019-09-02] MEDS: LEVOTHYROXINE SOD 0.025 MG TAB PO SCH (05:34)
[2019-09-02] MEDS: METOPROLOL TAR 25 MG TAB PO SCH ×2 (05:34→17:15)
[2019-09-02] MEDS: ENSURE ENLIVE 237 ML CAN PO SCH ×2 (09:00→20:37)
[2019-09-02] MEDS: DOCUSATE NA 100 MG CAP PO SCH (09:39)
[2019-09-02] MEDS: MULTIVIT W/ MINERAL TAB PO SCH (09:40)
[2019-09-02] MEDS: DULOXETINE 20 MG CAP PO SCH (09:40)
[2019-09-02] MEDS: CRANBERRY FRUIT EXTRACT 200 MG CAP PO SCH ×2 (09:40→20:35)
[2019-09-02] MEDS: APIXABAN 2.5 MG TABLET PO SCH ×2 (09:40→20:36)
[2019-09-02] MEDS: CEFTRIAXONE/SWI 1gm 1 GM/10 ML SYR IV SCH (09:40)
[2019-09-02] MEDS: cloNIDine HCL 0.1 MG TAB PO SCH ×2 (09:40→20:34)
[2019-09-02] MEDS: ASPIRIN EC 81 MG TAB PO SCH (09:40)
[2019-09-02] MEDS: D5.45NS W/KCL 20MEQ 20 MEQ/1,000 ML BAG IV SCH (12:39)
--- NOTE | 2019-09-02 13:24 | P.PN ---
Subjective Date of Service: 09/02/19 Chief Complaint: UTI/AMS/Toxic encephalopathy/KRISHAN Son reports patient was up all night but not agitated. She was more interactive and obeying commands during my encounter this morning. Sterile Supply Technician states she is eating more. She ambulated with a walker in the hallway today. Physical Examination - Vital Signs Temperature: 97.9 F Blood Pressure: 159/78 Pulse: 76 Respirations: 15 Pulse Ox (%): 96 - Physical Exam General: In no apparent distress HEENT: Mucous membr. moist/pink Neck: JVD not distended Respiratory: Clear to auscultation bilaterally, Normal air movement Cardiovascular: No edema, Regular rate/rhythm, Normal S1 S2 Gastrointestinal: Normal bowel sounds, Soft and benign, Non-distended, No tenderness Musculoskeletal: No swelling, No erythema Integumentary: No rashes Neurological: Normal strength at 5/5 x4 extr Assessment And Plan - Current Problems (Diagnosis) (1) KRISHAN (acute kidney injury) Current Visit: Yes Status: Resolved (2) Toxic encephalopathy Current Visit: Yes Status: Resolved (3) UTI (urinary tract infection) Current Visit: Yes Status: Acute (4) Dementia Current Visit: Yes Status: Acute (5) Hypertension Current Visit: Yes Status: Acute (6) Chronic atrial fibrillation Current Visit: Yes Status: Chronic (7) Hypokalemia Current Visit: Yes Status: Resolved - Plan Discontinue IV fluid Patient to completed 5 days of IV Rocephin today. Continue Apixaban. Continue home antihypertensives. Hydralazine IV p.r.n. for BP spikes. Perioidic orientation Seroquel at bedtime. Added Remeron for appetite, mood and and also to aid sleep at night. Haldol IV p.r.n. Case management to assist with disposition.
[2019-09-02] MEDS: HYDRALAZINE HCL 20 MG/ML VIAL IV PRN (16:59)
[2019-09-02] MEDS: ATORVASTATIN 40 MG TAB PO SCH (20:35)
[2019-09-02] MEDS: QUETIAPINE 25 MG TAB PO SCH (20:36)
[2019-09-02] MEDS ORDERED: MIRTAZAPINE 15 MG TAB PO SCH (21:00)
[2019-09-02] MEDS: HALOPERIDOL LACT 5 MG/ML INJ IV PRN (23:54)
[2019-09-03] MEDS: D5.45NS W/KCL 20MEQ 20 MEQ/1,000 ML BAG IV SCH ×2 (02:07→14:24)
[2019-09-03] MEDS: METOPROLOL TAR 25 MG TAB PO SCH (06:25)
[2019-09-03] MEDS: LEVOTHYROXINE SOD 0.025 MG TAB PO SCH (06:26)
[2019-09-03 08:45] VITALS: O2SAT 96
[2019-09-03] MEDS: APIXABAN 2.5 MG TABLET PO SCH (08:51)
[2019-09-03] MEDS: ASPIRIN EC 81 MG TAB PO SCH (08:51)
[2019-09-03] MEDS: cloNIDine HCL 0.1 MG TAB PO SCH (08:51)
[2019-09-03] MEDS: DOCUSATE NA 100 MG CAP PO SCH (08:51)
[2019-09-03] MEDS: ENSURE ENLIVE 237 ML CAN PO SCH (08:51)
[2019-09-03] MEDS: DULOXETINE 20 MG CAP PO SCH (08:51)
[2019-09-03] MEDS: CRANBERRY FRUIT EXTRACT 200 MG CAP PO SCH (08:51)
[2019-09-03] MEDS: MULTIVIT W/ MINERAL TAB PO SCH (08:51)
[2019-09-03] MEDS: HALOPERIDOL LACT 5 MG/ML INJ IV PRN (11:57)
--- NOTE | 2019-09-03 14:22 | P.DS ---
Admission Date: 08/29/19 Discharge Date: 09/03/19 Disposition: ROUTINE DISCHARGE Discharge Condition: FAIR Reason for Admission: UTI/AMS/Toxic encephalopathy/KRISHAN - Problems (1) KRISHAN (acute kidney injury) Status: Resolved (2) Toxic encephalopathy Status: Resolved (3) UTI (urinary tract infection) Status: Acute (4) Hypertension Status: Acute (5) Chronic atrial fibrillation Status: Chronic (6) Hypokalemia Status: Resolved (7) Alzheimer's dementia with behavioral disturbance Status: Acute Brief History of Present Illness: 83-year-old woman with a history of chronic atrial fibrillation on Eliquis anticoagulation, history of Alzheimer dementia was brought to the emergency department due to acute confusion, and aggressive behavior. Materials Engineering Technician reported patient have had been refusing to eat, more agitated, and confused than before. Urine dipstick was done with suggested the presence of UTI. Patient was then brought to the emergency department to be evaluated. Her urinalysis in the ED suggested the presence of UTI. Blood chemistry also demonstrated acute renal failure and hypernatremia likely secondary to dehydration from poor oral intake. Patient was then admitted for further management. Hospital Course: Patient admitted to the medical floor and resuscitated with IV fluid. The acute renal failure and hypernatremia resolved with treatment. She was also treated with IV Rocephin for UTI. Urine culture yielded mixed growth. Patient completed 5 days of IV antibiotics. Patient's agitation, hallucinations, refusal to eat, and other behavioral issues did not respond to the UTI treatment. She has dementia with behavioral disturbance which is progressing. Patient's son agreed to hospice evaluation. She was placed on oral Seroquel at bedtime for the agitation, and Remeron for appetite mood and insomnia. She has reached maximal hospital benefit. UTI has been treated. The patient is discharged to home. Hospice has been contacted to evaluate patient for intake into hospice. Vital Signs/Physical Exam: Temp Pulse Resp BP Pulse Ox 97.7 F 59 16 148/67 H 96 09/03/19 08:00 09/03/19 08:51 09/03/19 08:00 09/03/19 08:51 09/03/19 08:00 General: In no apparent distress, Confused HEENT: Mucous membr. moist/pink, Sclerae nonicteric Neck: Supple, JVD not distended Respiratory: Clear to auscultation bilaterally, Normal air movement Cardiovascular: No edema, Regular rate/rhythm, Normal S1 S2 Gastrointestinal: Normal bowel sounds, Soft and benign, Non-distended, No tenderness Musculoskeletal: No swelling, No erythema Integumentary: No rashes Neurological: Normal strength at 5/5 x4 extr, Dementia Laboratory Data at Discharge: WBC 8.6 K/uL (4.3-10.9) 08/29/19 03:45 Hgb 12.5 g/dL (12.0-15.0) 08/29/19 03:45 Hct 36.7 % (36.0-45.0) 08/29/19 03:45 Plt Count 136 K/uL (152-406) L 08/29/19 03:45 PT 23.9 SECONDS (9.5-12.5) H 08/28/19 16:40 INR 2.08 08/28/19 16:40 Sodium 144 mmol/L (136-145) 09/01/19 07:12 Potassium 4.3 mmol/L (3.5-5.1) 09/01/19 07:12 BUN 10 mg/dL (7-18) 09/01/19 07:12 Creatinine 0.68 mg/dL (0.55-1.3) 09/01/19 07:12 Glucose 104 mg/dL (74-106) 09/01/19 07:12 Magnesium 1.9 mg/dL (1.8-2.4) 08/28/19 16:40 Total Bilirubin 0.6 mg/dL (0.2-1.0) 08/29/19 03:45 AST 31 U/L (15-37) 08/29/19 03:45 ALT 24 U/L (12-78) 08/29/19 03:45 Alkaline Phosphatase 96 U/L (45-117) 08/29/19 03:45 Home Medications: Levothyroxine Sodium 25 mg PO [id number] 10/04/18 Apixaban [Eliquis *] 2.5 mg PO BID #60 tablet 10/06/18 Atorvastatin Calcium [Lipitor] 40 mg PO BEDTIME #30 tab 10/06/18 Docusate [Colace Cap*] 100 mg PO DAILY #30 cap 10/06/18 Metoprolol Tartrate [Lopressor*] 25 mg PO BID 6AM 6PM #60 tab 10/06/18 Acetaminophen [Tylenol Extra Strength] 1 tab PO Q4HP PRN 10/07/18 Aspirin [Aspirin EC 81 MG] 81 mg PO DAILY 10/07/18 Cranberry Fruit Extract 400 mg PO BID #120 cap 10/17/18 Duloxetine [Cymbalta *] 20 mg PO DAILY #30 cap 10/17/18 Clonidine HCl [Catapres] 1 tab PO BID 08/29/19 Multivitamin/Iron/Folic Acid [Centrum Women Tablet] 1 tab PO DAILY 08/29/19 Ensure Enlive 237 ml PO BID #60 can 09/03/19 Mirtazapine [Remeron*] 7.5 mg PO BEDTIME #30 tab 09/03/19 Quetiapine [Seroquel*] 25 mg PO BEDTIME #30 tab 09/03/19 Sennosides [Senna] 8.6 mg PO BID #60 tablet 09/03/19 New Medications: Ensure Enlive 237 ml PO BID #60 can Mirtazapine [Remeron*] 7.5 mg PO BEDTIME #30 tab Quetiapine [Seroquel*] 25 mg PO BEDTIME #30 tab Sennosides [Senna] 8.6 mg PO BID #60 tablet Diet: Regular Activity: Fall precautions Time spent managing pt's care (in minutes): 45
[2019-09-11 06:59] VITALS: BP 150/80; TEMP 97.2
== END 2019-09-03 17:28 | disposition hospice, home (50) | DRG 682 ==
LOC: ER 16:00 → ERHOLD 20:12 → 4TH 22:00 → OBSVTOIN 08-29 11:59
PROVIDERS: ADMIT Hospitalist; ATTEND Internal Medicine
DX: N17.9 Acute kidney failure, unspecified (principal); G92 Toxic encephalopathy; N39.0 Urinary tract infection, site not specified; I48.20 Chronic atrial fibrillation, unspecified; E87.0 Hyperosmolality and hypernatremia; E03.9 Hypothyroidism, unspecified; I10 Essential (primary) hypertension; E87.6 Hypokalemia; G30.9 Alzheimer's disease, unspecified; F02.80 Dementia in other diseases classified elsewhere, unspecified severity, without behavioral disturbance, psychotic disturbance, mood disturbance, and anxiety; Z85.3 Personal history of malignant neoplasm of breast; Z86.73 Personal history of transient ischemic attack (TIA), and cerebral infarction without residual deficits
CPT/HCPCS: 36415; 70450; 71045; 74176; 76377; 80048; 80053; 80076; 81001; 81003; 83605; 83735; 83880; 84132; 84145; 84443; 84484; 85025; 85610; 87077; 87086; 87088; 87186; 93005; 96361; 96365; 97116; 97161; 97530; 99285; G0378; J0360; J0696; J1630; J7030; J7040; J7799